=== PATIENT | female | born 1980 ===

== ENCOUNTER 2020-09-16 15:10 | Outpatient (REF) | payer OTHER, SELFPAY ==
--- NOTE | 2020-09-16 | MM_ITS ---
EXAMINATION: MM SCREENING DIGITAL BREAST TOMOSYNTHESIS, BILATERAL CLINICAL INFORMATION: Screening. Asymptomatic. The lifetime risk of breast cancer based on the Tyrer-Cuzick Model is 19.0%. COMPARISON: Mammography: February 22, 2019 and studies dating back to November 25, 2015 TECHNIQUE: Digital breast tomosynthesis is performed in both the craniocaudal and mediolateral oblique views along with computer-aided detection (CAD). Synthesized 2D images are generated from the tomosynthesis. Bilateral exaggerated craniocaudal views performed. FINDINGS: The breasts are extremely dense, which lowers the sensitivity of mammography (ACR BI-RADS breast composition Category d). There are no significant masses, abnormal calcifications, or other abnormalities. A stable cyst is seen within the superior aspect of the left breast. MM/MM tomosynthesis screening BI IMPRESSION: There are no significant changes from prior study. ASSESSMENT: BI-RADS 2: Benign RECOMMENDATION: Routine annual mammography screening. This patient's information was entered into a reminder system with a target due date for their next mammogram.
== END 2020-09-16 15:11 | disposition home or self-care (01) ==
LOC: HO.MAMMO 15:10
PROVIDERS: PCP Pediatrics; Visit Provider Pediatrics
DX: Z12.31 Encounter for screening mammogram for malignant neoplasm of breast (principal)
CPT/HCPCS: 77063; 77067

== ENCOUNTER 2021-11-09 15:27 | Outpatient (REF) | payer OTHER, SELFPAY ==
--- NOTE | ~2021-11-09 | US_ITS ---
EXAMINATION: US PELVIS CLINICAL INFORMATION: Excessive and frequent menstruation. COMPARISON: Pelvic ultrasound 01/10/2018 TECHNIQUE: Ultrasound of the pelvis is performed using both transabdominal and transvaginal transducers along with Doppler. Transvaginal imaging is performed due to inadequate visualization transabdominally. FINDINGS: Uterus: The uterus is anteverted and measures 10.9 x 4.9 x 6.8 cm. A single small right-sided fibroid is noted measuring 7 x 7 x 9 mm, not noted previously. Again noted is a arcuate versus septate configuration. The double wall endometrial thickness is 1.0 mm. Small amount of fluid is present in the endometrial cavity. The uterus is smooth in contour and has heterogeneous myometrial echogenicity. Adnexa: Both ovaries are visualized. There is normal color flow to the adnexa. There is no ovarian torsion. There is no pelvic ascites or fluid collection. Right ovary measures 3.9 x 2.4 x 2.1 cm for a volume of 10.1 mL and appears normal. Left ovary measures 3.3 x 2.9 x 3.8 cm for a volume of 18.8 mL and contains a dominant follicle measuring 2.1 x 1.7 x 2.3 cm. US/US pelvic and transvaginal IMPRESSION: 1. Small 9 mm uterine fibroid. 2. Small amount of fluid seen in the endometrial cavity consistent with excessive bleeding. 3. Functional left ovarian cyst needs no further follow-up.
== END 2021-11-09 15:28 | disposition home or self-care (01) ==
LOC: HO.HMGCX 15:27
PROVIDERS: PCP Pediatrics; Visit Provider Advanced Practice Midwife
DX: N92.1 Excessive and frequent menstruation with irregular cycle (principal)
CPT/HCPCS: 76830; 76856

== ENCOUNTER 2021-11-12 12:33 | Outpatient (REF) | payer OTHER, SELFPAY ==
--- NOTE | ~2021-11-12 | MM_ITS ---
EXAMINATION: MM DIAGNOSTIC DIGITAL BREAST TOMOSYNTHESIS, BILATERAL US DIAGNOSTIC ULTRASOUND BREAST, LEFT CLINICAL INFORMATION: Due for yearly. 5 month history pain upper outer left breast with some itching. No palpable mass. No discharge. The lifetime risk of breast cancer based on the Tyrer-Cuzick Model is 16%. COMPARISON: Mammography: 10/13/2020, 02/22/2019, 12/15/2016; targeted left breast ultrasound 02/28/2019 TECHNIQUE: Digital breast tomosynthesis is performed in both the craniocaudal and mediolateral oblique views along with computer-aided detection (CAD). Synthesized 2D images are generated from the tomosynthesis. Additional left MLO view is provided. Ultrasound left breast is targeted to the 1:00 through 5:00 position in area of symptoms) in addition, imaging is targeted to the upper inner quadrant, prior area of cystic change. FINDINGS: The breasts are extremely dense, which lowers the sensitivity of mammography (ACR BI-RADS breast composition Category d). Parenchymal pattern is similar to prior exams. There is no interval mass or architectural abnormality or developing density. No abnormal calcifications. There is a circumscribed nodule posterior medial left breast corresponding to a cyst on ultrasound. The axilla and skin contours are unremarkable. There is no skin thickening or coarsening of the Yuniel's ligaments. Ultrasound demonstrates no solid mass or architectural abnormality. There is no focal duct ectasia or skin thickening or edema tracking in soft tissue planes. Again, a cyst is present posterior 10:00 position measuring 1.5 x 1.1 x 0.8 cm. Prior measurements are 1.0 x 0.7 cm. There is also an incidental cyst outer left breast 3:00 position 5 cm from nipple measuring 1.0 x 0.5 cm. Results are discussed with the patient at time of visit. MM/MM tomosynthesis diagnostic BI IMPRESSION: 1. No mammographic evidence of malignancy or inflammatory changes. 2. Incidental cyst posterior medial breast 1.5 cm and outer left breast 1.0 cm. ASSESSMENT: BI-RADS 2: Benign RECOMMENDATION: 1. Patient's left breast pain and itching should be managed based on the clinical impression. 2. Otherwise, routine annual screening mammography. This patient's information was entered into a reminder system with a target due date for their next mammogram.
== END 2021-11-12 12:34 | disposition home or self-care (01) ==
LOC: HO.MAMMO 12:33
PROVIDERS: Visit Provider Advanced Practice Midwife
DX: N64.4 Mastodynia (principal); N60.01 Solitary cyst of right breast; N60.02 Solitary cyst of left breast
CPT/HCPCS: 76642; 77062; 77066

== ENCOUNTER 2022-01-29 13:38 | Outpatient (REF) | payer OTHER, SELFPAY ==
[2022-01-30 14:20] LABS: BV Int Neg Control Negative (Negative); BV Int Pos Control Positive (Positive)
== END 2022-01-29 13:39 | disposition home or self-care (01) ==
LOC: HO.LAB 13:38
PROVIDERS: PCP Pediatrics; Visit Provider Advanced Practice Midwife
DX: N93.9 Abnormal uterine and vaginal bleeding, unspecified (principal)
CPT/HCPCS: 87480; 87510; 87660; 99202

== ENCOUNTER 2022-02-05 13:40 | Outpatient (REF) | payer OTHER, SELFPAY | END 2022-02-05 13:41 | disposition home or self-care (01) | LOC: HO.LAB 13:40 | PROVIDERS: PCP Pediatrics; Visit Provider Advanced Practice Midwife | DX: N93.9 Abnormal uterine and vaginal bleeding, unspecified (principal); N64.4 Mastodynia | CPT/HCPCS: 58100; 81025; 88305 ==

== ENCOUNTER → 2022-02-18 15:54 | Outpatient (BNVA) | payer OTHER, SELFPAY | PROVIDERS: Visit Provider Advanced Practice Midwife | DX: Z71.2 Person consulting for explanation of examination or test findings (principal) | CPT/HCPCS: Q3014 ==

== ENCOUNTER 2022-05-28 12:09 | Outpatient (REF) | payer OTHER, SELFPAY ==
--- NOTE | ~2022-05-28 | XR_ITS ---
EXAMINATION: XR FOREARM, LEFT CLINICAL INFORMATION: Left forearm pain. COMPARISON: None. TECHNIQUE: AP and lateral views of the left forearm were obtained. FINDINGS: There is no evidence of acute fracture or dislocation of the left forearm. No elbow effusion is identified. There appears to be some soft tissue prominence about the proximal 3rd of the dorsal aspect of the ulna. XR/XR forearm LT 2V IMPRESSION: No significant bony abnormality of the left forearm.
== END 2022-05-28 12:10 | disposition home or self-care (01) ==
LOC: HO.XRAY 12:09
PROVIDERS: Absent Provider Pediatrics; PCP Pediatrics; Visit Provider Emergency Medicine
DX: M79.632 Pain in left forearm (principal)
CPT/HCPCS: 73090

== ENCOUNTER 2022-06-01 14:30 | Outpatient (REF) | payer OTHER, SELFPAY ==
--- NOTE | ~2022-06-01 | US_ITS ---
EXAMINATION: US VENOUS WITH DOPPLER UPPER EXTREMITY, LEFT CLINICAL INFORMATION: Forearm pain COMPARISON: None TECHNIQUE: Ultrasound of the upper extremity is performed using compression sonography and color and pulse Doppler flow with assessment of augmentation of flow. There is also imaging and Doppler assessment of the jugular and subclavian veins. Spectral analysis with color-flow imaging is performed. FINDINGS: Respiratory variation, normal compression, and augmented flow are noted throughout the upper extremity including the axillary, brachial, cubital, and radial and ulnar veins. There is normal flow in the internal jugular and subclavian veins. There is no visible deep or superficial thrombophlebitis. No ultrasound abnormality was identified in the region of patient's pain in the lateral upper forearm. US/US venous duplex UE LT IMPRESSION: No acute DVT demonstrated in the left upper extremity
== END 2022-06-01 14:31 | disposition home or self-care (01) ==
LOC: HO.US 14:30
PROVIDERS: Visit Provider Emergency Medicine
DX: M79.632 Pain in left forearm (principal)
CPT/HCPCS: 93971

== ENCOUNTER 2022-12-17 15:36 | Outpatient (REF) | payer OTHER, SELFPAY ==
--- NOTE | ~2022-12-17 | MM_ITS ---
EXAMINATION: MM SCREENING DIGITAL BREAST TOMOSYNTHESIS, BILATERAL CLINICAL INFORMATION: Screening. Asymptomatic. The lifetime risk of breast cancer based on the Tyrer-Cuzick Model is 9.0%. COMPARISON: Mammography: November 12, 2021 and studies dating back to November 25, 2015 TECHNIQUE: Digital breast tomosynthesis is performed in both the craniocaudal and mediolateral oblique views along with computer-aided detection (CAD). Synthesized 2D images are generated from the tomosynthesis. FINDINGS: The breasts are extremely dense, which lowers the sensitivity of mammography (ACR BI-RADS breast composition Category d). There are no new significant masses, abnormal calcifications, or other abnormalities. Dense nodular breast parenchyma with known cysts again seen. MM/MM tomosynthesis screening BI IMPRESSION: No significant changes from prior exam. ASSESSMENT: BI-RADS 2: Benign RECOMMENDATION: Routine annual mammography screening. This patient's information was entered into a reminder system with a target due date for their next mammogram.
== END 2022-12-17 15:37 | disposition home or self-care (01) ==
LOC: HO.MAMMO 15:36
PROVIDERS: PCP Pediatrics; Visit Provider Pediatrics
DX: Z12.31 Encounter for screening mammogram for malignant neoplasm of breast (principal)
CPT/HCPCS: 77063; 77067

== ENCOUNTER 2023-04-04 09:48 | Outpatient (REF) | payer OTHER, SELFPAY ==
[2023-04-05 08:56] LABS: BV Int Neg Control Negative (Negative); BV Int Pos Control Positive (Positive)
== END 2023-04-04 09:49 | disposition home or self-care (01) ==
LOC: HO.LAB 09:48
PROVIDERS: PCP Pediatrics; Visit Provider Advanced Practice Midwife
DX: Z01.419 Encounter for gynecological examination (general) (routine) without abnormal findings (principal); N89.8 Other specified noninflammatory disorders of vagina; B00.9 Herpesviral infection, unspecified; D25.9 Leiomyoma of uterus, unspecified
CPT/HCPCS: 87480; 87510; 87660

== ENCOUNTER 2023-04-22 12:54 | Outpatient (REF) | payer OTHER, SELFPAY ==
--- NOTE | ~2023-04-22 | US_ITS ---
EXAMINATION: US PELVIS CLINICAL INFORMATION: Leiomyoma of uterus. COMPARISON: 11/09/2021 TECHNIQUE: Ultrasound of the pelvis is performed using both transabdominal and transvaginal transducers along with Doppler. Transvaginal imaging is performed due to inadequate visualization transabdominally. FINDINGS: UTERUS: The uterus is anteverted and measures 11.0 x 4.9 x 7.0 cm. The double wall endometrial thickness is 13 mm. The uterus is smooth in contour and has normal myometrial echogenicity. The uterus appears arcuate in configuration. A single right-sided uterine fibroid is present, minimally larger than previously seen at 1.1 x 0.9 x 0.9 cm (previously 0.7 x 0.7 x 0.9 cm). Nabothian cyst is present in the cervix. ADNEXA: Both ovaries are visualized. There is normal color flow to the adnexa. There is no ovarian torsion. There is no pelvic ascites or fluid collection. Right ovary measures 5.6 x 4.3 x 4.1 cm for a volume of 51 mL which includes a complex hemorrhagic 3.9 x 4.0 x 3.7 cm cyst. Left ovary measures 4.1 x 2.3 x 3.2 cm for a volume of 15.5 mL and appears normal. US/US pelvic and transvaginal IMPRESSION: 1. Small uterine fibroid, minimally larger than previously seen. 2. Arcuate configuration of the uterus. 3. Hemorrhagic 4 cm right ovarian cyst. Consider followup in 3 months' time to assess for resolution.
== END 2023-04-22 12:55 | disposition home or self-care (01) ==
LOC: HO.HMGCX 12:54
PROVIDERS: PCP Pediatrics; Visit Provider Advanced Practice Midwife
DX: D25.9 Leiomyoma of uterus, unspecified (principal)
CPT/HCPCS: 76830; 76856

== ENCOUNTER → 2023-05-11 15:13 | Outpatient (BNVA) | payer OTHER, SELFPAY | PROVIDERS: PCP Pediatrics; Visit Provider Advanced Practice Midwife | DX: Z71.2 Person consulting for explanation of examination or test findings (principal); D25.9 Leiomyoma of uterus, unspecified; N83.201 Unspecified ovarian cyst, right side | CPT/HCPCS: 99212 ==

== ENCOUNTER 2023-06-06 15:19 | Outpatient (REF) | payer OTHER, SELFPAY ==
--- NOTE | ~2023-06-06 | US_ITS ---
EXAMINATION: US PELVIS COMPLETE CLINICAL INFORMATION: Right ovarian cyst. COMPARISON: Pelvic ultrasound 04/22/2023 TECHNIQUE: Transabdominal and transvaginal imaging was performed. FINDINGS: The uterus is of anteverted in position and of arcuate morphology measuring 10.2 x 4.7 x 7.3 cm. A regular homogeneous endometrium is identified measuring 1.1 cm. Nabothian cysts in the cervix. Small volume of fluid in the endocervical canal canal. A 0.9 cm intramural myoma in the anterior body of the uterus previously 1.1 cm. Both ovaries are of normal appearance of bilateral physiologic follicles are present, normal finding. No follow-up imaging recommended.. The right measures 4.2 x 3.0 x 2.2 cm for a volume of 14.7 mL. The left measures 3.6 x 2.9 x 4.0 cm for a volume of 22.1 mL. Interval resolution of the previously seen hemorrhagic right ovarian cyst. There is no pelvic free fluid. US/US pelvic and transvaginal IMPRESSION: 1. Interval resolution of the previously seen hemorrhagic right ovarian cyst. 2. Small volume of fluid in the endocervical canal. Acute morphology of the uterus. 3. A 0.9 cm intramural myoma in the anterior body of the uterus.
== END 2023-06-06 15:20 | disposition home or self-care (01) ==
LOC: HO.HMGCX 15:19
PROVIDERS: PCP Pediatrics; Visit Provider Advanced Practice Midwife
DX: N83.201 Unspecified ovarian cyst, right side (principal)
CPT/HCPCS: 76830; 76856

== ENCOUNTER → 2023-06-23 15:08 | Outpatient (BNVA) | payer OTHER, SELFPAY | PROVIDERS: PCP Pediatrics; Visit Provider Advanced Practice Midwife | DX: N83.201 Unspecified ovarian cyst, right side (principal); D25.1 Intramural leiomyoma of uterus | CPT/HCPCS: 99212 ==

== ENCOUNTER 2023-08-31 09:47 | Outpatient (AMB) | payer OTHER, SELFPAY ==
[2023-08-31 09:55] VITALS: BP 104/70; BMI 25.3
--- NOTE | 2023-08-31 09:55 | A.OFFVIS_ITS ---
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 Prior history of left breast cysts. Denies any injuries to breast, surgery, or nipple discharge. Also reports at visit frequent urination and slight lower right pelvic pain, pain with intimacy. Denies changes in bowel movements. [facility] Medical History (Updated 08/31/23 @ 10:31 by Conchita Petit) Cyst of left breast Breast pain Frequency of urination Pelvic pain Hemorrhagic cyst of right ovary HSV-2 (herpes simplex virus 2) infection Benign breast cyst in female Surgical History H/O ovarian cystectomy Hx of tubal ligation Family History Maternal Aunt History of breast cancer Paternal Aunt History of breast cancer Social History Alcohol intake: never Patient Tobacco Use Status: Never used Tobacco Sexual orientation: Straight/Heterosexual Gender identity: Female Female Reproductive History Menstrual Age of Menarche: 9 Date of last menstrual period: 08/19/23 control method: permanent sterilization Total pregnancies: 2 Full term: 2 Number of Living Children: 2 Date of last pap smear: 11/29/18 (negative) History of abnormal pap smear: Yes (2009 2008 ASCUS) Date of Mammogram: 12/17/22 Physical Exam Vital Signs: Last Vital Signs BP 104/70 08/31/23 09:55 BMI result Body Mass Index 25.3 Const General: cooperative, healthy appearing, no acute distress, well developed and alert Chest Other: pain on left breast between 1:00 and 5:00 tender with exam and venegas. Chest palpation & inspection: normal inspection of the chest Breast/axilla inspection: normal inspection of the breasts (no puckering, dimpling, peau de orange, retraction, discharge, masses) Breast/axilla palpation: normal palpation of the breasts General: Yes bladder normal to inspection External Female Exam: normal external appearance and normal appearance of the urethra Speculum Exam - Vagina: normal appearance of the vagina, normal palpation and normal vaginal discharge Speculum Exam - Cervix: normal appearance of the cervix and normal palpation Bimanual exam- vagina & uterus: normal palpation and normal palpation Bimanual Exam- Adnexa, other: normal adnexae and no masses Results AMB Urinalysis, Automated UA Leukoctes 0 Chiqui/uL Last Edit by CHOCO Fernandez on 08/31/23 11:59 UA Nitrite Negative Last Edit by Shubham Lai Ciarra on 08/31/23 11:59 UA Urobilinogen 0 mg/dL Last Edit by Shubham Lai Ciarra on 08/31/23 11:59 UA Protein 0 mg/dL Last Edit by Shubham Lai Ciarra on 08/31/23 11:59 UA pH 6 Last Edit by Shubham Lai [facility] on 08/31/23 11:59 UA Blood 3 Alcides/uL Last Edit by Shubham Lai Ciarra on 08/31/23 11:59 UA Specific [place] 1.015 Last Edit by Shubham Lai [facility] on 08/31/23 11: 59 UA Ketone Negative Last Edit by Shubham Lai Ciar[facility] on 08/31/23 11:59 UA Bilirubin 0 mg/dL Last Edit by Shubham Lai [facility] on 08/31/23 11:59 UA Glucose 0 mg/dL Last Edit by Shubham Lai Ciar[facility] on 08/31/23 11:59 AMB Test Urine AMB Test Urine Negative Last Edit by Shubham Lai Ciarra on 08/31/23 12:20 Results Reviewed Results Reviewed: Laboratory Last Values Urine pH (Auto) 6 08/31/23 11:58 Specific [place] (Auto) 1.015 08/31/23 11:58 Urine Protein (Auto) 0 mg/dL 08/31/23 11:58 Glucose (UA)(Auto) 0 mg/dL 08/31/23 11:58 Urine Ketones (Auto) Negative 08/31/23 11:58 Urine Blood (Auto) 3 Alcides/uL 08/31/23 11:58 Urine Nitrite (Auto) Negative 08/31/23 11:58 Urine Bilirubin (Auto) 0 mg/dL 08/31/23 11:58 Urine Urobilinogen (Auto) 0 mg/dL 08/31/23 11:58 Leukocyte Esterase (Auto) 0 Chiqui/uL 08/31/23 11:58 Tst Clinic Negative 08/31/23 12:20 EXAMINATION: US PELVIS COMPLETE CLINICAL INFORMATION: Right ovarian cyst. COMPARISON: Pelvic ultrasound 04/22/2023 TECHNIQUE: Transabdominal and transvaginal imaging was performed. FINDINGS: The uterus is of anteverted in position and of arcuate morphology measuring 10.2 x 4.7 x 7.3 cm. A regular homogeneous endometrium is identified measuring 1.1 cm. Nabothian cysts in the cervix. Small volume of fluid in the endocervical canal canal. A 0.9 cm intramural myoma in the anterior body of the uterus previously 1.1 cm. Both ovaries are of normal appearance of bilateral physiologic follicles are present, normal finding. No follow-up imaging recommended.. The right measures 4.2 x 3.0 x 2.2 cm for a volume of 14.7 mL. The left measures 3.6 x 2.9 x 4.0 cm for a volume of 22.1 mL. Interval resolution of the previously seen hemorrhagic right ovarian cyst. There is no pelvic free fluid. US/US pelvic and transvaginal IMPRESSION: 1. Interval resolution of the previously seen hemorrhagic right ovarian cyst. 2. Small volume of fluid in the endocervical canal. Acute morphology of the uterus. 3. A 0.9 cm intramural myoma in the anterior body of the uterus. EXAMINATION: MM SCREENING DIGITAL BREAST TOMOSYNTHESIS, BILATERAL CLINICAL INFORMATION: Screening. Asymptomatic. The lifetime risk of breast cancer based on the Tyrer-Cuzick Model is 9.0%. COMPARISON: Mammography: November 12, 2021 and studies dating back to November 25, 2015 TECHNIQUE: Digital breast tomosynthesis is performed in both the craniocaudal and mediolateral oblique views along with computer-aided detection (CAD). Synthesized 2D images are generated from the tomosynthesis. FINDINGS: The breasts are extremely dense, which lowers the sensitivity of mammography (ACR BI-RADS breast composition Category d). There are no new significant masses, abnormal calcifications, or other abnormalities. Dense nodular breast parenchyma with known cysts again seen. MM/MM tomosynthesis screening BI IMPRESSION: No significant changes from prior exam. ASSESSMENT: BI-RADS 2: Benign RECOMMENDATION: Routine annual mammography screening. This patient's information was entered into a reminder system with a target due date for their next mammogram. Assessment & Plan Assessment & Plan (1) Breast pain: Comment: left breast Code(s): N64.4 - Mastodynia Plan: Discussed: Breast US/bilateral Dx. mammogram ordered. All of her questions and concerns were addressed to the best of my ability and shared decision making. She is agreeable to plan of care. RTO for follow up. (2) Pelvic pain: Code(s): R10.2 - Pelvic and perineal pain Plan: Pelvic US ordered. Advised may use: Tylenol or ibuprofen 200 mg (600 milligrams) with food for pain management, and/or heating pad. If experience severe pain report to ED. RTO for follow up pending results. (3) Frequency of urination: Code(s): R35.0 - Frequency of micturition Plan: see orders. (4) Cyst of left breast: Code(s): N60.02 - Solitary cyst of left breast Orders: Orders US breast LT complete Today N64.4 - Mastodynia Urine Culture Today R10.2 - Pelvic and perineal pain, R35.0 - Frequency of micturition CT NG by PCR Today R10.2 - Pelvic and perineal pain Bacterial Vaginosis Panel Today R10.2 - Pelvic and perineal pain AMB Urinalysis Automated Today R10.2 - Pelvic and perineal pain AMB HCG Urine Test Today R35.0 - Frequency of micturition US pelvic and transvaginal Today R10.2 - Pelvic and perineal pain MM tomosynthesis diagnostic BI Today N60.02 - Solitary cyst of left breast, N64.4 - Mastodynia Coding Level of Care Code Est Pt Level 4 (84647) Diagnoses Breast pain N64.4 Pelvic pain R10.2 Frequency of urination R35.0 Cyst of left breast N60.02
== END 2023-08-31 10:54 | disposition home or self-care (01) ==
PROVIDERS: PCP Pediatrics; Visit Provider Advanced Practice Midwife
DX: N64.4 Mastodynia (principal); R10.2 Pelvic and perineal pain; R35.0 Frequency of micturition; N60.02 Solitary cyst of left breast
CPT/HCPCS: 99214

== ENCOUNTER 2023-08-31 09:47 | Outpatient (REF) | payer OTHER, SELFPAY ==
[2023-08-31 14:39] LABS: CT PCR NOT DETECTED (Not Detect.); NG PCR NOT DETECTED (Not Detect.)
[2023-09-01 13:48] LABS: BV Int Neg Control Negative (Negative); BV Int Pos Control Positive (Positive)
== END 2023-08-31 09:48 | disposition home or self-care (01) ==
LOC: HO.LNP 09:47
PROVIDERS: PCP Pediatrics; Visit Provider Advanced Practice Midwife
DX: N64.4 Mastodynia (principal); R10.2 Pelvic and perineal pain; R35.0 Frequency of micturition; N60.02 Solitary cyst of left breast
CPT/HCPCS: 0353U; 81003; 81025; 87086; 87480; 87510; 87660; 99212

== ENCOUNTER 2023-09-20 15:21 | Outpatient (REF) | payer OTHER, SELFPAY ==
--- NOTE | ~2023-09-20 | US_ITS ---
EXAMINATION: US PELVIS CLINICAL INFORMATION: Pelvic and perineal pain. LMP 09/16/2023. COMPARISON: 06/06/2023 TECHNIQUE: Ultrasound of the pelvis is performed using both transabdominal and transvaginal transducers along with Doppler. Transvaginal imaging is performed due to inadequate visualization transabdominally. FINDINGS: Uterus: The uterus is anteverted. The uterus measures 10.8 x 4.6 x 6.6 cm. The endometrial stripe measures 1.2 cm in thickness. Trace fluid in the cervical canal. Adnexa: The right ovary measures 4.2 x 1.7 x 3.0 cm for a volume of 11.2 mL. The left ovary is not well visualized. Thick-walled tubular structure in the left adnexa measuring up to 1.2 cm. No free fluid in pelvis. US/US pelvic and transvaginal IMPRESSION: Thick-walled tubular structure in the left adnexa measuring up to 1.2 cm. This may represent hydrosalpinx.
== END 2023-09-20 15:22 | disposition home or self-care (01) ==
LOC: HO.HMGCX 15:21
PROVIDERS: PCP Pediatrics; Visit Provider Advanced Practice Midwife
DX: R10.2 Pelvic and perineal pain (principal)
CPT/HCPCS: 76830; 76856

== ENCOUNTER 2023-09-29 14:20 | Outpatient (REF) | payer OTHER, SELFPAY ==
--- NOTE | ~2023-09-29 | US_ITS ---
EXAMINATION: MM DIAGNOSTIC DIGITAL BREAST TOMOSYNTHESIS, BILATERAL US BREAST LIMITED, LEFT MAMMOGRAPHY: CLINICAL INFORMATION: Left breast pain 1:00 to 5:00. 42-year-old female. COMPARISON: Mammography: 12/17/2022, 11/12/2021, 09/16/2020. TECHNIQUE: Digital breast tomosynthesis is performed in both the craniocaudal and mediolateral oblique views along with computer-aided detection (CAD). Synthesized 2D images are generated from the tomosynthesis. In addition a 3-D full-field left mediolateral view was obtained. The area of pain was marked by the technologist with triangle markers. FINDINGS: The breasts are extremely dense, which lowers the sensitivity of mammography (ACR BI-RADS breast composition Category d). There is a stable posterior mass in the left breast posterior one third along the nipple line. This corresponds to a cyst previously seen on ultrasound. Otherwise, There are no suspicious masses, suspicious grouped calcifications, or areas of architectural distortion in either breast. The parenchymal pattern is stable from prior exams. No mammographic abnormalities are identified in the 1:00 to 5:00 axis of the left breast in the region of breast pain. ULTRASOUND: CLINICAL INFORMATION: Left breast pain 1:00 to 5:00. COMPARISON: None TECHNIQUE: Targeted sonographic evaluation was performed using a high frequency linear transducer. Attention left breast 1:00 to 5:00 was performed. Selected archived documentation. FINDINGS: LEFT BREAST: A small oval circumscribed hypoechoic mass measuring 1.0 x 0.5 x 0.6 cm is present in the left breast at the 3:00 axis, 2 cm from the nipple, without internal blood flow, and with good through transmission. This is most likely an incidental fibroadenoma, and 6 month interval follow-up recommended. In the region of breast pain 1:00 to 5:00 axis, no masses or other abnormalities are identified. No abnormal shadowing or cystic abnormalities. No ultrasonographic correlate to the region of breast pain. US/US breast LT limited mamm only IMPRESSION: No findings suspicious for malignancy in either breast. Benign findings including a probable fibroadenoma in the left breast at the 2:00 axis. Six-month interval follow-up ultrasound recommended to ensure stability. No sonographic or mammographic correlate to the focus of breast pain in the 1:00 to 5:00 axis left breast. Recommend clinical management. OVERALL ASSESSMENT: Mammography: BI-RADS 2 - Benign Findings Ultrasound: BI-RADS 2 - Benign Findings RECOMMENDATION: 1. Patient should be managed based on the clinical impression. 2. Otherwise, routine annual screening mammography. Results were provided to the patient at time of visit by the technologist. This patient's information was entered into a reminder system with a target due date for their next mammogram.
== END 2023-09-29 14:21 | disposition home or self-care (01) ==
LOC: HO.MAMMO 14:20
PROVIDERS: PCP Pediatrics; Visit Provider Advanced Practice Midwife
DX: N64.4 Mastodynia (principal); N60.02 Solitary cyst of left breast
CPT/HCPCS: 76642; 77062; 77066

== ENCOUNTER → 2023-09-29 14:30 | Outpatient (BNV) | payer OTHER, SELFPAY | PROVIDERS: PCP Pediatrics; Visit Provider Radiology Diagnostic Radiology | DX: D24.2 Benign neoplasm of left breast (principal); R92.313 Mammographic fatty tissue density, bilateral breasts | CPT/HCPCS: 76642; 77062; 77066 ==

== ENCOUNTER 2023-10-04 14:41 | Outpatient (AMB) | payer OTHER, SELFPAY ==
[2023-10-04 14:42] VITALS: BP 110/64; BMI 25.3
--- NOTE | 2023-10-04 14:42 | A.OFFVIS_ITS ---
Intake Vital Signs 10/04/23 14:42 Height 5 ft 3 in Weight 143 lb BMI 25.3 BP 110/64 Intake Visit Reasons: US follow up Gunner Mate: Gunner Mate Present (Maria E) Allergies No Known Allergies Allergy (Verified 10/04/23 14:42) Is last menstrual period known: Yes Last menstrual period: 10/04/23 HPI HPI Comments History of Present Illness Details Patient is here for follow-up ultrasound of the pelvis and breast ultrasound and breast diagnostic mammogram. Has a history of pelvic pain midline to the right side slightly. Breast pain left breast. Imaging on the breast is still pending read. She reports her menses are every 25-6 days not heavy or prolonged. [facility] Medical History Cyst of left breast Breast pain Frequency of urination Pelvic pain Hemorrhagic cyst of right ovary HSV-2 (herpes simplex virus 2) infection Benign breast cyst in female Surgical History H/O ovarian cystectomy Hx of tubal ligation Family History Maternal Aunt History of breast cancer Paternal Aunt History of breast cancer Alcohol intake: never Patient Tobacco Use Status: Never used Tobacco Sexual orientation: Straight/Heterosexual Gender identity: Female Female Reproductive History Menstrual Age of Menarche: 9 Date of last menstrual period: 10/04/23 Review of Systems Const All systems reviewed & are unremarkable except as noted in HPI and below Physical Exam Vital Signs: Last Vital Signs BP 110/64 10/04/23 14:42 BMI result Body Mass Index 25.3 Const General: cooperative, healthy appearing and no acute distress Orientation/consciousness: patient oriented x3 GI Inspection: Yes normal to inspection Palpation (GI): Soft to palpation and Other GI palpation findings present (Nontender) Rectal Exam - Female: visual inspection normal General: Yes bladder normal to palpation External Female Exam: normal appearance of the urethra Speculum Exam - Vagina: normal appearance of the vagina, normal palpation and normal vaginal discharge Speculum Exam - Cervix: normal appearance of the cervix and normal palpation Bimanual exam- vagina & uterus: normal bimanual exam, normal palpation, uterine size normal, bladder normal to palpation, normal palpation, uterine shape normal and non-tender Bimanual Exam- Adnexa, other: normal adnexae Neuro General: patient oriented x3 Assessment & Plan Assessment & Plan (1) Hydrosalpinx: Code(s): N70.11 - Chronic salpingitis (2) Breast pain: Comment: left breast Code(s): N64.4 - Mastodynia (3) Encounter to discuss test results: Code(s): Z71.2 - Person consulting for explanation of examination or test findings Plan Discussed: Hydrosalpinx, demonstrated on the web pictures. Advised to call if there is any pelvic pain for further treatment and plan care. Patient has a normal exam today. Plan repeat imaging in 3 months or sooner if any problems arise Breast imaging is still pending patient reports random left-sided breast pain. Advised comfortable sports bra. OTC self-medication for discomfort. Arnica gel as needed p.r.n. follow up with any change in breast lumps worsening pain. Orders: Orders US pelvic and transvaginal 3 Months N70.11 - Chronic salpingitis Coding Level of Care Code Est Pt Level 3 (95827) Diagnoses Hydrosalpinx N70.11 Breast pain N64.4 Encounter to discuss test results Z71.2
== END 2023-10-04 15:14 | disposition home or self-care (01) ==
LOC: HO.HWS 14:41
PROVIDERS: PCP Pediatrics; Visit Provider Advanced Practice Midwife
DX: N70.11 Chronic salpingitis (principal); N64.4 Mastodynia; Z71.2 Person consulting for explanation of examination or test findings
CPT/HCPCS: 99213

== ENCOUNTER → 2023-10-04 14:41 | Outpatient (BNVA) | payer OTHER, SELFPAY | PROVIDERS: PCP Pediatrics; Visit Provider Advanced Practice Midwife | DX: Z71.2 Person consulting for explanation of examination or test findings (principal); N70.11 Chronic salpingitis; N64.4 Mastodynia | CPT/HCPCS: 99212 ==

== ENCOUNTER 2023-10-19 13:17 | Outpatient (AMB) | payer OTHER, SELFPAY ==
--- NOTE | 2023-10-19 13:33 | MHC.OFFVIS ---
Intake Vital Signs 10/19/23 13:34 Height 5 ft 3 in Weight 143 lb BMI 25.3 BP 90/62 Intake Visit Reasons: pelvic pain Intake Note: pt c/o pain and discharge Pad Extractor Tender: Pad Extractor Tender Present (Maria E) Allergies No Known Allergies Allergy (Verified 10/19/23 13:34) HPI HPI Comments History of Present Illness Details Patient is here today with increased pelvic discomfort, history of hydrosalpinx. She reports cramping and increased mucousy discharge. No specific pain on her left or right adnexa most discomfort midline. PFSH Medical History Cyst of left breast Breast pain Frequency of urination Pelvic pain Hemorrhagic cyst of right ovary HSV-2 (herpes simplex virus 2) infection Benign breast cyst in female Surgical History H/O ovarian cystectomy Hx of tubal ligation Family History Maternal Aunt History of breast cancer Paternal Aunt History of breast cancer Social History Alcohol intake: never Patient Tobacco Use Status: Never used Tobacco Sexual orientation: Straight/Heterosexual Gender identity: Female Female Reproductive History Menstrual Age of Menarche: 9 Review of Systems Const All systems reviewed & are unremarkable except as noted in HPI and below Physical Exam Vital Signs: Last Vital Signs BP 90/62 10/19/23 13:34 BMI result Body Mass Index 25.3 Const General: cooperative, healthy appearing and no acute distress Orientation/consciousness: patient oriented x3 GI Inspection: Yes normal to inspection Palpation (GI): Soft to palpation and Other GI palpation findings present (Nontender) Rectal Exam - Female: visual inspection normal General: Yes bladder normal to palpation External Female Exam: normal appearance of the urethra Speculum Exam - Vagina: normal appearance of the vagina, normal palpation and normal vaginal discharge Speculum Exam - Cervix: normal appearance of the cervix and normal palpation Bimanual exam- vagina & uterus: normal bimanual exam, normal palpation, uterine size normal, bladder normal to palpation, normal palpation and uterine shape normal (Slightly tender) Bimanual Exam- Adnexa, other: normal adnexae Neuro General: patient oriented x3 Office Meds ceftriaxone 500 mg solution for injection Performing Provider: Erin Martinez CNM [place] [facility] [place] [facility] Administered by: Shahnaz Sher LPN on 10/19/23 14:13 Dose Route Admin Location Dispensed Lot Number Expiration Date NDC Angle Shear Operator 500 mg IM rt. gluteus 500 mg [id number] 03/13/25 0806-8511-66 [facility]OS[employer] Results AMB Urinalysis, Automated UA Leukoctes 0 Chiqui/uL Last Edit by CHOCO Ng on 10/19/23 13:52 UA Nitrite Negative Last Edit by CHOCO Ng on 10/19/23 13:52 UA Urobilinogen 0 mg/dL Last Edit by CHOCO Ng on 10/19/23 13:52 UA Protein 0 mg/dL Last Edit by CHOCO Ng on 10/19/23 13:52 UA pH 6.5 Last Edit by CHOCO Ng on 10/19/23 13:52 UA Blood 3 Alcides/uL Last Edit by CHOCO Ng on 10/19/23 13:52 UA Specific [place] 1.015 Last Edit by CHOCO Ng on 10/19/23 13:52 UA Ketone Negative Last Edit by CHOCO Ng on 10/19/23 13:52 UA Bilirubin 0 mg/dL Last Edit by CHOCO Ng on 10/19/23 13:52 UA Glucose 0 mg/dL Last Edit by CHOCO Ng on 10/19/23 13:52 AMB Test Urine AMB Test Urine Negative Last Edit by CHOCO Ng on 10/19/23 13:52 Results Reviewed Results Reviewed: Laboratory Last Values Urine pH (Auto) 6.5 10/19/23 13:51 Specific [place] (Auto) 1.015 10/19/23 13:51 Urine Protein (Auto) 0 mg/dL 10/19/23 13:51 Glucose (UA)(Auto) 0 mg/dL 10/19/23 13:51 Urine Ketones (Auto) Negative 10/19/23 13:51 Urine Blood (Auto) 3 Alcides/uL 10/19/23 13:51 Urine Nitrite (Auto) Negative 10/19/23 13:51 Urine Bilirubin (Auto) 0 mg/dL 10/19/23 13:51 Urine Urobilinogen (Auto) 0 mg/dL 10/19/23 13:51 Leukocyte Esterase (Auto) 0 Chiqui/uL 10/19/23 13:51 Tst Clinic Negative 10/19/23 13:51 Assessment & Plan Assessment & Plan (1) Hydrosalpinx: Code(s): N70.11 - Chronic salpingitis Plan Discussed the treatment plan for hydrosalpinx. To include ceftriaxone in office. An outpatient use of doxycycline and Flagyl p.o. for 2 weeks. Fkob-dat-kdezlfa comfort measures medication, heating pad. Advised to call if there is any increased pain in report to the ED if there is any. Return to the office in 2 days for pelvic recheck. Counseled: Advised to complete all medication. Possible GI upset-take medication with food. Avoid vinegar products-salad dressing, and pickles. Side effects: metallic taste-temporary, will resolve after treatment, may try a mint, lemon drops or gum. NO ALCOHOL use during treatment and including up to 48 hours after medication is completed. All of her questions and concerns were addressed to the best of my ability and shared decision making. She is agreeable to the plan of care. Orders: Orders AMB Urinalysis Automated Today R10.2 - Pelvic and perineal pain AMB Ceftriaxone Injection Today N70.11 - Chronic salpingitis AMB HCG Urine Test Today R10.2 - Pelvic and perineal pain Medications: New metronidazole 500 mg PO BID 28 tabs 0RF 14 days doxycycline hyclate 100 mg PO BID 28 caps 0RF 14 days Coding Level of Care Code Est Pt Level 4 (75591) Diagnoses Hydrosalpinx N70.11
[2023-10-19 13:34] VITALS: BP 90/62; BMI 25.3
== END 2023-10-19 14:17 | disposition home or self-care (01) ==
PROVIDERS: PCP Pediatrics; Visit Provider Advanced Practice Midwife
DX: N70.11 Chronic salpingitis (principal); R10.2 Pelvic and perineal pain
CPT/HCPCS: 99214

== ENCOUNTER → 2023-10-19 13:17 | Outpatient (BNVA) | payer OTHER, SELFPAY | PROVIDERS: PCP Pediatrics; Visit Provider Advanced Practice Midwife | DX: N70.11 Chronic salpingitis (principal) | CPT/HCPCS: 81003; 81025; 96372; 99212; J0696 ==

== ENCOUNTER 2023-10-21 14:28 | Outpatient (AMB) | payer OTHER, SELFPAY ==
--- NOTE | 2023-10-21 14:30 | MHC.OFFVIS ---
Intake Vital Signs 10/21/23 14:35 Height 5 ft 3 in Weight 141 lb 1.533 oz BMI 25.0 BP 98/60 Intake Visit Reasons: 2 day follow up/ok per Maria E Automotive Engineering Teacher Required: No Information Interpreted: non-clinical & clinical Cable Coverer: Cable Coverer Present (Alma Joseph CHOCO) Accompanied by: Self / Same As Patient Allergies No Known Allergies Allergy (Verified 10/21/23 14:43) HPI HPI Comments History of Present Illness Details Patient is here for short interval follow-up due to recent treatment for hydrosalpinx with ceftriaxone. She is currently taking her doxycycline and Flagyl b.i.d. tolerating it well. She reports feeling better. [facility] Medical History Cyst of left breast Breast pain Frequency of urination Pelvic pain Hemorrhagic cyst of right ovary HSV-2 (herpes simplex virus 2) infection Benign breast cyst in female Surgical History H/O ovarian cystectomy Hx of tubal ligation Family History Maternal Aunt History of breast cancer Paternal Aunt History of breast cancer Social History Alcohol intake: never Patient Tobacco Use Status: Never used Tobacco Sexual orientation: Straight/Heterosexual Gender identity: Female Female Reproductive History Menstrual Age of Menarche: 9 Review of Systems Const All systems reviewed & are unremarkable except as noted in HPI and below Physical Exam Vital Signs: Last Vital Signs BP 98/60 10/21/23 14:35 BMI result Body Mass Index 25.0 Const General: cooperative, healthy appearing and no acute distress Orientation/consciousness: patient oriented x3 GI Inspection: Yes normal to inspection Palpation (GI): Soft to palpation and Other GI palpation findings present (Nontender) Rectal Exam - Female: visual inspection normal General: Yes bladder normal to palpation External Female Exam: normal appearance of the urethra Speculum Exam - Vagina: normal appearance of the vagina, normal palpation and normal vaginal discharge Speculum Exam - Cervix: normal appearance of the cervix and normal palpation Bimanual exam- vagina & uterus: normal bimanual exam, normal palpation, uterine size normal, bladder normal to palpation, normal palpation, uterine shape normal and non-tender Bimanual Exam- Adnexa, other: normal adnexae Neuro General: patient oriented x3 Assessment & Plan Assessment & Plan (1) Hydrosalpinx: Code(s): N70.11 - Chronic salpingitis Plan Patient has a follow-up in 2 weeks already scheduled advised to finish taking her antibiotics completely. Hydrate well. Report any changes or concerns. Coding Level of Care Code Est Pt Level 3 (93683) Diagnoses Hydrosalpinx N70.11
[2023-10-21 14:35] VITALS: BP 98/60; BMI 25.0
== END 2023-10-21 15:24 | disposition home or self-care (01) ==
PROVIDERS: PCP Pediatrics; Visit Provider Advanced Practice Midwife
DX: N70.11 Chronic salpingitis (principal)
CPT/HCPCS: 99213

== ENCOUNTER → 2023-10-21 14:28 | Outpatient (BNVA) | payer OTHER, SELFPAY | PROVIDERS: PCP Pediatrics; Visit Provider Advanced Practice Midwife | DX: N70.11 Chronic salpingitis (principal) | CPT/HCPCS: 99212 ==

== ENCOUNTER 2023-10-31 14:59 | Outpatient (AMB) | payer OTHER, SELFPAY ==
--- NOTE | 2023-10-31 15:02 | A.OFFVIS_ITS ---
Intake Vital Signs 10/31/23 15:03 Height 5 ft 3 in Weight 141 lb BMI 25.0 BP 100/64 Intake Visit Reasons: pelvic recheck Customer Energy Specialist: Customer Energy Specialist Present (Maria E) Allergies No Known Allergies Allergy (Verified 10/31/23 15:03) Is last menstrual period known: Yes Last menstrual period: 10/31/23 HPI HPI Comments History of Present Illness Details Patient is here for follow-up on her treatment for salpingitis she is a couple of days out before finishing her antibiotics. She reports feeling well her discharge has improved no other concerns. She currently has her menses today. Mild cramping with her cycle today. [facility] Medical History Cyst of left breast Breast pain Frequency of urination Pelvic pain Hemorrhagic cyst of right ovary HSV-2 (herpes simplex virus 2) infection Benign breast cyst in female Surgical History H/O ovarian cystectomy Hx of tubal ligation Family History Maternal Aunt History of breast cancer Paternal Aunt History of breast cancer Social History Alcohol intake: never Patient Tobacco Use Status: Never used Tobacco Sexual orientation: Straight/Heterosexual Gender identity: Female Female Reproductive History Menstrual Age of Menarche: 9 Date of last menstrual period: 10/31/23 Review of Systems Const All systems reviewed & are unremarkable except as noted in HPI and below Physical Exam Vital Signs: Last Vital Signs BP 100/64 10/31/23 15:03 BMI result Body Mass Index 25.0 Const General: cooperative, healthy appearing and no acute distress Orientation/consciousness: patient oriented x3 GI Inspection: Yes normal to inspection Palpation (GI): Soft to palpation and Other GI palpation findings present (Nontender) Rectal Exam - Female: visual inspection normal General: Yes bladder normal to palpation External Female Exam: normal appearance of the urethra Speculum Exam - Vagina: normal appearance of the vagina, normal palpation and vaginal bleeding Speculum Exam - Cervix: normal appearance of the cervix and normal palpation Bimanual exam- vagina & uterus: normal bimanual exam, normal palpation, uterine size normal, bladder normal to palpation, normal palpation, uterine shape normal and non-tender Bimanual Exam- Adnexa, other: normal adnexae OB/external & speculum: vaginal bleeding Neuro General: patient oriented x3 Assessment & Plan Assessment & Plan (1) Salpingitis: Code(s): N70.91 - Salpingitis, unspecified Plan Normal examination in follow-up for her salpingitis. She was encouraged to finish all her antibiotics and report any concerns. Her next appointment is March 2024 for her annual exam. OTC medication use, Ibuprofen 600 mg (3-200mg tablets), with food every 6 hours for the first 1-3days of menses only p.r.n. Coding Level of Care Code Est Pt Level 3 (67451) Diagnoses Salpingitis N70.91
[2023-10-31 15:03] VITALS: BP 100/64; BMI 25.0
== END 2023-10-31 16:05 | disposition home or self-care (01) ==
PROVIDERS: PCP Pediatrics; Visit Provider Advanced Practice Midwife
DX: N70.91 Salpingitis, unspecified (principal)
CPT/HCPCS: 99213

== ENCOUNTER → 2023-10-31 14:59 | Outpatient (BNVA) | payer OTHER, SELFPAY | PROVIDERS: PCP Pediatrics; Visit Provider Advanced Practice Midwife | DX: N70.91 Salpingitis, unspecified (principal) | CPT/HCPCS: 99212 ==

== ENCOUNTER 2023-12-30 15:23 | Outpatient (REF) | payer OTHER, SELFPAY ==
--- NOTE | ~2023-12-30 | US_ITS ---
EXAMINATION: US PELVIS WITH TRANSVAGINAL CLINICAL INFORMATION: Chronic salpingitis, last menstrual period 12/24/2023. The patient denies pain. COMPARISON: Pelvic ultrasound 09/22/2023 TECHNIQUE: Ultrasound of the pelvis is performed using both transabdominal and transvaginal transducers along with Doppler. Transvaginal imaging is performed due to inadequate visualization transabdominally. FINDINGS: The uterus measures 8.3 x 4.2 x 6.0 cm. No discrete fibroids are appreciated. Endometrial thickness is 8 mm. Endometrium appears heterogeneous. Limited visualization due to bowel gas and body habitus. No significant free fluid. Uterine configuration raises the possibility of a congenital anomaly such as an arcuate uterus. Left ovary measures 5.2 x 3.4 x 3.8 cm, volume 35.7 mL. Complex left ovarian cyst measures 2.2 x 1.9 x 1.8 cm and is thick walled, possibly a corpus luteum. Right ovary measures 4.5 x 2.6 x 2.7 cm, volume 15.9 mL. Multiple small cysts characteristic of follicles measuring up to 1.0 cm. There is no indication for follow-up imaging. Redemonstration of tubular thick-walled structure in the left adnexa measuring up to 1.3 cm, again concerning for hydrosalpinx. US/US pelvic and transvaginal IMPRESSION: Redemonstration of tubular thick-walled structure in the left adnexa measuring up to 1.3 cm, again concerning for hydrosalpinx.
== END 2023-12-30 15:24 | disposition home or self-care (01) ==
LOC: HO.HMGCX 15:23
PROVIDERS: PCP Pediatrics; Visit Provider Advanced Practice Midwife
DX: N70.11 Chronic salpingitis (principal)
CPT/HCPCS: 76830; 76856

== ENCOUNTER 2024-01-12 08:20 | Outpatient (REF) | payer OTHER, SELFPAY ==
[2024-01-13 16:12] LABS: BV Int Neg Control Negative (Negative); BV Int Pos Control Positive (Positive)
== END 2024-01-12 08:21 | disposition home or self-care (01) ==
LOC: HO.LAB 08:20
PROVIDERS: PCP Pediatrics; Visit Provider Advanced Practice Midwife
DX: N89.8 Other specified noninflammatory disorders of vagina (principal); N83.299 Other ovarian cyst, unspecified side
CPT/HCPCS: 87480; 87510; 87660; 99212

== ENCOUNTER 2024-01-12 08:20 | Outpatient (AMB) | payer OTHER, SELFPAY ==
--- NOTE | 2024-01-12 08:53 | MHC.OFFVIS ---
Intake Vital Signs 01/12/24 08:55 Height 5 ft 3 in Weight 140 lb BMI 24.8 BP 92/62 Intake Visit Reasons: Ultra sound follow up Intake Note: pt c/o vag itching Broadcast Journalist: Broadcast Journalist Present (Maria E) Allergies No Known Allergies Allergy (Verified 01/12/24 08:54) Is last menstrual period known: Yes Last menstrual period: 12/20/23 HPI HPI Comments History of Present Illness Details Patient is here today for a follow up ultrasound. She has a history of hydrosalpinx treated. Today she reports vaginal irritation a month ago following her cycle, and then one other separate occasion where she was irritated with some redness. She denies any pelvic pain. [facility] Medical History Cyst of left breast Breast pain Frequency of urination Pelvic pain Hemorrhagic cyst of right ovary HSV-2 (herpes simplex virus 2) infection Benign breast cyst in female Surgical History H/O ovarian cystectomy Hx of tubal ligation Family History Maternal Aunt History of breast cancer Paternal Aunt History of breast cancer Social History Alcohol intake: never Patient Tobacco Use Status: Never used Tobacco Sexual orientation: Straight/Heterosexual Gender identity: Female Female Reproductive History Menstrual Age of Menarche: 9 Date of last menstrual period: 12/20/23 Review of Systems Const All systems reviewed & are unremarkable except as noted in HPI and below Physical Exam Vital Signs: Last Vital Signs BP 92/62 01/12/24 08:55 BMI result Body Mass Index 24.8 Const General: cooperative, healthy appearing and no acute distress Orientation/consciousness: patient oriented x3 GI Inspection: Yes normal to inspection Palpation (GI): Soft to palpation and Other GI palpation findings present (Nontender) Rectal Exam - Female: visual inspection normal General: Yes bladder normal to palpation External Female Exam: normal appearance of the urethra Speculum Exam - Vagina: normal appearance of the vagina, normal palpation and vaginal bleeding Speculum Exam - Cervix: normal appearance of the cervix and normal palpation Bimanual exam- vagina & uterus: normal bimanual exam, normal palpation, uterine size normal, bladder normal to palpation, normal palpation, uterine shape normal and non-tender Bimanual Exam- Adnexa, other: normal adnexae OB/external & speculum: vaginal bleeding Neuro General: patient oriented x3 Results Reviewed Results Reviewed: [facility] [address] [place] [place] [place] [address] Ultrasound Report Signed Patient: Brittani Lin MR#: [id number] : 1980 Acct:[id number] Age/Sex: 43 / F ADM Date: 12/30/23 Loc: HO.HMGCX Attending Dr: Erin Martinez CNM Ordering Physician: Erin Martinez CNM Date of Service: 12/30/23 Procedure(s): US pelvic and transvaginal Accession Number(s): [id number] cc: Laure Salvador MD; Erin Martinez CNM~ EXAMINATION: US PELVIS WITH TRANSVAGINAL CLINICAL INFORMATION: Chronic salpingitis, last menstrual period 12/24/2023. The patient denies pain. COMPARISON: Pelvic ultrasound 09/22/2023 TECHNIQUE: Ultrasound of the pelvis is performed using both transabdominal and transvaginal transducers along with Doppler. Transvaginal imaging is performed due to inadequate visualization transabdominally. FINDINGS: The uterus measures 8.3 x 4.2 x 6.0 cm. No discrete fibroids are appreciated. Endometrial thickness is 8 mm. Endometrium appears heterogeneous. Limited visualization due to bowel gas and body habitus. No significant free fluid. Uterine configuration raises the possibility of a congenital anomaly such as an arcuate uterus. Left ovary measures 5.2 x 3.4 x 3.8 cm, volume 35.7 mL. Complex left ovarian cyst measures 2.2 x 1.9 x 1.8 cm and is thick walled, possibly a corpus luteum. Right ovary measures 4.5 x 2.6 x 2.7 cm, volume 15.9 mL. Multiple small cysts characteristic of follicles measuring up to 1.0 cm. There is no indication for follow-up imaging. Redemonstration of tubular thick-walled structure in the left adnexa measuring up to 1.3 cm, again concerning for hydrosalpinx. US/US pelvic and transvaginal IMPRESSION: Redemonstration of tubular thick-walled structure in the left adnexa measuring up to 1.3 cm, again concerning for hydrosalpinx. Dictated By: Karissa Jenkins MD Signed By: <Electronically signed by Karissa Jenkins MD in OV> 01/03/24 1323 DD/ 1555 TD/TT: Labor Trainer: Assessment & Plan Assessment & Plan (1) Complex ovarian cyst: Code(s): N83.299 - Other ovarian cyst, unspecified side Plan Discussed: Ultrasound findings with new small complex ovarian cyst most likely consistent per radiology impression as a corpus luteum cyst. Advised most cyst will resolve on their own plan an 8 week follow-up to check on the status. Advised to call if there is any pelvic pain. Ultrasound ordered in advised to follow up for test results in person. All of her questions and concerns were addressed to the best of my ability and shared decision making. She is agreeable to the plan of care. This note is constructed using voice recognition software. While every effort has been made to ensure accuracy, schedule manager errors may have been included. Orders: Orders Bacterial Vaginosis Panel Today N89.8 - Other specified noninflammatory disorders of vagina US pelvic and transvaginal Today N83.299 - Other ovarian cyst, unspecified side Coding Level of Care Code Est Pt Level 3 (57567) Diagnoses Complex ovarian cyst N83.299
[2024-01-12 08:55] VITALS: BP 92/62; BMI 24.8
== END 2024-01-12 09:12 | disposition home or self-care (01) ==
PROVIDERS: PCP Pediatrics; Visit Provider Advanced Practice Midwife
DX: N83.299 Other ovarian cyst, unspecified side (principal)
CPT/HCPCS: 99213

== ENCOUNTER 2024-01-23 10:39 | Outpatient (REF) | payer OTHER, SELFPAY ==
[2024-01-23 14:11] LABS: MANUAL DIFF FLAG NO
[2024-01-23 14:29] LABS: Appearance Urine Clear; Color Urine Yellow; Glucose Urine UA Negative (Negative); Leukocyte Esterase Urine Negative (Negative); Nitrite Urine Negative (Negative); Specific Gravity - Urine 1.025 (1.005-1.025); UMIC TRIGGER UACC YES; Urine Blood Moderate (2+) (Negative); Urine Ketones Negative (Negative); Urine Protein Negative (Neg-Trace)
[2024-01-23 14:30] LABS: Basophils Percent Auto 0.6 % (0-2); Eosinophils Absolute Auto 0.1 X10*3/uL (0.0-0.4); Eosinophils Percent Auto 2.3 % (0-4); Hematocrit 39.8 % (37.0-47.0); Hemoglobin 12.8 g/dl (12.0-16.0); Imm Gran Abs Auto 0.01 X10*3/uL (0.00-0.03); Imm Gran Pct Auto 0.2 % (0.0-0.4); Lymphocytes Absolute Auto 2.1 X10*3/uL (1.2-4.9); Mean Corpuscular HGB Conc 32.2 g/dl (31.0-35.0); Mean Corpuscular Hemoglobin 28.3 pg (27.0-33.0); Mean Corpuscular Volume 87.9 fL (80.0-98.0); Mean Platelet Volume 10.5 fL (9.4-12.3); Monocytes Absolute Auto 0.4 X10*3/uL (0.1-1.2); Monocytes Percent Auto 8.2 % (2-11); Neutrophils Absolute Auto 2.2 x10*3/uL (2.0-8.3); Neutrophils Percent Auto 45.7 % (45-73); Platelet Count 351 X10*3/uL (160-400); Red Blood Count 4.53 X10*6/uL (4.20-5.50); Red Cell Distribution Width 13.7 % (11.0-16.0); White Blood Count 4.8 X10*3/uL (4.8-10.8)
[2024-01-23 14:40] LABS: Bacteria Urine None Seen (None Seen); Hyaline Casts Urine 0-2 /LPF (0-2); WBC Urine 0-5 /HPF (0-5)
[2024-01-23 15:02] LABS: Alanine Aminotransferase 10 U/L (0-31); Albumin Level 4.3 g/dL (3.5-5.0); Alkaline Phosphatase 48 U/L (39-117); Anion Gap 10 (12-20); Aspartate Amino Transferase 13 U/L (5-31); Bilirubin Total 0.7 mg/dL (0.0-1.0); Blood Urea Nitrogen 20 mg/dL (9-16); Calcium 9.3 mg/dL (8.4-10.2); Carbon Dioxide 26 mmol/L (22-29); Chloride 107 mmol/L (96-108); Cholesterol 247 mg/dL (<200); Estimated Glomerular Filt Rate > 60; Glucose Random 71 mg/dL (60-115); HDL Cholesterol 100 mg/dL (>40); LDL Cholesterol Calculated 137 mg/dL (<100); Potassium 4.1 mmol/L (3.3-5.1); Sodium 139 mmol/L (135-145); Total Protein 7.7 g/dL (6.5-8.0); Triglycerides 52 mg/dL (<150)
[2024-01-23 15:20] LABS: TSH reflex Free T4 2.15 uIU/mL (0.32-4.0); Vitamin D 25-OH Total 19.4 ng/mL (>30)
[2024-01-23 15:30] LABS: Folate 13.3 ng/mL (> or = 4.0); Vitamin B12 753 pg/mL (200-900)
== END 2024-01-23 10:40 | disposition home or self-care (01) ==
LOC: HO.CHCLDS 10:39
PROVIDERS: Visit Provider Pediatrics
DX: D64.9 Anemia, unspecified (principal)
CPT/HCPCS: 36415; 80053; 80061; 81001; 82306; 82607; 82746; 84443; 85025

== ENCOUNTER → 2024-03-08 13:55 | Outpatient (BNVA) | payer OTHER, SELFPAY | PROVIDERS: PCP Pediatrics; Visit Provider Physician Assistant | DX: Z01.818 Encounter for other preprocedural examination (principal); R00.1 Bradycardia, unspecified | CPT/HCPCS: 99202 ==

== ENCOUNTER 2024-03-08 13:56 | Outpatient (AMB) | payer OTHER, SELFPAY ==
--- NOTE | 2024-03-08 14:14 | A.OFFVIS_ITS ---
Vital Signs 03/08/24 14:15 Height 5 ft 3 in Weight 138 lb 14.259 oz BMI 24.6 BP 106/51 L Blood Pressure Location Lt brachial Position Sitting Pulse 36 L Intake Visit Reasons: colonoscopy Screening Intake Note: Brittani presents in the office as a new patient for a colonoscopy screening. CC: No concerns today. 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 She has no respiratory or cardiac issues No nausea, vomiting, hematemesis, hematochezia fever or chills PFSH Medical History (Updated 03/08/24 @ 15:22 by Farzana Ramirez PA-C) Cyst of left breast Breast pain Frequency of urination Pelvic pain Hemorrhagic cyst of right ovary HSV-2 (herpes simplex virus 2) infection Benign breast cyst in female Surgical History H/O ovarian cystectomy Hx of tubal ligation Family History Maternal Aunt History of breast cancer Paternal Aunt History of breast cancer Social History Alcohol intake: never Patient Tobacco Use Status: Never used Tobacco Sexual orientation: Straight/Heterosexual Gender identity: Female Female Reproductive History Menstrual Age of Menarche: 9 Review of Systems Const All systems reviewed & are unremarkable except as noted in HPI and below Denies chills, Reports fatigue and Denies fever(s) Card Denies chest pain and Denies dyspnea Resp Denies dyspnea GI Denies abdominal pain, Denies change in bowel habits, Denies nausea and Denies vomiting Psych Denies anxiety Endo Reports fatigue Physical Exam Vital Signs: Last Vital Signs Pulse 36 L 03/08/24 14:15 BP 106/51 L 03/08/24 14:15 BMI result Body Mass Index 24.6 Const General: cooperative, healthy appearing, comfortable and no acute distress Orientation/consciousness: patient oriented x3 Limitations: no limitations Eyes Sclerae: sclerae normal Cardio Rate: bradycardic () Rhythm: abnormal rhythm (?pvc) GI Palpation (GI): Soft to palpation and nontender Auscultation: normal bowel sounds Skin General skin exam: no rashes or lesions noted Neuro General: patient oriented x3 Extrem General: Yes full ROM Psych Appearance: grossly normal and well kempt Mental Status: mental status grossly normal Speech and movement: Normal speech and movement present and Clear speech present Affect: normal affect Attitude: cooperative Thought process: Normal thought process present Thought content: Normal thought content present Insight: Good insight present (Psych) Judgement: Good judgement present (Psych) Assessment & Plan Assessment & Plan (1) Bradycardia: Comment: EKG- Vent 62, sinus arrhythmia Code(s): R00.1 - Bradycardia, unspecified Category: Medical Plan: EKG-Reviewed by cardiology- (2) Encounter for screening colonoscopy: Comment: No GI complaints-however got EKG for bradycardia-she did became somewhat nervous certainly understand-complaints of fatigue Code(s): Z12.11 - Encounter for screening for malignant neoplasm of colon Category: Medical Plan: Hold off on [id number] PCP certainly for reassurance Plan Follow-up PCP fatigue, Will see her back to discuss screening colonoscopy Orders: Orders Colonoscopy - GI Use Only Today Z12.11 - Encounter for screening for malignant neoplasm of colon AMB EKG-In Office Today R00.1 - Bradycardia, unspecified Patient Instructions: Very pleasant 43-year-old female referred for index screening colonoscopy Will hold off on scheduling procedure she has no GI complaints at this time F/U Horacio Jeong- for reassurance and she may send her back-patient receptive, agreeable Call with any questions or concerns Coding Level of Care Code New Pt Level 4 (82710) Diagnoses Bradycardia R00.1 Encounter for screening colonoscopy Z12.11 Time Spent (min) 40
[2024-03-08 14:15] VITALS: BP 106/51; PULSE 36; BMI 24.6
== END 2024-03-08 16:54 | disposition home or self-care (01) ==
PROVIDERS: PCP Pediatrics; Referring Provider Pediatrics; Visit Provider Physician Assistant
DX: R00.1 Bradycardia, unspecified (principal); Z12.11 Encounter for screening for malignant neoplasm of colon
CPT/HCPCS: 99204

== ENCOUNTER 2024-03-14 15:49 | Outpatient (REF) | payer OTHER, SELFPAY ==
--- NOTE | ~2024-03-14 | US_ITS ---
EXAMINATION: US PELVIS CLINICAL INFORMATION: Ovarian cyst follow-up. COMPARISON: Pelvic ultrasound 12/30/2023. TECHNIQUE: Ultrasound of the pelvis is performed using both transabdominal and transvaginal transducers along with Doppler. Transvaginal imaging is performed due to inadequate visualization transabdominally. FINDINGS: Uterus: The uterus is anteverted and measures 0.4 x 4.2 x 6.5 cm. The uterus appears normal. The double wall endometrial thickness is 11 mm. Adnexa: The right ovary measures 3.5 x 2.3 x 3.1 cm, volume 13.1 mL. A new 2.3 cm corpus luteal cyst is seen. No follow-up imaging is recommended. The left ovary measures 3.1 x 2.3 x 1.8 cm, volume 6.7 mL. The left ovary appears normal. Previously seen corpus luteal cyst has resolved. Left hydrosalpinx measuring 9 mm in diameter. No free fluid. US/US pelvic and transvaginal IMPRESSION: Left hydrosalpinx measuring 9 mm in diameter.
== END 2024-03-14 15:50 | disposition home or self-care (01) ==
LOC: HO.US 15:49
PROVIDERS: PCP Pediatrics; Visit Provider Advanced Practice Midwife
DX: N83.299 Other ovarian cyst, unspecified side (principal)
CPT/HCPCS: 76830; 76856

== ENCOUNTER 2024-03-15 15:50 | Outpatient (REF) | payer OTHER, SELFPAY ==
[2024-03-15 18:28] LABS: Erythrocyte Sedimentation Rate 8 MM/HR (0-20)
[2024-03-16 18:29] LABS: Lyme Abs Screen <0.90 index
[2024-03-18 07:43] LABS: Anti Nuclear Antibody Screen NEGATIVE (NEGATIVE)
== END 2024-03-15 15:51 | disposition home or self-care (01) ==
LOC: HO.CHCLDS 15:50
PROVIDERS: Visit Provider Pediatrics
DX: R00.1 Bradycardia, unspecified (principal)
CPT/HCPCS: 36415; 85652; 86038; 86617; 86618

== ENCOUNTER 2024-03-27 14:04 | Outpatient (AMB) | payer OTHER, SELFPAY ==
[2024-03-27 14:06] VITALS: BP 98/52; PULSE 73; O2SAT 99; BMI 25.9
--- NOTE | 2024-03-27 14:06 | MHC.OFFVIS ---
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 She was apparently at another office where the heart rate has been recorded 37/Min. Patient herself does not have any known cardiac issues. No history of any coronary artery disease or myocardial infarction or arrhythmias or in fact anything of cardiac nature. She is fairly healthy with no limitations. No cardiac symptoms. [facility] Medical History Cyst of left breast Breast pain Frequency of urination Pelvic pain Hemorrhagic cyst of right ovary HSV-2 (herpes simplex virus 2) infection Benign breast cyst in female Surgical History H/O ovarian cystectomy Hx of tubal ligation Family History Maternal Aunt History of breast cancer Paternal Aunt History of breast cancer Social History Alcohol intake: never Patient Tobacco Use Status: Never used Tobacco Sexual orientation: Straight/Heterosexual Gender identity: Female Female Reproductive History Menstrual Age of Menarche: 9 Review of Systems Const Denies chills, Denies fatigue, Denies fever(s), Denies frequent falls, Denies weakness, Denies weight gain and Denies weight loss ENT Denies dizziness Card Denies chest pain, Denies leg edema, Denies lightheadedness, Denies palpitations, Denies dyspnea, Denies dyspnea on exertion and Denies orthopnea Resp Denies cough, Denies dyspnea and Denies dyspnea on exertion GI Denies bloating and Denies change in bowel habits Musc Denies muscle weakness, Denies numbness and Denies tingling Neuro Denies dizziness, Denies frequent falls, Denies numbness, Denies tingling and Denies weakness Endo Denies fatigue and Denies palpitations Physical Exam Vital Signs: Last Vital Signs Pulse 73 03/27/24 14:06 BP 98/52 L 03/27/24 14:06 Pulse Ox 99 03/27/24 14:06 BMI result Body Mass Index 25.9 Const General: comfortable and no acute distress Orientation/consciousness: patient oriented x3 HEENT Other: Unremarkable Head: Yes normal to inspection Neck Neck: Yes normal visual inspection Chest Chest palpation & inspection: normal inspection of the chest Resp Auscultation: clear to auscultation bilaterally Cardio Palpation: normal PMI Heart sounds: S1 normal heart sound present, S2 normal heart sound present, no gallops, no murmurs and no rubs GI Palpation (GI): Soft to palpation Back/Spine/Pelvis Other: unremarkable Skin General skin exam: no rashes or lesions noted Neuro General: patient oriented x3 Extrem General: Yes normal to inspection Psych Mental Status: mental status grossly normal Assessment & Plan Assessment & Plan (1) Bradycardia: Code(s): R00.1 - Bradycardia, unspecified Category: Medical Plan In the recent EKG, underlying rhythm is sinus at 62/Min with sinus arrhythmia and otherwise unremarkable. On auscultation, possibly some intermittent PVCs or PACs, but otherwise unremarkable. Regarding question of bradycardia, we can obtain a Holter monitor for further evaluation. Echocardiogram for cardiac function. Further plan based on the above. Orders: Orders CA echo transthoracic complete Today R00.1 - Bradycardia, unspecified ECG 3 day holter monitor Today R00.1 - Bradycardia, unspecified Coding Level of Care Code New Pt Level 3 (11775) Diagnoses Bradycardia R00.1
== END 2024-03-27 14:27 | disposition home or self-care (01) ==
PROVIDERS: PCP Pediatrics; Referring Provider Pediatrics; Visit Provider Internal Medicine
DX: R00.1 Bradycardia, unspecified (principal)
CPT/HCPCS: 99203

== ENCOUNTER → 2024-03-27 14:04 | Outpatient (BNVA) | payer OTHER, SELFPAY | PROVIDERS: PCP Pediatrics; Visit Provider Internal Medicine | DX: R00.1 Bradycardia, unspecified (principal) | CPT/HCPCS: 99202 ==

== ENCOUNTER 2024-04-13 07:47 | Outpatient (REF) | payer OTHER, SELFPAY ==
[2024-04-19 01:39] LABS: HPV mRNA E6/E7 rflx Not Detected (Not Detected)
== END 2024-04-13 07:48 | disposition home or self-care (01) ==
LOC: HO.LNP 07:47
PROVIDERS: Visit Provider Advanced Practice Midwife
DX: Z01.419 Encounter for gynecological examination (general) (routine) without abnormal findings (principal); N70.11 Chronic salpingitis; R68.82 Decreased libido; Z71.2 Person consulting for explanation of examination or test findings
CPT/HCPCS: 87624; 88142; 99396

== ENCOUNTER 2024-04-13 07:47 | Outpatient (AMB) | payer OTHER, SELFPAY ==
[2024-04-13 07:46] VITALS: BP 108/60; BMI 25.8
--- NOTE | 2024-04-13 07:46 | MHC.OFFVIS ---
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 Doing well with concerns: Decreased libido for the last 2 months, and feels exhausted. History of vitamin-D deficiency, taking supplementation. History of left hydrosalpinx, currently not having any discomfort. 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 Regular monthly menses. Currently is sexually active. She denies vaginal itching and irritation. STI screening offered; she declined. Denies family history of ovarian or colon cancer. Family history of breast cancer. Last pap smear 2018, negative. Mammogram: Up-to-date. [facility] Medical History Cyst of left breast Breast pain Frequency of urination Pelvic pain Hemorrhagic cyst of right ovary HSV-2 (herpes simplex virus 2) infection Benign breast cyst in female Surgical History H/O ovarian cystectomy Hx of tubal ligation Family History (Updated 04/13/24 @ 07:52 by Alma Joseph CMA) Maternal Aunt History of breast cancer Paternal Aunt History of breast cancer Mother HTN (hypertension) Social History (Updated 04/13/24 @ 07:52 by Alma Joseph CMA) Household Members: Spouse and Children Housing: House Alcohol intake: never Patient Tobacco Use Status: Never used Tobacco Current occupational status: employed 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 Sexual orientation: Straight/Heterosexual Gender identity: Female Female Reproductive History Menstrual Age of Menarche: 9 Date of last menstrual period: 03/31/24 control method: permanent sterilization Total pregnancies: 2 Full term: 2 Number of Living Children: 2 Date of last pap smear: 09/29/23 Review of Systems Const All systems reviewed & are unremarkable except as noted in HPI and below Reports as per HPI Eyes Reports no additional complaints ENT Reports no additional complaints Card Reports no additional complaints Resp Reports no additional complaints GI Reports as per HPI and Reports no additional complaints Reports as per HPI Musc Reports no additional complaints Skin/Breast Reports as per HPI Neuro Reports no additional complaints Psych Reports no additional complaints Endo Reports no additional complaints Terrance/Lymph Reports no additional complaints Aller/Immun Reports no additional complaints Physical Exam Vital Signs: BMI result Body Mass Index 25.8 Const General: cooperative, healthy appearing, no acute distress, well developed and alert Orientation/consciousness: patient oriented x3 HEENT Head: Yes normal to inspection Eyes General: appearance normal, both eyes and all related structures Neck Neck: Yes normal visual inspection Thyroid: Thyroid normal Chest Chest palpation & inspection: normal inspection of the chest and other (no puckering, dimpling, peau de orange, retraction, discharge, masses) Breast/axilla inspection: normal inspection of the breasts Breast/axilla palpation: normal palpation of the breasts Resp Effort & Inspection: normal respiratory effort GI Inspection: Yes normal to inspection Palpation (GI): Soft to palpation Rectal Exam - Female: deferred General: Yes bladder normal to palpation External Female Exam: normal external appearance and normal appearance of the urethra Speculum Exam - Vagina: normal appearance of the vagina, normal palpation and normal vaginal discharge Speculum Exam - Cervix: normal appearance of the cervix, normal palpation and Other cervical findings present (Bled slightly with Pap) Bimanual exam- vagina & uterus: normal bimanual exam, normal palpation, uterine size normal, bladder normal to palpation, normal palpation and non-tender Bimanual Exam- Adnexa, other: no masses Skin General skin exam: no rashes or lesions noted Rashes: no rashes Neuro General: patient oriented x3 Cognition (Neuro): normal cognition Extrem General: Yes normal to inspection Psych Attitude: cooperative Thought process: Normal thought process present Results Reviewed Results Reviewed: [address] [address] Ultrasound Report Signed Patient: Brittani Lin MR#: [id number] : 1980 Acct:[id number] Age/Sex: 43 / F ADM Date: 03/14/24 Loc: . Attending Dr: Erin Martinez [facility] Ordering Physician: Erin Martinez CNM Date of Service: 03/14/24 Procedure(s): US pelvic and transvaginal Accession Number(s): [id number] cc: Laure Salvador MD; Erin Martinez CNM~ EXAMINATION: US PELVIS CLINICAL INFORMATION: Ovarian cyst follow-up. COMPARISON: Pelvic ultrasound 12/30/2023. TECHNIQUE: Ultrasound of the pelvis is performed using both transabdominal and transvaginal transducers along with Doppler. Transvaginal imaging is performed due to inadequate visualization transabdominally. FINDINGS: Uterus: The uterus is anteverted and measures 0.4 x 4.2 x 6.5 cm. The uterus appears normal. The double wall endometrial thickness is 11 mm. Adnexa: The right ovary measures 3.5 x 2.3 x 3.1 cm, volume 13.1 mL. A new 2.3 cm corpus luteal cyst is seen. No follow-up imaging is recommended. The left ovary measures 3.1 x 2.3 x 1.8 cm, volume 6.7 mL. The left ovary appears normal. Previously seen corpus luteal cyst has resolved. Left hydrosalpinx measuring 9 mm in diameter. No free fluid. US/US pelvic and transvaginal IMPRESSION: Left hydrosalpinx measuring 9 mm in diameter. 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 Pap smear obtained today. Breast awareness and periodic breast exams. Maintain a healthy lifestyle including a well balanced diet and routine exercise. Importance of continued vitamin-D therapy. Mammogram yearly. Libido concerns, which appear to be mostly related to exhaustion and time constraints, self-help measures and self-care. Communicating her concerns with her partner and family members to help support her. Follow up p.r.n. to discuss at future visit if needed. Monitor menstrual cycle and report any abnormal changes. Ultrasound findings: Left hydrosalpinx, currently not uncomfortable, instructed if experiencing pain to report to the office for further evaluation and treatment, and long-term planning. Patient verbalizes understanding and agrees to the plan of care. She was given opportunity to ask questions and all questions were answered to the best of my ability. RTO in one year for annual engineering model maker examination. This note is constructed using voice recognition software. While every effort has been made to ensure accuracy, blow torch operator errors may have been included. Orders: Orders MM tomosynthesis screening BI Today Z12.31 - Encounter for screening mammogram for malignant neoplasm of breast Pap Smear Today Z01.419 - Encounter for gynecological examination (general) (routine) without abnormal findings Coding Level of Care Code Est Pt Prev Care 40-64y(99046) Diagnoses Encounter for well woman exam with routine gynecological exam Z01.419 Encounter to discuss test results Z71.2 Hydrosalpinx N70.11 Decreased libido R68.82
== END 2024-04-13 08:26 | disposition home or self-care (01) ==
PROVIDERS: PCP Pediatrics; Visit Provider Advanced Practice Midwife
DX: Z01.419 Encounter for gynecological examination (general) (routine) without abnormal findings (principal); Z71.2 Person consulting for explanation of examination or test findings; N70.11 Chronic salpingitis; R68.82 Decreased libido
CPT/HCPCS: 99396

== ENCOUNTER → 2024-04-23 13:39 | Outpatient (REF) | payer OTHER, SELFPAY ==
--- NOTE | 2024-04-23 13:43 | HM_ITS ---
* Total monitoring time 2 days. * Underlying rhythm is sinus with an average rate of 70/Min. * Frequent ventricular ectopy with a burden of 4.3%. Evidence of bigeminy and trigeminy. * Patient markers used in association with sinus rhythm and PVCs. * 'Beating fast' in patient diary associated with ventricular ectopy. Chest pain associated with sinus rhythm. MTDD
--- NOTE | 2024-04-23 13:43 | CA_ITS ---
Transthoracic Echocardiogram Patient (Last, First, Middle): Brittani Lin L Gender: Female Date of : 1980 Age: 43 Procedure Date: 04/23/2024 Procedure Type: Transthoracic Echocardiogram Location: OP Height: 160.02 cm Weight: 65.77 kg BSA: 1.69 m2 Heart Rate: 64 bpm BP: 100 / 60 mmHg Lean Leader: DEBRA Referring MD: Tramaine Birch MD Symptoms: R00.1 - Bradycardia, unspecified Study Quality: Adequate ECG Rhythm: Sinus Conclusions: - The left ventricular systolic function is normal. The calculated ejection fraction is 64% by biplane method. - No obvious valvular pathology seen on this study. Findings Left Ventricle Normal left ventricular cavity size. There is normal left ventricular wall thickness. The left ventricular systolic function is normal. The calculated ejection fraction is 64% by biplane method. There is no evidence of regional wall motion abnormalities. Diastolic function is normal for age. LV peak GLS -22.2%. Right Ventricle Normal right ventricular cavity size and systolic function. Atria Both atria are normal in size. Aortic Valve There is a normal trileaflet aortic valve. There is no aortic valve stenosis. There is no aortic valve regurgitation. Mitral Valve The mitral valve appears normal. There is trace mitral valve regurgitation. There is no mitral valve stenosis. Pulmonic Valve The pulmonic valve was not well visualized. Tricuspid Valve There is trace tricuspid valve regurgitation. There is no evidence of pulmonary hypertension. Great Vessels The asc aorta is normal in size. Venous The inferior vena cava is mildly dilated and collapses greater than 50% with inspiration. Pericardium/Pleural There is no evidence of pericardial effusion. Prior Study Comparison No prior study available for comparison. Recommendations, Care & Conclusions No obvious valvular pathology seen on this study. Measurements 2D Linear Measurements IVSd: 0.80 0.6-0.9/0.6-1.0 cm LVIDd: 4.90 3.9-5.3/4.2-5.9 cm LVIDd Index: 2.90 2.4-3.2/2.2-3.1 cm/m2 LVIDs: 2.89 2.0-3.6 cm LVPWd: 0.93 0.7-1.1 cm LA Diam: 3.80 2.7-3.8/3.0-4.0 cm LAIDs Index: 2.25 1.5-2.3 cm/m2 LV Mass: 180.60 67-162/88-224 g LV Mass Index: 106.86 43-95/49-115 g/m2 LVOT Diam: 1.90 3.0+(-)1.3 cm 2D Systolic Function EF 4C: 60.60 >55% EF 2C: 66.90 >55% EF BiP: 64.00 >55% Mitral Valve MV Pk E: 0.85 MV PK A: 0.58 MV Decel Time: 224.00 E/A: 1.50 E'Lateral: 11.10 E'Medial: 11.40 E/E' Med: 7.40 E/E' Lat: 7.60 PHT: 66.00 MVA PHT: 3.33 Decel Stutsman: 3.79 Aortic Valve AoV Pk Charlie: 1.36 AoV Mn Charlie: 0.94 AoV VTI: 0.32 AoV Pk Grad: 7.00 Aov Mn Grad: 4.00 YARELI Cont.VTI: 2.33 LVOT LVOT Pk Charlie: 1.10 LVOT Mn Charlie: 0.76 LVOT VTI: 0.27 LVOT Pk Grad: 5.00 LVOT Mn Grad: 3.00 LVOT Diam: 1.90 LVOT Area: 2.84 Diastolic Function MV Pk E: 0.85 MV Pk A: 0.58 E/A: 1.50 E'Medial: 11.40 E/E' Med: 7.40 E' Laterial: 11.10 E/E' Lat: 7.60 Right Ventricle TAPSE (mm): 27.70 TVS' Charlie: 13.10 Tricuspid Valve TR Pk Charlie: 1.94 TR Pk Grad: 15.00 RA Press: 8.00 RVSP: 23.00 Great Vessels Aorta Sinus of Valsalva: 3.10 2.0-3.5 cm Ao Asc: 2.90 2.1-3.4 cm Pulmonary Valve PV Pk Charlie: 1.09 Peak PV Grad: 5.00 Updated in Other Vendor System with Status of Final Tramaine Birch MD electronically signed on 04/24/2024 10:46:20 AM with status of Final
== END ==
LOC: HO.CARD 13:39
PROVIDERS: PCP Pediatrics; Visit Provider Internal Medicine
DX: R00.1 Bradycardia, unspecified (principal)
CPT/HCPCS: 93242; 93306; 93356

== ENCOUNTER → 2024-04-23 13:43 | Outpatient (BNV) | payer OTHER, SELFPAY | PROVIDERS: PCP Pediatrics; Visit Provider Internal Medicine | DX: I49.3 Ventricular premature depolarization (principal) | CPT/HCPCS: 93227; 93306; 93356 ==

== ENCOUNTER 2024-10-23 15:52 | Outpatient (REF) | payer OTHER, SELFPAY ==
[2024-10-24 06:09] LABS: CT PCR NOT DETECTED (Not Detect.); NG PCR NOT DETECTED (Not Detect.)
[2024-10-24 11:45] LABS: Bacterial Vaginosis PCR NEGATIVE (Negative); Candida Group PCR DETECTED (Not Detect); Candida glab krusei PCR NOT DETECTED (Not Detect); Trichomonas vaginalis PCR NOT DETECTED (Not Detect)
== END 2024-10-23 15:53 | disposition home or self-care (01) ==
LOC: HO.LAB 15:52
PROVIDERS: Visit Provider Advanced Practice Midwife
DX: N89.8 Other specified noninflammatory disorders of vagina (principal); R10.2 Pelvic and perineal pain
CPT/HCPCS: 0352U; 87086; 87491; 87591

== ENCOUNTER 2024-10-23 15:52 | Outpatient (REF) | payer OTHER, SELFPAY | END 2024-10-23 15:53 | disposition home or self-care (01) | LOC: HO.LNP 15:52 | PROVIDERS: Visit Provider Advanced Practice Midwife | DX: Z13.89 Encounter for screening for other disorder (principal) ==

== ENCOUNTER 2024-10-23 16:04 | Outpatient (REF) | payer OTHER, SELFPAY | END 2024-10-23 16:05 | disposition home or self-care (01) | LOC: HO.MAMMO 16:04 | PROVIDERS: PCP Pediatrics; Visit Provider Advanced Practice Midwife | DX: N89.8 Other specified noninflammatory disorders of vagina (principal); R10.2 Pelvic and perineal pain | CPT/HCPCS: 81003; 99212 ==

== ENCOUNTER 2024-11-15 13:54 | Outpatient (REF) | payer OTHER, SELFPAY ==
--- NOTE | ~2024-11-15 | MM_ITS ---
EXAMINATION: MM DIAGNOSTIC DIGITAL BREAST TOMOSYNTHESIS, BILATERAL Limited left breast ultrasound. CLINICAL INFORMATION: Follow-up solid mass versus complicated cyst in the left breast at 3:00. COMPARISON: Mammography: Comparison is made with relevant prior exams. TECHNIQUE: Digital breast mammography with tomosynthesis is performed in both the craniocaudal and mediolateral oblique views along with computer-aided detection (CAD). Limited left breast ultrasound. FINDINGS: The breasts are extremely dense, which lowers the sensitivity of mammography (ACR BI-RADS breast composition Category d). Bilateral circumscribed oval masses which wax and wane consistent with benign fibrocystic changes and cysts. Some are demonstrated to be simple cyst on prior ultrasounds. No suspicious calcifications masses or other abnormal findings. Targeted color Doppler ultrasound in the left breast at 3:00 3 cm from nipple demonstrates a hypoechoic oval circumscribed solid mass versus complicated cyst measuring 8 x 6 x 4 mm which is not significantly changed from prior ultrasound dating back to 2020 and therefore benign. Results are discussed with the patient at time of visit. MM/MM tomosynthesis diagnostic BI IMPRESSION: Left: 1. Stable oval solid mass versus complicated cyst in the left breast at 3:00 not significantly changed on ultrasound dating back to 2020 and therefore benign. Right: Benign. ASSESSMENT: BI-RADS BI-RADS 2 - Benign Findings RECOMMENDATION: 1 year F/U This patient's information was entered into a reminder system with a target due date for their next mammogram. Electronically signed by: Skye Doan DO 11/15/2024 02:56 PM [facility]
== END 2024-11-15 13:55 | disposition home or self-care (01) ==
LOC: HO.MAMMO 13:54
PROVIDERS: PCP Pediatrics; Visit Provider Pediatrics
DX: Z12.31 Encounter for screening mammogram for malignant neoplasm of breast (principal); N60.22 Fibroadenosis of left breast
CPT/HCPCS: 76642; 77062; 77066

== ENCOUNTER → 2024-11-15 14:00 | Outpatient (BNV) | payer OTHER, SELFPAY | PROVIDERS: PCP Pediatrics; Visit Provider Internal Medicine | DX: N60.02 Solitary cyst of left breast (principal) | CPT/HCPCS: 76642; 77062; 77066 ==

== ENCOUNTER 2024-12-18 13:45 | Outpatient (REF) | payer OTHER, SELFPAY ==
[2024-12-19 08:42] LABS: Bacterial Vaginosis PCR NEGATIVE (Negative); Candida Group PCR NOT DETECTED (Not Detect); Candida glab krusei PCR NOT DETECTED (Not Detect); Trichomonas vaginalis PCR NOT DETECTED (Not Detect)
== END 2024-12-18 13:46 | disposition home or self-care (01) ==
LOC: HO.LAB 13:45
PROVIDERS: PCP Pediatrics; Visit Provider Advanced Practice Midwife
DX: R30.0 Dysuria (principal); R10.2 Pelvic and perineal pain; R31.29 Other microscopic hematuria; N60.02 Solitary cyst of left breast; N64.4 Mastodynia; N89.8 Other specified noninflammatory disorders of vagina
CPT/HCPCS: 81003; 81515; 87086; 99212

== ENCOUNTER 2024-12-18 13:45 | Outpatient (AMB) | payer OTHER, SELFPAY ==
--- NOTE | 2024-12-18 13:51 | A.OFFVIS_ITS ---
Intake Visit Reasons: vag inf/mammo results [employer] Commander: [employer] Commander Present (Maria E) Allergies No Known Allergies Allergy (Verified 12/18/24 13:52) HPI Comments Details: Patient is here today with concerns of vaginal irritation and burning with urination, chronic vaginal odor, yellow discharge, vulvar pruritus, additionally she wants to discuss recent to breast imaging ordered by her PCP. History of ovoid mass versus complex cyst, she reports occasional breast pain and itching over the breast. LMP November 25 for , as started bleeding again today feeling pelvic cramping. Has a history of hydrosalpinx. [facility] Medical History Cyst of left breast Breast pain Frequency of urination Pelvic pain Hemorrhagic cyst of right ovary HSV-2 (herpes simplex virus 2) infection Benign breast cyst in female Surgical History H/O ovarian cystectomy Hx of tubal ligation Family History (Updated 04/13/24 @ 07:52 by Alma Joseph CMA) Maternal Aunt History of breast cancer Paternal Aunt History of breast cancer Mother HTN (hypertension) Social History (Updated 04/13/24 @ 07:52 by Alma Joseph CMA) Household Members: Spouse and Children Housing: House Alcohol intake: never Patient Tobacco Use Status: Never used Tobacco Current occupational status: employed 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 Sexual orientation: Straight/Heterosexual Gender identity: Female Female Reproductive History Menstrual Age of Menarche: 9 Review of Systems Const All systems reviewed & are unremarkable except as noted in HPI and below Physical Exam Const General: cooperative, healthy appearing and no acute distress Orientation/consciousness: patient oriented x3 GI Inspection: Yes normal to inspection Palpation (GI): Soft to palpation and Other GI palpation findings present (Nontender) Rectal Exam - Female: visual inspection normal Other: External: Small labial fissure right side lower labia minora majora juncture General: Yes bladder normal to palpation External Female Exam: normal appearance of the urethra Speculum Exam - Vagina: normal palpation and vaginal bleeding (Red blood at the os) Speculum Exam - Cervix: normal appearance of the cervix and normal palpation Bimanual exam- vagina & uterus: normal bimanual exam, normal palpation, uterine size normal, bladder normal to palpation, normal palpation, uterine shape normal and non-tender Bimanual Exam- Adnexa, other: normal adnexae OB/external & speculum: vaginal bleeding (Red blood at the os) Neuro General: patient oriented x3 Results AMB Urinalysis, Automated UA Leukoctes 0 Chiqui/uL Last Edit by CHOCO Ng on 12/18/24 14:02 UA Nitrite Negative Last Edit by CHOCO Ng on 12/18/24 14:02 UA Urobilinogen 0 mg/dL Last Edit by CHOCO Ng on 12/18/24 14:0 2 UA Protein 0 mg/dL Last Edit by CHOCO Ng on 12/18/24 14:02 UA pH 5.5 Last Edit by CHOCO Ng on 12/18/24 14:02 UA Blood 3 Alcides/uL Last Edit by CHOCO Ng on 12/18/24 14:02 UA Specific [place] 1.020 Last Edit by CHOCO Ng on 12/18/24 14:02 UA Ketone Negative Last Edit by CHOCO Ng on 12/18/24 14:02 UA Bilirubin 0 mg/dL Last Edit by CHOCO Ng on 12/18/24 14:02 UA Glucose 0 mg/dL Last Edit by CHOCO Ng on 12/18/24 14:02 Results Reviewed Results Reviewed: Laboratory Last Values Urine pH (Auto) 5.5 12/18/24 13:55 Specific [place] (Auto) 1.020 12/18/24 13:55 Urine Protein (Auto) 0 mg/dL 12/18/24 13:55 Glucose (UA)(Auto) 0 mg/dL 12/18/24 13:55 Urine Ketones (Auto) Negative 12/18/24 13:55 Urine Blood (Auto) 3 Alcides/uL 12/18/24 13:55 Urine Nitrite (Auto) Negative 12/18/24 13:55 Urine Bilirubin (Auto) 0 mg/dL 12/18/24 13:55 Urine Urobilinogen (Auto) 0 mg/dL 12/18/24 13:55 Leukocyte Esterase (Auto) 0 Chiqui/uL 12/18/24 13:55 [facility] [address] [place] [address] Dr. King, [place] [id number] Ultrasound Report Signed Patient: Brittani Lin MR#: [id number] : 1980 Acct:[id number] Age/Sex: 44 / F ADM Date: 11/15/24 Loc: HO.MAMMO Attending Dr: Laure Salvador MD Ordering Physician: Laure Salvador MD Date of Service: 11/15/24 Procedure(s): US breast LT limited mamm only Accession Number(s): [id number] cc: Laure Salvador MD~ EXAMINATION: MM DIAGNOSTIC DIGITAL BREAST TOMOSYNTHESIS, BILATERAL Limited left breast ultrasound. CLINICAL INFORMATION: Follow-up solid mass versus complicated cyst in the left breast at 3:00. COMPARISON: Mammography: Comparison is made with relevant prior exams. TECHNIQUE: Digital breast mammography with tomosynthesis is performed in both the craniocaudal and mediolateral oblique views along with computer-aided detection (CAD). Limited left breast ultrasound. FINDINGS: The breasts are extremely dense, which lowers the sensitivity of mammography (ACR BI-RADS breast composition Category d). Bilateral circumscribed oval masses which wax and wane consistent with benign fibrocystic changes and cysts. Some are demonstrated to be simple cyst on prior ultrasounds. No suspicious calcifications masses or other abnormal findings. Targeted color Doppler ultrasound in the left breast at 3:00 3 cm from nipple demonstrates a hypoechoic oval circumscribed solid mass versus complicated cyst measuring 8 x 6 x 4 mm which is not significantly changed from prior ultrasound dating back to 2020 and therefore benign. Results are discussed with the patient at time of visit. US/US breast LT limited mamm only IMPRESSION: Left: 1. Stable oval solid mass versus complicated cyst in the left breast at 3:00 not significantly changed on ultrasound dating back to 2020 and therefore benign. Right: Benign. ASSESSMENT: BI-RADS BI-RADS 2 - Benign Findings RECOMMENDATION: 1 year F/U This patient's information was entered into a reminder system with a target due date for their next mammogram. Electronically signed by: Skye Doan DO 11/15/2024 02:56 PM [facility] Dictated By: Skye Doan DO Signed By: <Electronically signed by Skye Doan DO in OV> 11/15/24 1456 DD/ 1430 TD/TT: 11/15/24 1452 Field Test Engineer: Assessment & Plan Assessment & Plan (1) Breast pain: Comment: left breast Code(s): N64.4 - Mastodynia Category: Medical (2) Cyst of left breast: Code(s): N60.02 - Solitary cyst of left breast Category: Medical Plan: Patient discussed her concerns about the report and wanted to do some follow up. Agrees to have a breast consult with surgery and evaluation due to ongoing symptoms. Referral placed to breast surgeons. The patient expressed understanding and agreement with the plan of care. All of her questions and concerns were addressed to the best of my ability. (3) Pelvic pain: Code(s): R10.2 - Pelvic and perineal pain Category: Medical Plan Discussed workup for pelvic pain follow up for hydrosalpinx. BV culture obtained await results for plan of care. UA clean-catch culture sent, await results for plan of care. Advised to hydrate well. Follow up in person for test results. The patient expressed understanding and agreement with the plan of care. All of her questions and concerns were addressed to the best of my ability. This note is constructed using voice recognition software. While every effort has been made to ensure accuracy, branch specialist errors may have been included. Orders: Orders AMB Urinalysis Automated Today R30.0 - Dysuria US pelvic and transvaginal Today R10.2 - Pelvic and perineal pain Urine Culture Today N60.02 - Solitary cyst of left breast, N64.4 - Mastodynia, R30.0 - Dysuria, R31.29 - Other microscopic hematuria Bacterial Vaginosis Panel Today N89.8 - Other specified noninflammatory disorders of vagina Referrals Breast Surgery Referral N60.02 - Solitary cyst of left breast, N64.4 - Mastodynia Coding Level of Care Code Est Pt Level 3 (92847) Diagnoses Breast pain N64.4 Cyst of left breast N60.02 Pelvic pain R10.2
--- OUTSIDE RECORDS SUMMARY | 2024-12-18 13:55 | XMS_ITS | Clinical Summary ---
Author Organization [employer] Address [address] [facility] 7t [place] [address] Care Team Providers Care Assistant Activities Director Name Role Phone Laure Salvador MD Primary Care Provider [phone] Allergies No known active allergies Medications ergocalciferol (Vitamin D2) 1.25 MG (18120 UT) capsule Take 1 capsule (1.25 mg) by mouth 1 (one) time per week. 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 purified surface antigen ) 11/28/2012 Tdap 12/22/2017 Social History Tobacco Use Types Packs/Day Years Used Date Smoking Tobacco: Never Passive Smoke Exposure: Never Smokeless Tobacco: Never Tobacco Cessation:Counseling Given: Not Answered Depression Answer Date Recorded Patient Health Questionnaire-9 Score 0 01/19/2024 Patient Health Questionnaire-9 Score 0 01/19/2024 Last PHQ-9: Questionnaire Data Not on file 0 01/19/2024 Housing Stability Answer Date Recorded What is your housing situation today? I have adi seaman 01/19/[address] you li ve. Do you have problems with any of the following? None of the above 01/19/2024 Food Insecurity Answer Date Recorded Within the past 12 months, y ou worried that your food would run out before you got money to buy more: Never True 01/19/2024 Within the past 12 months,th e food you bought just didn't last and you didn't have enough money to get more: Never True 05/2024 Transportation Answer Date Recorded In the past 12 months, has l ack of transportation kept you from medical appts, meetings, work or from getting things needed for daily living? No 01/19/2024 Utilities Answer Date Recorded In the past 12 months, has t he electric, gas, oil or water company threatened to shut off services in your home? No 01/19/2024 Depression Answer Date Recorded Patient Health Questionnaire-2 Score 0 01/19/2024 Comments Unknown Sex and Gender Information Value Date Recorded Sex Assigned at Female 09/13/2022 10:17 AM EDT Legal Sex Female 10:17 AM EDT Gender Identity Female 09/13/2022 10:17 AM EDT Sexual Orientation Straight 09/13/2022 10 :17 AM EDT Last Filed Vital Signs Vital Sign Reading Time Taken Comments Blood Pressure 116/65 03/15/2024 3:18 PM EDT Pulse 66 03/15/2024 3:18 PM EDT Temperature 37.1 ??C (98.7 ??F) 03/15/2024 3:18 PM ED T Respiratory Rate 16 03/15/2024 3:18 PM EDT Oxygen Saturation 98% 03/15/2024 3:18 PM EDT Inhaled Oxygen Concentration - - Weight 65.3 kg (144 lb) 03/15/2024 3:18 PM EDT Height 165.1 cm (5' 5 ) 03/15/2024 3:18 PM EDT Body Mass Index 23.96 03/15/2024 3:18 PM EDT Plan of Treatment Upcoming Encounters Date Type Department Care Team (Late st Contact Info) Description 01/17/2025 9:00 AM EST Office Visit [facility] [address] [place], [place] [phone] Laure Salvador MD [address] [place] [address] Health Maintenance Due Date Last Done Comments CT Colonography 1978 Colonoscopy 1978 Colorectal Cancer Screening 1978 FIT DNA/Cologuard 1978 FIT 1978 FOBT 1978 HIV Screening 1978 Sigmoidoscopy 1978 Alcohol/Substance Use Screening 1990 Family Planning (PISQ) 1993 Hepatitis C Screening 1996 Hepatitis B Vaccines (1 of 3 - 19+ 3-dose series) 1997 COVID-19 Vaccine ( season) 2024 04/04/2021, 03/14/2021 Influenza Vaccine (#1) 2024 12/22/2017, 2012 Depression Screening 01/18/2025 01/19/2024, 01/19/20 24 SDOH Screening 01/18/2025 01/19/2024 Tobacco Screening 03/15/2025 03/15/2024 Cervical Cancer Screening 10/20/2026 HPV/Cotest 10/20/2026 10/20/2021 Pap Smear 10/20/2026 10/20/2021 Mammogram 11/15/2026 11/15/2024, 12/2024, 09/29/2023, Additional history exists DTaP/Tdap/Td Vaccines (2 - Td or Tdap) 12/22/2027 12/22/2017 Zoster Vaccines (1 of 2) 2028 RSV Patients and Patients Aged 60 years or older (1 - 1-dose 75+ series) 2053 HIB Vaccines Aged Out No longer eligi ble based on patient's age to complete this topic HPV Vaccines Aged Out No longer eligi ble based on patient's age to complete this topic Hepatitis A Vaccines Aged Out No long er eligible based on patient's age to complete this topic IPV Vaccines Aged Out No longer eligi ble based on patient's age to complete this topic Meningococcal Vaccine Aged Out No joselin ozzy eligible based on patient's age to complete this topic Pneumococcal Vaccine: Pediatrics (0 to 5 Years) and At-Risk Patients (6 to 49) Years) Aged Out No longer eligible based on patient's age to complete this topic RSV under 20 months Aged Out No longe r eligible based on patient's age to complete this topic Rotavirus Vaccines Aged Out No longer eligible based on patient's age to complete this topic Procedures Procedure Name Priority Date/Time Associated Diagnosis Comments BI US BREAST LIMITED LEFT Routine 11/15/2024 2:30 PM EST BI MAMMOGRAM DIAGNOSTIC TOMOSYNTHESIS BILATERAL Routine 11/15/2024 2:00 PM EST THINPREP IMAGING PAP AND HPV MRNA E6/E7, WITH CT/NG, TRICHOMONAS Routine 10/20/2021 4:29 PM EST from Last 3 Months or Most Recently Relevant to Health Maintenance Results * BI US Breast Limited Left (11/15/2024 2:30 PM EST) Anatomical Region Laterality Modality Breast Left Ultrasound 11/15/2024 2:30 PM EST Narrative 11/15/2024 2:58 PM EST ? [facility] ? [address] ?[place] [address] ? Ultrasound Report ? Signed ? Patient: Brittani Lin ?M ?? R#: [id number] ? : 1980 ?Acct:[id number] ? Age/Sex: 44 / F ?ADM Date: 11/15/24 ? Loc: HO.MAMMO ? Attending Dr: Laure Salvador MD ? Ordering Physician: Laure Salvador MD ?? Date of Service: 11/15/24 ?? Procedure(s): US breast LT limited mamm only ?? Accession Number(s): [id number] ? cc: aLure Salvador MD ? EXAMINATION: ?? MM DIAGNOSTIC DIGITAL BREAST TOMOSYNTHESIS, BILATERAL ?? Limited left breast ultrasound. ? CLINICAL INFORMATION: ? Follow-up solid mass versus complicated cyst in the left breast at ?? 3:00. ? COMPARISON: ?? Mammography: Comparison is made with relevant prior exams. ? TECHNIQUE: ?? Digital breast mammography with tomosynthesis is performed in both the ?? craniocaudal and mediolateral oblique views along with computer-aided ?? detection (CAD). ?? Limited left breast ultrasound. ? FINDINGS: ?? The breasts are extremely dense, which lowers the sensitivity of ?? mammography (ACR BI-RADS breast composition Category d). ?? Bilateral circumscribed oval masses which wax and wane consistent with ?? benign fibrocystic changes and cysts. Some are demonstrated to be ?? simple cyst on prior ultrasounds. ?? No suspicious calcifications masses or other abnormal findings. ? Targeted color Doppler ultrasound in the left breast at 3:00 3 cm from ?? nipple demonstrates a hypoechoic oval circumscribed solid mass versus ?? complicated cyst measuring 8 x 6 x 4 mm which is not significantly ?? changed from prior ultrasound dating back to 2020 and therefore benign. ? Results are discussed with the patient at time of visit. ? US/US breast LT limited mamm only ?? IMPRESSION: ?? Left: ?? 1. Stable oval solid mass versus complicated cyst in the left breast at ?? 3:00 not significantly changed on ultrasound dating back to 2020 and ?? therefore benign. ? Right: ?? Benign. ? ASSESSMENT: ? BI-RADS BI-RADS 2 - Benign Findings ? RECOMMENDATION: ?? 1 year F/U ? This patient's information was entered into a reminder system with a ?? target due date for their next mammogram. ? Electronically signed by: ??Skye Doan DO ??11/15/2024 02:56 PM EST ?? RP ? Dictated By: ?Skye Doan DO ? Signed By: ?<Electronically signed by Skye Doan, DO in OV> ? 11/15/24 1456 ? DD/ 1430 ? TD/TT: 11/15/241451 ? Games Dealer: ? Procedure Note Han, Image - 11/15/2024 [facility] [address] [place] [address] [place] [address] Ultrasound Report Signed Patient: Sosa Lima SantBrittani doshi JONATAN R#: [id number] : 1980Acct:[id number] Age/Sex: 44 / FADM Date: 11/15/24 Loc: HO.MAMMO Attending Dr: Laure Salvador MD Ordering Physician: Laure Salvador MD Date of Service: 11/15/24 Procedure(s): US breast LT limited mamm only Accession Number(s): [id number] cc: Laure Salvador MD EXAMINATION: MM DIAGNOSTIC DIGITAL BREAST TOMOSYNTHESIS, BILATERAL Limited left breast ultrasound. CLINICAL INFORMATION: Follow-up solid mass versus complicated cyst in the left breast at 3:00. COMPARISON: Mammography: Comparison is made with relevant prior exams. TECHNIQUE: Digital breast mammography with tomosynthesis is performed in both the craniocaudal and mediolateral oblique views along with computer-aided detection (CAD). Limited left breast ultrasound. FINDINGS: The breasts are extremely dense, which lowers the sensitivity of mammography (ACR BI-RADS breast composition Category d). Bilateral circumscribed oval masses which wax and wane consistent with benign fibrocystic changes and cysts. Some are demonstrated to be simple cyst on prior ultrasounds. No suspicious calcifications masses or other abnormal findings. Targeted color Doppler ultrasound in the left breast at 3:00 3 cm from nipple demonstrates a hypoechoic oval circumscribed solid mass versus complicated cyst measuring 8 x 6 x 4 mm which is not significantly changed from prior ultrasound dating back to 2020 and therefore benign. Results are discussed with the patient at time of visit. US/US breast LT limited mamm only IMPRESSION: Left: 1. Stable oval solid mass versus complicated cyst in the left breast at 3:00 not significantly changed on ultrasound dating back to 2020 and therefore benign. Right: Benign. ASSESSMENT: BI-RADS BI-RADS 2 - Benign Findings RECOMMENDATION: 1 year F/U This patient's information was entered into a reminder system with a target due date for their next mammogram. Electronically signed by: Skye Doan DO 11/15/2024 02:56 PM [facility] Dictated By: Skye Doan DO Signed By: <Electronically signed by Skye Doan DO in OV> 11/15/24 1456 DD/ 1430 TD/TT: 11/15/24 1452 Games Dealer: us Laure Salvador MD IMG US PROCEDURES Edited Resu lt - Final * BI Mammogram Diagnostic Tomosynthesis Bilateral (11/15/2024 2:00 PM EST) Anatomical Region Laterality Modality Breast Bilateral Mammography 11/15/2024 2:00 PM EST Narrative 11/15/2024 2:58 PM EST ? [facility] ? [address] ?[place] [address] ? Mammography Report ? Signed ? Patient: Brittani Lin L ?M ?? R#: [id number] ? : 1980 ?Acct:[id number] ? Age/Sex: 44 / F ?ADM Date: 11/15/24 ? Loc: HO.MAMMO ? Attending Dr: Laure Salvador MD ? Ordering Physician: Erin Martinez CNCristiano ?Results: 2Beni ?? gn Findings ? Date of Service: 11/15/24 ?Follow Up: 1 Year From Orig ?? inal Mammogram ? Procedure(s): MM tomosynthesis diagnostic BI ?? Accession Number(s): [id number] ? cc: Laure Salvador MD; Erin Martinez CNM ? EXAMINATION: ?? MM DIAGNOSTIC DIGITAL BREAST TOMOSYNTHESIS, BILATERAL ?? Limited left breast ultrasound. ? CLINICAL INFORMATION: ? Follow-up solid mass versus complicated cyst in the left breast at ?? 3:00. ? COMPARISON: ?? Mammography: Comparison is made with relevant prior exams. ? TECHNIQUE: ?? Digital breast mammography with tomosynthesis is performed in both the ?? craniocaudal and mediolateral oblique views along with computer-aided ?? detection (CAD). ?? Limited left breast ultrasound. ? FINDINGS: ?? The breasts are extremely dense, which lowers the sensitivity of ?? mammography (ACR BI-RADS breast composition Category d). ?? Bilateral circumscribed oval masses which wax and wane consistent with ?? benign fibrocystic changes and cysts. Some are demonstrated to be ?? simple cyst on prior ultrasounds. ?? No suspicious calcifications masses or other abnormal findings. ? Targeted color Doppler ultrasound in the left breast at 3:00 3 cm from ?? nipple demonstrates a hypoechoic oval circumscribed solid mass versus ?? complicated cyst measuring 8 x 6 x 4 mm which is not significantly ?? changed from prior ultrasound dating back to 2020 and therefore benign. ? Results are discussed with the patient at time of visit. ? MM/MM tomosynthesis diagnostic BI ?? IMPRESSION: ?? Left: ?? 1. Stable oval solid mass versus complicated cyst in the left breast at ?? 3:00 not significantly changed on ultrasound dating back to 2020 and ?? therefore benign. ? Right: ?? Benign. ? ASSESSMENT: ? BI-RADS BI-RADS 2 - Benign Findings ? RECOMMENDATION: ?? 1 year F/U ? This patient's information was entered into a reminder system with a ?? target due date for their next mammogram. ? Electronically signed by: ??Skye Doan DO ??11/15/2024 02:56 PM EST ?? RP ? Dictated By: ?Skye Doan DO ? Signed By: ?<Electronically signed by Skye Doan, DO in OV> ? 11/15/24 1456 ? DD/ 1400 ? TD/TT: 11/15/24 1430 ? Games Dealer: ? Procedure Note Han, Image - 11/15/2024 [facility] [address] [place] [address] [place] [address] Mammography Report Signed Patient: Brittani Lin R#: [id number] : 1980Acct:[id number] Age/Sex: 44 / FADM Date: 11/15/24 Loc: HO.MAMMO Attending Dr: Laure Salvador MD Ordering Physician: Erin MartinezMResults: 2Beni gn Findings Date of Service: 11/15/24Follow Up: 1 Year From Orig ina Mammogram Procedure(s): MM tomosynthesis diagnostic BI Accession Number(s): [id number] cc: Laure Salvador MD; Erin Martinez CNM EXAMINATION: MM DIAGNOSTIC DIGITAL BREAST TOMOSYNTHESIS, BILATERAL Limited left breast ultrasound. CLINICAL INFORMATION: Follow-up solid mass versus complicated cyst in the left breast at 3:00. COMPARISON: Mammography: Comparison is made with relevant prior exams. TECHNIQUE: Digital breast mammography with tomosynthesis is performed in both the craniocaudal and mediolateral oblique views along with computer-aided detection (CAD). Limited left breast ultrasound. FINDINGS: The breasts are extremely dense, which lowers the sensitivity of mammography (ACR BI-RADS breast composition Category d). Bilateral circumscribed oval masses which wax and wane consistent with benign fibrocystic changes and cysts. Some are demonstrated to be simple cyst on prior ultrasounds. No suspicious calcifications masses or other abnormal findings. Targeted color Doppler ultrasound in the left breast at 3:00 3 cm from nipple demonstrates a hypoechoic oval circumscribed solid mass versus complicated cyst measuring 8 x 6 x 4 mm which is not significantly changed from prior ultrasound dating back to 2020 and therefore benign. Results are discussed with the patient at time of visit. MM/MM tomosynthesis diagnostic BI IMPRESSION: Left: 1. Stable oval solid mass versus complicated cyst in the left breast at 3:00 not significantly changed on ultrasound dating back to 2020 and therefore benign. Right: Benign. ASSESSMENT: BI-RADS BI-RADS 2 - Benign Findings RECOMMENDATION: 1 year F/U This patient's information was entered into a reminder system with a target due date for their next mammogram. Electronically signed by: Skye Doan DO 11/15/2024 02:56 PM [facility] Dictated By: Skye Doan DO Signed By: <Electronically signed by Skye Doan DO in OV> 11/15/24 1456 DD/ 1400 TD/TT: 11/15/24 1430 Games Dealer: [facility] External Provider IMG BI PROCEDURES Edited Result - Final * THINPREP TIS PAP AND HPV mRNA E6/E7, CT/NG, TRICH (10/20/2021 4:29 PM EST) Chlamydia trachomatis RNA, TMA, Urogenital NOT DETECTED NOT DETECTED [facility] Clinical Information: Z113 Z124 [facility] COMMENT SEE COMMENT [facility] Comment: The analytical performance characteristics of this assay, when used to test SurePath(TM) specimens have been determined by [employer]. The modifications have not been cleared or approved by the FDA. This assay has been validated pursuant to the CLIA regulations and is used for clinical purposes. ?? For additional information, please refer to https://education.[employer]/faq/BFM083 (This link is being provided for information/ educational purposes only.) ?? COMMENT SEE COMMENT [facility] Comment: EXPLANATORY NOTE: ? The Pap is a screening test for cervical cancer. It is ?? not a diagnostic test and is subject to false negative ?? and false positive results. It is most reliable when a ?? satisfactory sample, regularly obtained, is submitted ?? with relevant clinical findings and history, and when ?? the Pap result is evaluated along with historic and ?? current clinical information. ?? COMMENT: This Pap test has been evaluated with computer assisted technology. [facility] Plastics Worker: SEE COMMENT [facility] Comment: ED, CT(ASCP) CT screening location: ?? [facility] ?? [address] [place] [address] ?? [place], [place] [address] HPV nRNA E6/E7 Not Detected Not Detected [facility] Comment: Methodology: Slipper Maker-Mediated Amplification This assay detects E6/E7 viral messenger RNA (mRNA) from 14 high-risk HPV types (16,18,31,33,35,39,45,51,52,56,58,59,66,68). ? The analytical performance characteristics of this assay have been determined by [employer]. The modifications have not been cleared or approved by the FDA. This assay has been validated pursuant to the CLIA regulations and is used for clinical purposes. ?? For additional information, please refer to http://[employer]/faq/NBD418u7 (This link if provided for information/ educational purposes only.) Interpretation/Re sult: Negative for intraepithelial lesion or malignancy. [facility] LMP: NONE GIVEN [facility] Neisseria gonorrhoeae RNA, TMA, Urogenital NOT DETECTED NOT DETECTED [facility] Prev. BX: NONE GIVEN [facility] Prev. PAP: NONE GIVEN [facility] SOURCE: Cervix [facility] Statement Of Adequacy: SEE COMMENT [facility] Comment: Satisfactory for evaluation. Endocervical/transformation zone component present. Age and/or menstrual status not provided Trichomonas vaginalis, QL, TMA, PAP Vial NOT DETECTED NOT DETECTED [facility] Comment: The analytical performance characteristics of this assay have been determined by [employer]. The modifications have not been cleared or approved by the FDA. This assay has been validated pursuant to the CLIA regulations and is used for clinical purposes. ?? For additional information, please refer to [email or web address]/ faq/Trichomonastma (This link is being provided for information/ educational purposes only.) ?? 10/20/2021 4:29 PM EST us Shirin Newberry CNM LAB PATHOLOGY ORDERABLES Final Result [facility] [address] from Last 3 Months or Most Recently Relevant to Health Maintenance Insurance [facility] Care Teams Assistant Activities Director Relationship Specialty Start Date End Date Laure Salvador MD [address] [place] [address] [place] [address] PCP - General Family Medicine 11/14/18
--- OUTSIDE RECORDS SUMMARY | 2024-12-18 13:55 | XMS_ITS | Encounter Summary ---
Author Organization [employer] Address [address] [facility] 7t [place] [address] Care Team Providers Care Divine Healer Name Role Phone Laure Salvador MD Primary Care Provider [phone] Reason for Visit * Reason Comments Med Refill Encounter Details Date Type Department Care Team ([facility] Contact Info) Description 04/13/2024 Refill [facility]S [address] [place], [place] [phone] Laure Salvador MD [address] [place] [address] Social History Tobacco Use Types Packs/Day Years Used Date Smoking Tobacco: Never Passive Smoke Exposure: Never Smokeless Tobacco: Never Depression Answer Date Recorded Patient Health Questionnaire-9 [...] Orientation Straight 09/13/2022 10 :17 AM EDT documented as of this encounter Miscellaneous Notes * Telephone Encounter - Olesya Marsh RN - 04/16/2024 11:04 AM EDT Pt can stop Vit D and no longer needs to be on it documented in this encounter Plan of Treatment Upcoming Encounters Date Type Department Care Team (Late st Contact Info) Description 01/17/2025 9:00 AM EST Office Visit [facility]ED[facility] [address] [place] [address] Laure Salvador MD [address] [place] [address] documented as of this encounter Visit Diagnoses Not on filedocumented in this encounter Additional Health Concerns Assessment Noted Time PHQ-9 Depression Total Score: 0 01/19/20 24 3:36 PM EST documented as of this encounter Care Teams Divine Healer Relationship Specialty Start Date End Date Laure Salvador MD [address] [place] [address] PCP - General Family Medicine 11/14/18 documented as of this encounter
--- OUTSIDE RECORDS SUMMARY | 2024-12-18 13:55 | XMS_ITS | Encounter Summary ---
Author Organization [employer] Address [address] [facility] 7t [place] [address] Care Team Providers Care Grades 1 Through 5 Teacher Name Role Phone Laure Salvador MD Primary Care Provider [phone] Reason for Visit * Reason Comments Med Refill Encounter Details Date Type Department Care Team ([facility] st Contact Info) Description 04/22/2024 Refill [facility] [address] [place], [place] [phone] Laure Salvador MD [address] [place] [address] Social History Tobacco Use Types Packs/Day Years [...] AM EDT documented as of this encounter Plan of Treatment Upcoming Encounters Date Type Department Care Team (Late st Contact Info) Description 01/17/2025 9:00 AM EST Office Visit [facility] MED & PEDS [address] [place] [address] Laure Salvador MD [address] [place] [address] documented as of this encounter Visit Diagnoses Not on filedocumented in this encounter Additional Health Concerns Assessment Noted Time PHQ-9 Depression Total Score: 0 01/19/20 24 3:36 PM EST documented as of this encounter Care Teams Grades 1 Through 5 Teacher Relationship Specialty Start Date End Date Laure Salvador MD [address] [place] [address] PCP - General Family Medicine 11/14/18 documented as of this encounter
--- OUTSIDE RECORDS SUMMARY | 2024-12-18 13:55 | XMS_ITS | Encounter Summary ---
Author Organization [employer] [facility] Address [address] [place] [address] Care Team Providers Care Chainstitch Hemmer Name Role Phone Laure Salvador MD Primary Care Provider Encounter Details Date Type Department Care Team (Late Contact Info) Description 03/28/2023 Abstract [facility] MED & PEDS [address] [place] [address] Laure Salvador MD [address] [place] [address] Social History Tobacco Use Types Packs/Day Years Used Date Smoking Tobacco: Never Assessed Comments Unknown Sex and Gender Information Value Date Recorded Sex Assigned at Female 09/13/2022 10:17 AM EDT Legal Sex Female 10:17 AM EDT Gender Identity Female 09/13/2022 10:17 AM EDT Sexual Orientation Straight 09/13/2022 10 :17 AM EDT documented as of this encounter Plan of Treatment Upcoming Encounters Date Type Department Care Team (Late Contact Info) Description 01/17/2025 9:00 AM EST Office Visit [facility] MED [facility] PEDS [address] [place] [address] Laure Salvador MD [address] [place] [address] documented as of this encounter Visit Diagnoses Not on filedocumented in this encounter Care Teams Chainstitch Hemmer Relationship Specialty Start Date End Date Laure Salvador MD [address] [place] [address] PCP - General Family Medicine 11/14/18 documented as of this encounter
== END 2024-12-18 14:41 | disposition home or self-care (01) ==
LOC: HO.HWS 13:45
PROVIDERS: PCP Pediatrics; Visit Provider Advanced Practice Midwife
DX: N64.4 Mastodynia (principal); N60.02 Solitary cyst of left breast; R10.2 Pelvic and perineal pain; R30.0 Dysuria
CPT/HCPCS: 99213

== ENCOUNTER 2024-12-24 15:22 | Outpatient (REF) | payer OTHER, SELFPAY ==
--- NOTE | ~2024-12-24 | US_ITS ---
EXAMINATION: US PELVIS CLINICAL INFORMATION: Pelvic pain. 44 year female. History of tubal ligation and ovarian cystectomy. COMPARISON: 03/14/2024. TECHNIQUE: Ultrasound of the pelvis is performed using both transabdominal and transvaginal transducers along with Doppler. Transvaginal imaging is performed due to inadequate visualization transabdominally. FINDINGS: Uterus: The uterus is anteverted and measures 9.2 x 4.3 x 6.5 cm. Normal-appearing cervix. The double wall endometrial thickness is 4 mm. It is uniform. The uterus is smooth in contour and has normal myometrial echogenicity. No visible fibroid. Adnexa: Both ovaries are visualized. There is normal color flow to the adnexa. There is no ovarian torsion. There is no pelvic ascites or fluid collection. There is a left small hydrosalpinx, measuring 5 mm in diameter, improved from prior exams. Right ovary measures 4.1 x 2.3 x 1.6 cm. Volume = 7.8 mL. Normal sonographic appearance. Left ovary measures 3.4 x 1.9 x 3.1 cm. Volume = 10.8 mL. Normal sonographic appearance. US/US pelvic and transvaginal IMPRESSION: 1. Normal uterus and endometrium. 2. Small left-sided hydrosalpinx, smaller as compared with priors. 3. Normal ovaries bilaterally. Electronically signed by: Joe Pabon MD 12/24/2024 04:31 PM [facility]
--- OUTSIDE RECORDS SUMMARY | 2024-12-24 16:21 | XMS_ITS | Encounter Summary ---
Author Organization [employer] [facility] Address [address] [place] [address] Care Team Providers Care Block Saw Operator Name Role Phone Laure Salvador MD Primary Care Provider [phone] Encounter Details Date Type Department Care Team (Late Contact Info) Description 03/28/2023 Abstract [facility] [address] [place] [address] Laure Salvador MD [address] [place] [address] Social History Tobacco Use Types Packs/Day Years [...] Description 01/17/2025 9:00 AM EST Office Visit [facility] [address] [place] [address] Laure Salvador MD [address] [place] [address] documented as of this encounter Visit Diagnoses Not on filedocumented in this encounter Care Teams Block Saw Operator Relationship Specialty Start Date End Date Laure Salvador MD [address] [place] [address] PCP - General Family Medicine 11/14/18 documented as of this encounter
--- OUTSIDE RECORDS SUMMARY | 2024-12-24 16:21 | XMS_ITS | Encounter Summary ---
Author Organization [employer] Address [address] [place] [address] Care Team Providers Care Gas Torch Brazier Name Role Phone Laure Salvador MD Primary Care Provider [phone] Encounter Details Date Type Department Care Team (Late st Contact Info) Description 12/18/2024 Orders Only GENERIC EXTERNAL DATA DEPARTMENT Provider, Generic External Data Social History Tobacco Use Types Packs/Day Years [...] Description 01/17/2025 9:00 AM EST Office Visit [facility] [address] [place] [address] Laure Salvador MD [address] [place] [address] documented as of this encounter Procedures Procedure Name Priority Date/Time Associated Diagnosis Comments BACTERIAL VAGINOSIS PANEL Routine 12/18/2024 1:45 PM EST CULTURE, URINE, ROUTINE Routine 12/18/2024 1:45 PM EST documented in this encounter Results * Culture, Urine, Routine (12/18/2024 1:45 PM EST) Urine Urine specimen obtained by clean catch procedure / Unknown 12/18/2024 1:45 PM EST 12/18/2024 3:35 PM EST Comment:CC Narrative [facility] - 12/20/2024 10:23 AM EST Urine Culture Report Result Urine Culture 50,000 to 100,000 cfu/ml Urine Culture Mixed bacterial gillian characteristic of Urine Culture urogenital contamination. Specimen Source: Urine clean catch us Generic External Data Provider LAB MICROBIOLOGY - GENERAL ORDERABLES Final Result [facility] [address] [place] [address] [phone] * Bacterial Vaginosis (12/18/2024 1:45 PM EST) TRICHOMONAS VAGINALIS DETECTION BY PCR NOT DETECTED Not Detect [facility] BACTERIAL VAGINOSIS DETECTION BY PCR NEGATIVE Negative [facility] Comment:The BV organism targ ets of the Xpert Xpress MVP test can becommensal in women; Xpert Xpress MVP positive results forbacterial vaginosis should be considered in conjunction withother clinical and patient information to determine thedisease status. Organisms that are not detected by the XpertXpress MVP test have also been reported to be associatedwith BV and aerobic vaginitis.The Xpert Xpress MVP test performance has not been evaluatedin patients under the age of 14. ZAIDA GROUP DETECTION BY PCR NOT DETECTED Not Detect [facility] Zaida glab krusei PCR NOT DETECTED Not Detect [facility] 12/18/2024 1:45 PM EST 12/18/2024 3:35 PM EST us Generic External Data Provider LAB MICROBIOLOGY - GENERAL ORDERABLES Final Result [facility] [address] [place] [address] [phone] documented in this encounter Visit Diagnoses Not on filedocumented in this encounter Additional Health Concerns Assessment Noted Time PHQ-9 Depression Total Score: 0 01/19/20 24 3:36 PM EST documented as of this encounter Care Teams Gas Torch Brazier Relationship Specialty Start Date End Date Laure Salvador MD [address] [place] [address] PCP - General Family Medicine 11/14/18 documented as of this encounter
--- OUTSIDE RECORDS SUMMARY | 2024-12-24 16:21 | XMS_ITS | Encounter Summary ---
Author Organization [employer] Address [address] [facility] 7t [place] [address] Care Team Providers Care Fermenter Champagne Name Role Phone Laure Salvador MD Primary Care Provider [phone] Reason for Visit * Reason Comments Med Refill Encounter Details Date Type Department Care Team ([facility] st Contact Info) Description 04/22/2024 Refill [facility] [address] [place], [place] [phone] Laure Salvador MD [address] [place] [address] Social History Tobacco Use Types Packs/Day Years [...] Description 01/17/2025 9:00 AM EST Office Visit [facility] [address] [place] [address] Laure Salvador MD [address] [place] [address] documented as of this encounter Visit Diagnoses Not on filedocumented in this encounter Additional Health Concerns Assessment Noted Time PHQ-9 Depression Total Score: 0 01/19/20 24 3:36 PM EST documented as of this encounter Care Teams Fermenter Champagne Relationship Specialty Start Date End Date Lauer Salvador MD [address] [place] [address] PCP - General Family Medicine 11/14/18 documented as of this encounter
--- OUTSIDE RECORDS SUMMARY | 2024-12-24 16:21 | XMS_ITS | Encounter Summary ---
Author Organization [employer] Address [address] [facility] 7t [place] [address] Care Team Providers Care Account Review Specialist Name Role Phone Laure Salvador MD Primary Care Provider [phone] Reason for Visit * Reason Comments Med Refill Encounter Details Date Type Department Care Team ([facility] Contact Info) Description 04/13/[address] [facility] PEDS [address] [place], [place] [phone] Laure Salvador MD [address] [place] [address] Social History Tobacco Use Types Packs/Day Years [...] 01/17/2025 9:00 AM EST Office Visit [facility] [address] [place] [address] Laure Salvador MD [address] [place] [address] documented as of this encounter Visit Diagnoses Not on filedocumented in this encounter Additional Health Concerns Assessment Noted Time PHQ-9 Depression Total Score: 0 01/19/20 24 3:36 PM EST documented as of this encounter Care Teams Account Review Specialist Relationship Specialty Start Date End Date Laure Salvador MD [address] [place] [address] PCP - General Family Medicine 11/14/18 documented as of this encounter
--- OUTSIDE RECORDS SUMMARY | 2024-12-24 16:21 | XMS_ITS | Clinical Summary ---
Author Organization [employer] Address [address] [facility] 7t [place] [address] Care Team Providers Care Child Support Investigator Name Role Phone Laure Salvador MD Primary Care Provider [phone] Allergies No known active allergies Medications ergocalciferol (Vitamin D2) 1.25 MG (01964 UT) capsule Take 1 capsule (1.25 mg) by mouth 1 (one) time per week. 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 I have adi sing 01/19/[address] you li [...] Description 01/17/2025 9:00 AM EST Office Visit [facility] [address] [place] [address] Laure Salvador MD [address] [place] [address] Health Maintenance Due Date Last Done Comments [...] Procedure Name Priority Date/Time Associated Diagnosis Comments CULTURE, URINE, ROUTINE Routine 12/18/2024 1:45 PM EST BACTERIAL VAGINOSIS PANEL Routine 12/18/2024 1:45 PM EST BI US BREAST LIMITED LEFT Routine 11/15/2024 2:30 PM EST BI MAMMOGRAM DIAGNOSTIC TOMOSYNTHESIS BILATERAL Routine 11/15/2024 2:00 PM EST THINPREP IMAGING PAP AND HPV MRNA E6/E7, WITH CT/NG, TRICHOMONAS Routine 10/20/2021 4:29 PM EST from Last 3 Months or Most Recently Relevant to Health Maintenance Results * Bacterial Vaginosis (12/18/2024 1:45 PM EST) TRICHOMONAS VAGINALIS DETECTION BY PCR NOT DETECTED Not Detect [facility] BACTERIAL VAGINOSIS DETECTION BY PCR NEGATIVE Negative [facility] Comment:The BV organism targ ets of [...] DETECTION BY PCR NOT DETECTED Not Detect [facility] Zaida glab krusei PCR NOT DETECTED Not Detect [facility] 12/18/2024 1:45 PM EST 12/18/2024 3:35 PM EST us Generic External Data Provider LAB MICROBIOLOGY - GENERAL ORDERABLES Final Result Performing Organization Address [facility] Co de Phone Number [facility] [address] [place] [address] [phone] * Culture, Urine, Routine (12/18/2024 1:45 PM EST) Urine Urine specimen obtained by clean catch procedure / Unknown 12/18/2024 1:45 PM EST 12/18/2024 3:35 PM EST Comment:UACC Narrative [facility] - 12/20/2024 10:23 AM EST Urine Culture Report Result Urine Culture 50,000 to 100,000 cfu/ml Urine Culture Mixed bacterial gillian characteristic of Urine Culture urogenital contamination. Specimen Source: Urine clean catch Generic External Data Provider LAB MICROBIOLOGY - GENERAL ORDERABLES Final Result Performing Organization Address [facility] Co de Phone Number [facility] [address] [place] [address] [phone] * BI US Breast Limited Left (11/15/2024 2:30 PM EST) Anatomical Region Laterality Modality Breast Left Ultrasound 11/15/2024 2:30 PM EST Narrative 11/15/2024 2:58 PM EST ? [facility] ? [address] ?[place] [address] ? Ultrasound Report ? Signed ? Patient: Brittani Lin ?M ?? R#: [id number] ? : 1980 ?Acct:[id number] ? Age/Sex: 44 / F ?ADM Date: 11/15/ ? Loc: HO.MAMMO ? Attending Dr: Laure Salvador MD ? Ordering Physician: Laure Salvador MD ?? Date of Service: 11/15/24 ?? Procedure(s): US breast LT limited mamm only ?? Accession Number(s): [id number] ? cc: Laure Salvador MD ? EXAMINATION: ?? MM DIAGNOSTIC [...] 11/15/24 1456 ? DD/ 1430 ? TD/TT: 11/15/24 1452 ? Emissions Testing Technician: ? Procedure Note Han, Image - 11/15/2024 [facility] [address] [place] [address] [place] [address] Ultrasound Report Signed Patient: Brittani Lin R#: [id number] : 1980Acct:[id number] Age/Sex: 44 / FADM Date: 11/15/24 Loc: HO.MAMMO Attending Dr: Laure Salvador MD Ordering Physician: Laure Salvador MD Date of Service: 11/15/24 Procedure(s): US breast LT limited mamm only Accession Number(s): [id number] cc: Laure Salvador MD EXAMINATION: MM DIAGNOSTIC [...] by: Skye Doan DO 11/15/2024 02:56 PM [facility] Dictated By: Skye Doan DO Signed By: <Electronically signed by Skye Doan DO in OV> 11/15/24 1456 DD/ 1430 TD/TT: 11/15/24 1452 Emissions Testing Technician: us Laure CASTILLO US PROCEDURES Edited Resu lt - Final * BI Mammogram Diagnostic Tomosynthesis Bilateral (11/15/2024 2:00 PM EST) Anatomical Region Laterality Modality Breast Bilateral Mammography 11/15/2024 2:00 PM EST Narrative 11/15/2024 2:58 PM EST ? [facility] ? [address] ?[place] [address] ? Mammography Report ? Signed ? Patient: Brittani Lin ?M ?? R#: [id number] ? : 1980 ?Acct:[id number] ? Age/Sex: 44 / F ?ADM Date: 11/15/24 ? Loc: HO.MAMMO ? Attending Lakia [place] MD ? Ordering Physician: Erin Martinez CNCristiano ?Results: 2Beni ?? gn Findings ? Date of Service: 11/15/24 ?Follow Up: 1 Year From Orig ?? inal Mammogram ? Procedure(s): MM tomosynthesis diagnostic BI ?? Accession Number(s): [id number] ? cc: Laure [place] MD; Erin Martinez [...] DO in OV> ? 11/15/24 1456 ? DD/DT: 11/15/ 1400 ? TD/TT: 11/15/24 1430 ? Emissions Testing Technician: ? Procedure Note Donotuseinterpreter, Image - 11/15/2024 [facility] [address] [place], [place] [address] Mammography Report Signed Patient: Brittani Lin LM R#: [id number] : 1980Acct:[id number] Age/Sex: 44 / FADM Date: 11/15/24 Loc: HO.MAMMO Attending Dr: Laure Salvador MD Ordering Physician: Erin MartinezMResults: 2Beni gn Findings Date of Service: 11/15/24Follow Up: 1 Year From Orig inal Mammogram Procedure(s): MM tomosynthesis diagnostic BI Accession Number(s): [id number] cc: Laure [place] MD; Erin Martinez CNM [...] by: Skye Doan DO 11/15/2024 02:56 PM EST Dictated By: Skye Doan DO Signed By: <Electronically signed by Skye Doan DO in OV> 11/15/24 1456 DD/ 1400 TD/TT: 11/15/24 1430 Emissions Testing Technician: [facility] External Provider IMG BI PROCEDURES Edited Result - Final * THINPREP TIS PAP AND HPV mRNA E6/E7, CT/NG, TRICH (10/20/2021 4:29 PM EST) Chlamydia trachomatis RNA, TMA, Urogenital NOT DETECTED NOT DETECTED [facility] Clinical Information: Z113 Z124 [facility] COMMENT SEE COMMENT [facility] Comment: The analytical performance characteristics of this assay, when used to test SurePath(TM) specimens have been determined by [employer]. The modifications have not been cleared or approved by the FDA. This assay has been validated pursuant to the CLIA regulations and is used for clinical purposes. ?? For additional information, please refer to https://education.ClassBug/faq/MQK285 (This link is being provided for information/ [...] has been evaluated with computer assisted technology. [facility] Early Childhood Lead Teacher: SEE COMMENT [facility] Comment: ED, CT(ASCP) CT screening location: ?? [facility] ?? [address] [place] [address] ?? [place] [address] HPV nRNA E6/E7 Not Detected Not Detected [facility] Comment: Methodology: Dump Motor Operator-Mediated Amplification This assay detects E6/E7 viral messenger RNA (mRNA) from 14 high-risk HPV types (16,18,31,33,35,39,45,51,52,56,58,59,66,68). ? The analytical performance characteristics of this assay have been determined by [employer]. The modifications have not been cleared or approved by the FDA. This assay has been validated pursuant to the CLIA regulations and is used for clinical purposes. ?? For additional information, please refer to http://MEDOVENT.ClassBug/faq/UWJ957m2 (This link if provided for information/ educational [...] of this assay have been determined by [employer]. The modifications have not been cleared or approved by the FDA. This assay has been validated pursuant to the CLIA regulations and is used for clinical purposes. ?? For additional information, please refer to http://MEDOVENT.ClassBug/ faq/Trichomonastma (This link is being provided for information/ educational purposes only.) ?? 10/20/2021 4:29 PM EST us Shirin BRADSHAW LAB PATHOLOGY ORDERABLES Final Result [facility] [address] from Last 3 Months or Most Recently Relevant to Health Maintenance Insurance [facility] [place] [id number] Care Teams Child Support Investigator Relationship Specialty Start Date End Date Laure [place] MD [address] [facility] [place] [address] PCP - General Family Medicine 11/14/18
== END 2024-12-24 15:23 | disposition home or self-care (01) ==
LOC: HO.HMGCX 15:22
PROVIDERS: PCP Pediatrics; Visit Provider Advanced Practice Midwife
DX: R10.2 Pelvic and perineal pain (principal); Z98.51 Tubal ligation status
CPT/HCPCS: 76830; 76856

== ENCOUNTER → 2024-12-24 15:23 | Outpatient (BNV) | payer OTHER, SELFPAY | PROVIDERS: PCP Pediatrics; Visit Provider Radiology Diagnostic Radiology | DX: R10.2 Pelvic and perineal pain (principal) | CPT/HCPCS: 76830; 76856 ==

== ENCOUNTER 2025-01-03 13:06 | Outpatient (AMB) | payer OTHER, SELFPAY ==
--- NOTE | 2025-01-03 13:07 | A.OFFVIS_ITS ---
Vital Signs 3 01/03/25 13:15 Height 5 ft 3 in Weight 148 lb 2.41 oz BMI 26.2 Respiration 16 Pulse 72 Intake Visit Reasons: mastodynia Intake Note: Patient is seen in office for evaluation and treatment of mastodynia. Pt c/o: had mammogram and ultrasound done and layout technician recommended to see surgeon due to cyst in the left breast, does not feel any lump, bump, discharge, redness, discomfort, no prior surgeries or infections of the breast, fm hx breast cancer, age of first child 22 yrs, yes to breast feeding with no complications mm/us:11/15/24 Denture Processor Required: No Photographic Technician: Photographic Technician Present Accompanied by: Family/Other Allergies No Known Allergies Allergy (Verified 01/03/25 13:14) Medication List - Last Reconciled 01/03/25 by Enoch Drummond MD No Known Home Meds HPI Comments Details: 44-year-old female patient presenting for evaluation of a density noted in the left breast, 3 o'clock position approximately 3 cm from the nipple. Diagnostic mammogram and ultrasound performed on 11/15/2024 demonstrated a hypoechoic oval circumscribed solid mass versus complicated cyst 8 x 6 x 4 mm she was seen going back to 2020 and has not changed significantly in fact may have actually decreased in size since then. She denies any symptoms in the breast and denies a previous history of breast surgeries. Her family history is significant for a maternal and a paternal aunt with breast cancer. Both are alive and well without active disease. Her menarche was the age of 9; she is in her 1st child was born when she was 22. Her last menstrual period was 2 weeks prior to examination. She denies a family history of ovarian cancers. 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 Sexual orientation: Straight/Heterosexual Gender identity: Female Female Reproductive History Menstrual Age of Menarche: 9 Date of last menstrual period: 12/21/24 Total pregnancies: 2 Number of Living Children: 2 Review of Systems Const All systems reviewed & are unremarkable except as noted in HPI and below Denies chills, Denies fever(s), Denies headache(s), Denies poor appetite and Denies weakness ENT Denies headache(s) Card Denies chest pain, Denies irregular heart rhythm, Denies palpitations and Denies dyspnea Resp Denies cough, Denies excessive phlegm production and Denies dyspnea GI Denies abdominal pain, Denies bloating, Denies change in bowel habits, Denies constipation, Denies heartburn, Denies diarrhea, Denies nausea and Denies vomiting Denies urinary frequency Musc Denies back pain, Denies muscle weakness and Denies numbness Skin/Breast Denies changing lesions and Denies unusual bruising Neuro Denies headache(s), Denies numbness, Denies paresthesias and Denies weakness Psych Denies anxiety and Denies depression Endo Denies palpitations Terrance/Lymph Denies lymphadenopathy Physical Exam Vital Signs: Last Vital Signs Pulse 72 01/03/25 13:15 Resp 16 01/03/25 13:15 BMI result Body Mass Index 26.2 Const General: cooperative and no acute distress Nutritional Appearance: well nourished Orientation/consciousness: patient oriented x3 Limitations: no limitations HEENT Head: Yes normocephalic and Yes atraumatic Ears: hearing grossly normal bilaterally Chest Other: Left breast: No skin change, no nipple retraction, no nipple discharge, small palpable nodule is identified in the 3 o'clock position approximately 3-5 cm from the nipple, mobile within the breast tissue with smooth margins suggestive of a fibroadenoma., no enlarged lymph nodes. Right breast: No skin change, no nipple retraction, no nipple discharge, no palpable mass, no enlarged lymph nodes Chest/axillae images: 2 1. Site of palpable abnormality Resp Effort & Inspection: normal respiratory effort, no audible wheezes, no cough and no respiratory distress Cardio Jugular venous distension: no JVD GI Inspection: Yes normal to inspection Skin Other: Warm, dry, no rash Neuro General: patient oriented x3 Extrem General: Yes no clubbing, cyanosis or edema Assessment & Plan Assessment & Plan (1) Cyst of left breast: Code(s): N60.02 - Solitary cyst of left breast Category: Medical Plan 44-year-old female patient presenting for breast evaluation after recent mammogram and ultrasound revealed a density in the left breast at the 3 o'clock position felt to be stable over the past 4 years without significant change. This was felt to be benign and no further workup was recommended. The patient is asymptomatic and denies any palpable mass on self-examination. Her family history is positive for 2 aunts on both her father and mother side both with breast cancer. She denies any previous breast surgeries. On examination there is indeed a palpable density in the 3 o'clock position approximately 3-5 cm from the nipple. This appears to correspond to the ultrasound findings. It has a very benign feel, possibly suggestive of a fibroadenoma. I reviewed the mammogram and ultrasound results in detail with the patient and her daughter. The lesion has been documented to decrease in size since 2020. 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 No further surgical intervention is recommended at this time. She should continue with her routine self-examination and annual mammograms. She is welcome to return for any new concerns. Coding Level of Care Code New Pt Level 4 (46562) Diagnoses Cyst of left breast N60.02
[2025-01-03 13:15] VITALS: PULSE 72; RESP 16; BMI 26.2
--- OUTSIDE RECORDS SUMMARY | 2025-01-03 14:02 | XMS_ITS | Encounter Summary ---
Author Organization [employer] Address [address] [facility] 7t [place] [address] Care Team Providers Care Custom Bow Maker Name Role Phone Laure Salvador MD Primary Care Provider [phone] Reason for Visit * Reason Comments Med Refill Encounter Details Date Type Department Care Team ([facility] Contact Info) Description 04/13/2024 Refill [facility]EDS [address] [place], [place] [phone] Laure Salvador MD [address] [place] [address] Social History Tobacco Use Types Packs/Day Years [...] [facility] [address] [place] [address] Laure Salvador MD [address] [place] [address] documented as of this encounter Visit Diagnoses Not on filedocumented in this encounter Additional Health Concerns Assessment Noted Time PHQ-9 Depression Total Score: 0 01/19/20 24 3:36 PM EST documented as of this encounter Care Teams Custom Bow Maker Relationship Specialty Start Date End Date Laure Salvador MD [address] [place] [address] PCP - General Family Medicine 11/14/18 documented as of this encounter
--- OUTSIDE RECORDS SUMMARY | 2025-01-03 14:02 | XMS_ITS | Encounter Summary ---
Author Organization [facility] Address [address] [place] [address] Care Team Providers Care Shell Fisherman Name Role Phone Laure Salvador MD Primary Care Provider [phone] Encounter Details Date Type Department Care Team (Late Contact Info) Description 03/28/2023 Abstract [facility] [address] [place] [address] Laure Salvador MD [address] [place] [address] Social History Tobacco Use Types Packs/Day Years [...] [facility] [address] [place] [address] Laure Salvador MD [address] [place] [address] documented as of this encounter Visit Diagnoses Not on filedocumented in this encounter Care Teams Shell Fisherman Relationship Specialty Start Date End Date Laure Salvador MD [address] [place] [address] PCP - General Family Medicine 11/14/18 documented as of this encounter
--- OUTSIDE RECORDS SUMMARY | 2025-01-03 14:02 | XMS_ITS | Clinical Summary ---
Author Organization [employer] Address [address] [facility] 7t [place] [address] Care Team Providers Care Gum Mixer Name Role Phone Laure Salvador MD Primary Care Provider [phone] Allergies No known active allergies Medications ergocalciferol (Vitamin D2) 1.25 MG (16639 UT) capsule Take 1 capsule (1.25 mg) [...] Provider, Generic External Data 11/15/2024 Orders Only [facility] [address] [place] [address] Laure Salvador MD from Last 3 Months [...] Description 01/17/2025 9:00 AM EST Office Visit [facility] [address] [place] [address] Laure Salvador MD [address] [place] [address] Health Maintenance Due Date Last Done Comments [...] Procedure Name Priority Date/Time Associated Diagnosis Comments US PELVIS TRANSVAGINAL Routine 3:31 PM EST CULTURE, URINE, ROUTINE Routine 12/18/2024 [...] Recently Relevant to Health Maintenance Results * US Pelvis Transvaginal (12/24/2024 3:31 PM EST) Anatomical Region Laterality Modality Pelvis Ultrasound 12/24/2024 3:31 PM EST Narrative 12/24/2024 4:34 PM EST ? [facility] ?[address] ? [place] [address] ? Ultrasound Report ? Signed ? Patient: Sosa Bosch,Claudia ?M ?? R#: [id number] ? : 1980 ?Acct:[id number] ? Age/Sex: 44 / F ?ADM Date: 02/10/25 ? Loc: HO.HMGCX ? Attending : Erin Martinez CNM ? Ordering Physician: Erin Martinez CNM ?? Date of Service: 12/24/24 ?? Procedure(s): US pelvic and transvaginal ?? Accession Number(s): [id number] ? cc: Laure Salvador MD; Erin Martinez CNM ? EXAMINATION: ? US PELVIS ? CLINICAL INFORMATION: ? Pelvic pain. 44 year female. ?? History of tubal ligation and ovarian cystectomy. ? COMPARISON: ?? 03/14/2024. ? TECHNIQUE: ?? Ultrasound of the pelvis is performed using both transabdominal and ?? transvaginal transducers along with Doppler. Transvaginal imaging is ?? performed due to inadequate visualization transabdominally. ? FINDINGS: ?? Uterus: ?? The uterus is anteverted and measures 9.2 x 4.3 x 6.5 cm. ? Normal-appearing cervix. ? The double wall endometrial thickness is 4 mm. ??It is uniform. ? The uterus is smooth in contour and has normal myometrial echogenicity. ?No visible fibroid. ? Adnexa: ?? Both ovaries are visualized. There is normal color flow to the adnexa. ?? There is no ovarian torsion. ??There is no pelvic ascites or fluid ?? collection. There is a left small hydrosalpinx, measuring 5 mm in ?? diameter, improved from prior exams. ? Right ovary measures 4.1 x 2.3 x 1.6 cm. Volume = 7.8 mL. Normal ?? sonographic appearance. ? Left ovary measures 3.4 x 1.9 x 3.1 cm. Volume = 10.8 mL. Normal ?? sonographic appearance. ? US/US pelvic and transvaginal ?? IMPRESSION: ?? 1. Normal uterus and endometrium. ?? 2. Small left-sided hydrosalpinx, smaller as compared with priors. ?? 3. Normal ovaries bilaterally. ? Electronically signed by: ??Joe Pabon MD ??12/24/2024 04:31 PM EST RP ? Dictated By: ?Joe Pabon MD ? Signed By: ?<Electronically signed by Joe Pabon MD in OV> ?12/24/24 1631 ? DD/ 1531 ? TD/TT: 12/24/24 1546 ? Rod Buster Helper: ? Procedure Note Han, Mago - 12/24/2024 [facility] [address] [facility] [place] [address] Ultrasound Report Signed Patient: Brittani Lin R#: [id number] : 1980Acct:[id number] Age/Sex: 44 / FADM Date: 12/24/24 Loc: HO.HMGCX Attending Dr: Erin Martinez CNM Ordering Physician: Erin Martinez CNM Date of Service: 12/24/24 Procedure(s): US pelvic and transvaginal Accession Number(s): [id number] cc: Laure Salvador MD; Erin Martinez CNM EXAMINATION: US PELVIS CLINICAL INFORMATION: Pelvic pain. 44 year female. History of tubal ligation and ovarian cystectomy. COMPARISON: 03/14/2024. TECHNIQUE: Ultrasound of the pelvis is performed using both transabdominal and transvaginal transducers along with Doppler. Transvaginal imaging is performed due to inadequate visualization transabdominally. FINDINGS: Uterus: The uterus is anteverted and measures 9.2 x 4.3 x 6.5 cm. Normal-appearing cervix. The double wall endometrial thickness is 4 mm. It is uniform. The uterus is smooth in contour and has normal myometrial echogenicity. No visible fibroid. Adnexa: Both ovaries are visualized. There is normal color flow to the adnexa. There is no ovarian torsion. There is no pelvic ascites or fluid collection. There is a left small hydrosalpinx, measuring 5 mm in diameter, improved from prior exams. Right ovary measures 4.1 x 2.3 x 1.6 cm. Volume = 7.8 mL. Normal sonographic appearance. Left ovary measures 3.4 x 1.9 x 3.1 cm. Volume = 10.8 mL. Normal sonographic appearance. US/US pelvic and transvaginal IMPRESSION: 1. Normal uterus and endometrium. 2. Small left-sided hydrosalpinx, smaller as compared with priors. 3. Normal ovaries bilaterally. Electronically signed by: Joe Pabon MD 12/24/2024 04:31 PM [facility] Dictated By: Joe Pabon MD Signed By: <Electronically signed by Joe Pabon MD in OV> 12/24/24 1631 DD/ 1531 TD/TT: 12/24/24 1546 Rod Buster Helper: [facility] External Provider IMG US PROCEDURES Final Result * Bacterial Vaginosis (12/18/2024 1:45 PM EST) TRICHOMONAS VAGINALIS DETECTION BY PCR NOT DETECTED Not Detect [facility] BACTERIAL VAGINOSIS DETECTION BY PCR NEGATIVE Negative [facility] Comment:The BV organism targ ets of [...] DETECTION BY PCR NOT DETECTED Not Detect [facility] Zaida glab krusei PCR NOT DETECTED Not Detect [facility] 12/18/2024 1:45 PM EST 12/18/2024 3:35 PM EST Generic External Data Provider LAB MICROBIOLOGY - GENERAL ORDERABLES Final Result Performing Organization Address [facility]/State/[facility] Co de Phone Number [facility] [address] [place] [phone] * Culture, Urine, Routine (12/18/2024 1:45 PM EST) Urine Urine specimen obtained by clean catch procedure / Unknown 12/18/2024 1:45 PM EST 12/18/2024 3:35 PM EST Comment:UACC Narrative [facility] - 12/20/2024 10:23 AM EST Urine Culture Report Result Urine Culture 50,000 to 100,000 cfu/ml Urine Culture Mixed bacterial gillian characteristic of Urine Culture urogenital contamination. Specimen Source: Urine clean catch Generic External Data Provider LAB MICROBIOLOGY - GENERAL ORDERABLES Final Result [facility] [address] [place] [address] [phone] * BI US Breast Limited Left (11/15/2024 2:30 PM EST) Anatomical Region Laterality Modality Breast Left Ultrasound 11/15/2024 2:30 PM EST Narrative 11/15/2024 2:58 PM EST ? [facility] ? [address] ?[place] [address] ? Ultrasound Report ? Signed ? Patient: Brittani Lin ?M ?? R#: [id number] ? : 1980 ?Acct:[id number] ? Age/Sex: 44 / F ?ADM Date: 11/15/24 ? Loc: HO.MAMMO ? Attending Dr: Laure Salvador MD ? Ordering Physician: Laure Salvador MD ?? Date of Service: 11/15/24 ?? Procedure(s): US breast LT limited mamm only ?? Accession Number(s): [id number] ? cc: Laure Salvador MD ? EXAMINATION: [...] Signed By: ?<Electronically signed by Skye Doan, in OV> ? 11/15/24 1456 ? DD/ 1430 ? TD/TT: 11/15/24 1452 ? Rod Buster Helper: ? Procedure Note Donpatric, Image - 11/15/2024 [facility] [address] [place] [address] Ultrasound Report Signed Patient: Brittani Lin LM R#: [id number] : 1980Acct:[id number] Age/Sex: 44 / FADM Date: 11/15/24 Loc: TITA Attending Dr: Laure Salvador MD Ordering Physician: Laure Salvador MD Date of Service: 11/15/24 Procedure(s): breast LT limited mamm only Accession Number(s): [id number] cc: Laure Salvador MD EXAMINATION: MM DIAGNOSTIC [...] 11/15/24 1456 DD/ 1430 TD/TT: 11/15/24 1452 Rod Buster Helper: us Laure Salvador MD IMG US PROCEDURES Edited Resu lt - Final * BI Mammogram Diagnostic Tomosynthesis Bilateral (11/15/2024 2:00 PM EST) Anatomical Region Laterality Modality Breast Bilateral Mammography 11/15/2024 2:00 PM EST Narrative 11/15/2024 2:58 PM EST ? [facility] ? [address] ?[place] [address] ? Mammography Report ? Signed ? Patient: Sosa Escobedoos,Caludia ?M ?? R#: [id number] ? : 1980 ?Acct:[id number] ? Age/Sex: 44 / F ?ADM Date: /02/25 ? Loc: HO.MAMMO ? Attending Dr: Laure Salvador MD ? Ordering Physician: Erin Martinez CNM ?Results: 2Beni ?? gn Findings ? Date of Service: 11/15/24 ?Follow Up: 1 Year From Orig ?? inal Mammogram ? Procedure(s): MM tomosynthesis diagnostic BI ?? Accession Number(s): [id number] ? cc: Laure Salvador MD; Erin Martinez [...] DD/ 1400 ? TD/TT: 11/15/24 1430 ? Rod Buster Helper: ? Procedure Note Donpatric, Image - 11/15/2024 [facility] [address] [place] [address] Mammography Report Signed Patient: Brittani Lin R#: [id number] : 1980Acct:[id number] Age/Sex: 44 / FADM Date: 11/15/24 Loc: TITA Attending Dr: Laure Salvador MD Ordering Physician: Erin Martinezesults: 2Beni gn Findings Date of Service: 11/15/24Follow Up: 1 Year From Orig inal Mammogram Procedure(s): MM tomosynthesis diagnostic BI Accession Number(s): [id number] cc: Laure Salvador MD; Erin Martinez CNM [...] 11/15/24 1456 DD/ 1400 TD/TT: 11/15/24 1430 Rod Buster Helper: [facility] External Provider IMG BI PROCEDURES Edited Result - Final * THINPREP TIS PAP AND HPV mRNA E6/E7, CT/NG, TRICH (10/20/2021 4:29 PM EST) Chlamydia trachomatis RNA, TMA, Urogenital NOT DETECTED NOT DETECTED [facility] Clinical Information: Z113 Z124 [facility] COMMENT SEE COMMENT [facility] Comment: The analytical performance characteristics of this assay, when used to test SurePath(TM) specimens have been determined by [employer]. The modifications have not been cleared or approved by the FDA. This assay has been validated pursuant to the CLIA regulations and is used for clinical purposes. ?? For additional information, please refer to https://[employer]/faq/OWD959 (This link is being provided for information/ [...] has been evaluated with computer assisted technology. [facility] Manager Intensive Care Unit: SEE COMMENT [facility] Comment: ED, CT(ASCP) CT screening location: ?? [facility] ?? [address] [place] [address] ?? [place] [address] HPV nRNA E6/E7 Not Detected Not Detected [employer] [facility] Comment: Methodology: Food Production Manager-Mediated Amplification This assay detects E6/E7 viral messenger RNA (mRNA) from 14 high-risk HPV types (16,18,31,33,35,39,45,51,52,56,58,59,66,68). ? The analytical performance characteristics of this assay have been determined by [employer]. The modifications have not been cleared or approved by the FDA. This assay has been validated pursuant to the CLIA regulations and is used for clinical purposes. ?? For additional information, please refer to http://[employer]/faq/CSY521u6 (This link if provided for information/ educational purposes only.) Interpretation/Re sult: Negative for intraepithelial lesion or malignancy. [facility] LMP: NONE [facility] Neisseria gonorrhoeae RNA, TMA, Urogenital NOT DETECTED NOT DETECTED [facility] Prev. BX: NONE [facility] Prev. PAP: NONE [facility] SOURCE: Cervix [facility] Statement Of Adequacy: SEE COMMENT [facility] Comment: Satisfactory for evaluation. Endocervical/transformation zone component present. Age and/or menstrual status not provided Trichomonas vaginalis, QL, TMA, PAP Vial NOT DETECTED NOT DETECTED [facility] Comment: The analytical performance characteristics of this assay have been determined by [employer]. The modifications have not been cleared or approved by the FDA. This assay has been validated pursuant to the CLIA regulations and is used for clinical purposes. ?? For additional information, please refer to http://education.[employer]/ faq/Trichomonastma (This link is being provided for information/ educational purposes only.) ?? 10/20/2021 4:29 PM EST us Shirin Newberry CNM LAB PATHOLOGY ORDERABLES Final Result Performing Organization Address City/State/[facility] Co de Phone Number [facility] [address] [place] [address] from Last 3 Months or Most Recently Relevant to Health Maintenance Insurance [facility] [place] [id number] Care Teams Gum Mixer Relationship Specialty Start Date End Date Laure Salvador MD [address] [place] [address] [place] [address] PCP - General Family Medicine 11/14/18
--- OUTSIDE RECORDS SUMMARY | 2025-01-03 14:02 | XMS_ITS | Encounter Summary ---
Author Organization [facility] Address [address] 7[address] [place] [address] Care Team Providers Care Sky Diver Name Role Phone Laure Salvador MD Primary Care Provider [phone] Encounter Details Date Type Department Care Team [...] Upcoming Encounters Date Type Department Care Team ([facility] st Contact Info) Description 01/17/2025 9:00 AM EST Office Visit [facility] & PEDS [address] [place] [address] Laure Salvador MD [address] [place] [address] documented as of this encounter Procedures Procedure Name Priority Date/Time Associated Diagnosis Comments US PELVIS TRANSVAGINAL Routine 12/24/2024 3:31 PM EST BACTERIAL VAGINOSIS PANEL Routine 12/18/2024 1:45 PM EST CULTURE, URINE, ROUTINE Routine 12/18/2024 1:45 PM EST documented in this encounter Results * US Pelvis Transvaginal (12/24/2024 3:31 PM EST) Anatomical Region Laterality Modality Pelvis Ultrasound 12/24/2024 3:31 PM EST Narrative 12/24/2024 4:34 PM EST ? [facility] ?[address] ? [place] [address] ? Ultrasound Report ? Signed ? Patient: Sosa Bosch,Claudia ?M ?? R#: [id number] ? : 1980 ?Acct:[id number] ? Age/Sex: 44 / F ?ADM Date: 02/10/25 ? Loc: HO.HMGCX ? Attending Dr: Erin Martinez CNM ? Ordering Physician: Erin Martinez CNM ?? Date of Service: 12/24/24 ?? Procedure(s): US pelvic and transvaginal ?? Accession Number(s): [id number] ? cc: Laure Salvador MD; Erin Martinez [...] DD/ 1531 ? TD/TT: 12/24/24 1546 ? Body Line Finisher: ? Procedure Note Han, Mago - 12/24/2024 [facility] [address] [facility] [place] [address] Ultrasound Report Signed Patient: Brittani Lin R#: [id number] : 1980Acct:[id number] Age/Sex: 44 / FADM Date: 12/24/24 Loc: HO.HMGCX Attending Dr: Erin Martinez CNM Ordering Physician: Erin Martinez CNM Date of Service: 12/24/24 Procedure(s): US pelvic and transvaginal Accession Number(s): [id number] cc: Laure Salvador MD; Erin Martinez CNM [...] by: Joe Pabon MD 12/24/2024 04:31 PM [facility] Dictated By: Joe Pabon MD Signed By: <Electronically signed by Joe Pabon MD in OV> 12/24/24 1631 DD/ 1531 TD/TT: 12/24/24 1546 Body Line Finisher: [facility] External Provider IMG US PROCEDURES Final Result * Culture, Urine, Routine (12/18/2024 1:45 PM EST) Urine Urine specimen obtained by clean catch procedure / Unknown 12/18/2024 1:45 PM EST 12/18/2024 3:35 PM EST Comment:UACC Narrative [facility] - 12/20/2024 10:23 AM EST Urine Culture Report Result Urine Culture 50,000 to 100,000 cfu/ml Urine Culture Mixed bacterial gillian characteristic of Urine Culture urogenital contamination. Specimen Source: Urine clean catch Generic External Data Provider LAB MICROBIOLOGY - GENERAL ORDERABLES Final Result Performing Organization Address [facility] Co de Phone Number [facility] [address] [place] [phone] * Bacterial Vaginosis (12/18/2024 1:45 PM EST) TRICHOMONAS VAGINALIS DETECTION BY PCR NOT DETECTED Not Detect [facility] BACTERIAL VAGINOSIS DETECTION BY PCR NEGATIVE Negative [facility] Comment:The BV organism targ ets [...] DETECTION BY PCR NOT DETECTED Not Detect [facility] Zaida glab krusei PCR NOT DETECTED Not Detect [facility] 12/18/2024 1:45 PM EST 12/18/2024 3:35 PM EST Generic External Data Provider LAB MICROBIOLOGY - GENERAL ORDERABLES Final Result Performing Organization Address City/[facility]/ZIP Co de Phone Number [facility] [address] [place] [phone] documented in this encounter Visit Diagnoses Not on filedocumented in this encounter Additional Health Concerns Assessment Noted Time PHQ-9 Depression Total Score: 0 01/19/20 24 3:36 PM EST documented as of this encounter Care Teams Sky Diver Relationship Specialty Start Date End Date Laure Salvador MD [address] [place] [phone] PCP - General Family Medicine 11/14/18 documented as of this encounter
--- OUTSIDE RECORDS SUMMARY | 2025-01-03 14:02 | XMS_ITS | Encounter Summary ---
Author Organization [employer] Address [address] [facility] 7t [place] [address] Care Team Providers Care Instructional Media Services Technician Name Role Phone Laure Salvador MD Primary Care Provider [phone] Reason for Visit * Reason Comments Med Refill Encounter Details Date Type Department Care Team ([facility] st Contact Info) Description 04/22/2024 Refill [facility] [address] [place], [place] [phone] Laure Salvador MD [address] [place] [address] Social History Tobacco Use Types Packs/Day Years [...] Description 01/17/2025 9:00 AM EST Office Visit [facility] [address] [place] [address] Laure Salvador MD [address] [place] [address] documented as of this encounter Visit Diagnoses Not on filedocumented in this encounter Additional Health Concerns Assessment Noted Time PHQ-9 Depression Total Score: 0 01/19/20 24 3:36 PM EST documented as of this encounter Care Teams Instructional Media Services Technician Relationship Specialty Start Date End Date Laure aSlvador MD [address] [place] [address] PCP - General Family Medicine 11/14/18 documented as of this encounter
== END 2025-01-03 13:38 | disposition home or self-care (01) ==
PROVIDERS: PCP Pediatrics; Referring Provider Advanced Practice Midwife; Visit Provider Surgery
DX: N60.02 Solitary cyst of left breast (principal)
CPT/HCPCS: 99204

== ENCOUNTER → 2025-01-03 13:06 | Outpatient (BNVA) | payer OTHER, SELFPAY | PROVIDERS: PCP Pediatrics; Referring Provider Advanced Practice Midwife; Visit Provider Surgery | DX: N60.02 Solitary cyst of left breast (principal) | CPT/HCPCS: 99202 ==

== ENCOUNTER 2025-01-17 09:26 | Outpatient (REF) | payer OTHER, SELFPAY ==
--- OUTSIDE RECORDS SUMMARY | 2025-01-17 10:44 | XMS_ITS | Encounter Summary ---
Author Organization [employer] Address [address] [facility] [address]t [place] [address] Care Team Providers Care Stock Handler Floorperson Name Role Phone Laure Salvador MD Primary Care Provider [phone] Reason for Visit * Reason Comments Med Refill Encounter Details Date Type Department Care Team ([facility] st Contact Info) Description 04/22/2024 Refill [facility] [address] [place], [place] [phone] Laure Salvador MD [address] [place] [address] Social History Tobacco Use Types Packs/Day Years [...] as of this encounter Plan of Treatment Not on file documented as of this encounter Visit Diagnoses Not on filedocumented in this encounter Additional Health Concerns Assessment Noted Time PHQ-9 Depression Total Score: 0 01/19/20 24 3:36 PM EST documented as of this encounter Care Teams Stock Handler Floorperson Relationship Specialty Start Date End Date Laure Salvador MD [address] [place] [address] PCP - General Family Medicine 11/14/18 documented as of this encounter
--- OUTSIDE RECORDS SUMMARY | 2025-01-17 10:44 | XMS_ITS | Clinical Summary ---
Author Organization [facility] Address [address] [place] [address] Care Team Providers Care Safety Lead Name Role Phone Laure Salvador MD Primary Care Provider [phone] Allergies No known active allergies Medications ergocalciferol (Vitamin D2) 1.25 MG (99413 UT) capsule Take 1 capsule (1.25 mg) by mouth 1 (one) time per week. 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 Travel 12/18/2024 Orders Only GENERIC EXTERNAL DATA DEPARTMENT Provider, Generic External Data 11/15/2024 Orders Only [facility] [address] [place] [address] Laure Salvador MD from Last 3 Months [...] Sign Reading Time Taken Comments Blood Pressure 98/63 01/17/2025 9:11 AM EST Pulse 60 01/17/2025 9:11 AM EST Temperature 36.5 ??C (97.7 ??F) 01/17/2025 9:11 AM ES T Respiratory Rate 16 01/17/2025 9:11 AM EST Oxygen Saturation 99% 01/17/2025 9:11 AM EST Inhaled Oxygen Concentration - - Weight 66.2 kg (146 lb) 01/17/2025 9:11 AM EST Height 165.1 cm (5' 5 ) 01/17/2025 9:11 AM EST Body Mass Index 24.3 01/17/2025 9:11 AM EST Plan of Treatment Health Maintenance Due Date Last Done Comments [...] 24 SDOH Screening 01/18/2025 01/19/2024 Tobacco Screening 01/17/2026 01/17/2025 Cervical Cancer Screening 10/20/2026 HPV/Cotest 10/20/2026 10/20/2021 [...] EST Narrative 12/24/2024 4:34 PM EST ? [facility] ?[address] ? [place] [address] ? Ultrasound Report ? Signed ? Patient: Sosa Escobedoos,Claudia ?M ?? R#: [id number] ? : 1980 ?Acct:[id number] ? Age/Sex: 44 / F ?ADM Date: 02/10/25 ? Loc: HO.HMGCX ? Attending Dr: Erin Martinez CNM ? Ordering Physician: Erin Martinez CNM ?? Date of Service: 12/24/24 ?? Procedure(s): US pelvic and transvaginal ?? Accession Number(s): [id number] ? cc: Laure Salvador MD; JuanErinanthony DUFFY ? EXAMINATION: ? US PELVIS ? CLINICAL [...] DD/ 1531 ? TD/TT: 12/24/24 1546 ? Composition Stone Applicator: ? Procedure Note Mago Short - 12/24/2024 [facility] [address] [place] [address] Ultrasound Report Signed Patient: Brittani Lin R#: [id number] : 1980Acct:[id number] Age/Sex: 44 / FADM Date: 12/24/24 Loc: HO.HMGCX Attending Dr: Erin Martinez CNM Ordering Physician: Erin Martinez CNM Date of Service: 12/24/24 Procedure(s): US pelvic and transvaginal Accession Number(s): [id number] cc: Laure Salvador MD; rEin Martinez CNM EXAMINATION: US PELVIS CLINICAL INFORMATION: [...] by: Joe Pabon MD 12/24/2024 04:31 PM [facility] Dictated By: Joe Pabon MD Signed By: <Electronically signed by Joe Pabon MD in OV> 12/24/24 1631 DD/ 1531 TD/TT: 12/24/24 1546 Composition Stone Applicator: [facility] External Provider IMG US PROCEDURES Final Result * Bacterial Vaginosis (12/18/2024 1:45 PM EST) TRICHOMONAS VAGINALIS DETECTION BY PCR NOT DETECTED Not Detect [facility] BACTERIAL VAGINOSIS DETECTION BY PCR NEGATIVE Negative [facility] Comment:The BV organism targ ets [...] DETECTION BY PCR NOT DETECTED Not Detect [facility] Zaida glab krusei PCR NOT DETECTED Not Detect [facility] 12/18/2024 1:45 PM EST 12/18/2024 3:35 PM EST Generic External Data Provider LAB MICROBIOLOGY - GENERAL ORDERABLES Final Result Performing Organization Address [facility]/ZIP Co de Phone Number [facility] [address] [place] [phone] * Culture, Urine, Routine (12/18/2024 1:45 PM EST) Urine Urine specimen obtained by clean catch procedure / Unknown 12/18/2024 1:45 PM EST 12/18/2024 3:35 PM EST Comment:UACC Narrative [facility] - 12/20/2024 10:23 AM EST Urine Culture Report Result Urine Culture 50,000 to 100,000 cfu/ml Urine Culture Mixed bacterial gillian characteristic of Urine Culture urogenital contamination. Specimen Source: Urine clean catch Generic External Data Provider LAB MICROBIOLOGY - GENERAL ORDERABLES Final Result [facility] [address] [place] [address] [phone] * BI US Breast Limited Left (11/15/2024 2:30 PM EST) Anatomical Region Laterality Modality Breast Left Ultrasound 11/15/2024 2:30 PM EST Narrative 11/15/2024 2:58 PM EST ? [facility] ? [address] ?[place] [address] ? Ultrasound Report ? Signed ? Patient: Brittani Lin L ?M ?? R#: [id number] ? : 1980 ?Acct:[id number] ? Age/Sex: 44 / F ?ADM Date: 11/15/24 ? Loc: HO.MAMMO ? Attending Dr: Laure Salvador MD ? Ordering Physician: Laure Salvador MD ?? Date of Service: 11/15/24 ?? Procedure(s): US breast LT limited mamm only ?? Accession Number(s): [id number] ? cc: Laure Salvador MD ? EXAMINATION: [...] ??Skye Doan DO ??11/15/2024 02:56 PM EST ? Dictated By: ?Skye Doan DO ? Signed By: ?<Electronically signed by Skye Doan, DO in OV> ? 11/15/24 1456 ? DD/ 1430 ? TD/TT: 11/15/24 1452 ? Composition Stone Applicator: ? Procedure Note Donalfonzoter, Image - 11/15/2024 [facility] [address] [place] [address] Ultrasound Report Signed Patient: Brittani Lin LM R#: [id number] : 1980Acct:[id number] Age/Sex: 44 / FADM Date: 11/15/24 Loc: TITA Attending Dr: Laure Salvador MD Ordering Physician: Laure Salvador MD Date of Service: 11/15/24 Procedure(s): US breast LT limited mamm only Accession Number(s): [id number] cc: Laure Salvador MD EXAMINATION: MM DIAGNOSTIC [...] Skye Doan DO 11/15/2024 02:56 PM EST RP Dictated By: Skye Doan DO Signed By: <Electronically signed by Skye Doan DO in OV> 11/15/24 1456 DD/ 1430 TD/TT: 11/15/24 1452 Composition Stone Applicator: us Laure Salvador MD IMG US PROCEDURES Edited Resu lt - Final * BI Mammogram Diagnostic Tomosynthesis Bilateral (11/15/2024 2:00 PM EST) Anatomical Region Laterality Modality Breast Bilateral Mammography 11/15/2024 2:00 PM EST Narrative 11/15/2024 2:58 PM EST ? [facility] ? [address] ?[place] [address] ? Mammography Report ? Signed ? Patient: Sosa Bosch,Claudia ?M ?? R#: [id number] ? : 1980 ?Acct:[id number] ? Age/Sex: 44 / F ?ADM Date: 11/15/ ? Loc: HO.MAMMO ? Attending Dr: Laure Salvador MD ? Ordering Physician: Erin Martinez CNM ?Results: 2Beni ?? gn Findings ? Date of Service: 11/15/24 ?Follow Up: 1 Year From Orig ?? inal Mammogram ? Procedure(s): MM tomosynthesis diagnostic BI ?? Accession Number(s): [id number] ? cc: Laure Salvador MD; Erin Martinez [...] ??Skye Doan DO ??11/15/2024 02:56 PM EST ? Dictated By: ?Skye Doan DO ? Signed By: ?<Electronically signed by Skye Doan, DO in OV> ? 11/15/24 1456 ? DD/ 1400 ? TD/TT: 11/15/24 1430 ? Composition Stone Applicator: ? Procedure Note Han, Image - 11/15/2024 [facility] [address] [place] [address] Mammography Report Signed Patient: Sosa Lima SantosBrittani R#: [id number] : 1980Acct:[id number] Age/Sex: 44 / FADM Date: 11/15/24 Loc: TITA Attending Dr: Laure Salvador MD Ordering Physician: Erin MartinezMResults: 2Beni gn Findings Date of Service: 11/15/24Follow Up: 1 Year From Orig inal Mammogram Procedure(s): MM tomosynthesis diagnostic BI Accession Number(s): [id number] cc: Laure Salvador MD; Martinez,Erin CNM EXAMINATION: MM DIAGNOSTIC DIGITAL BREAST TOMOSYNTHESIS, [...] 11/15/24 1456 DD/ 1400 TD/TT: 11/15/24 1430 Composition Stone Applicator: [facility] External Provider IMG BI PROCEDURES Edited Result - Final * THINPREP TIS PAP AND HPV mRNA E6/E7, CT/NG, TRICH (10/20/2021 4:29 PM EST) Chlamydia trachomatis RNA, TMA, Urogenital NOT DETECTED NOT DETECTED [facility] Clinical Information: Z113 Z124 [facility] COMMENT SEE COMMENT [facility] Comment: The analytical performance characteristics of this assay, when used to test SurePath(TM) specimens have been determined by [employer]. The modifications have not been cleared or approved by the FDA. This assay has been validated pursuant to the CLIA regulations and is used for clinical purposes. ?? For additional information, please refer to https://GigDropper.[employer]/faq/UFX065 (This link is being provided for information/ educational purposes only.) ?? COMMENT SEE COMMENT [facility] Comment: EXPLANATORY NOTE: ? [...] has been evaluated with computer assisted technology. [employer] Feller Machine Operator: SEE COMMENT [facility] Medical Referral Source Comment: ED, CT(ASCP) CT screening location: ?? [facility] ?? [address] [place] [address] ?? [place] [address] HPV nRNA E6/E7 Not Detected Not Detected [facility] Comment: Methodology: Hot Punch Press Operator-Mediated Amplification This assay detects E6/E7 viral messenger RNA (mRNA) from 14 high-risk HPV types (16,18,31,33,35,39,45,51,52,56,58,59,66,68). ? The analytical performance characteristics of this assay have been determined by [employer]. The modifications have not been cleared or approved by the FDA. This assay has been validated pursuant to the CLIA regulations and is used for clinical purposes. ?? For additional information, please refer to http://GigDropper.[employer]/faq/IUL129u4 (This link if provided for information/ educational purposes only.) Interpretation/Re sult: Negative for intraepithelial lesion or malignancy. [facility] LMP: NONE [facility]IVEN [facility] Neisseria gonorrhoeae RNA, TMA, Urogenital NOT DETECTED NOT DETECTED [facility] Prev. BX: NONE [facility]IV[facility] Prev. PAP: NONE [facility]IVEN [facility] ON [facility] SOURCE: Cervix [facility] Statement Of Adequacy: SEE COMMENT [facility] Comment: Satisfactory for evaluation. Endocervical/transformation zone component present. Age and/or menstrual status not provided Trichomonas vaginalis, QL, TMA, PAP Vial NOT DETECTED NOT DETECTED [facility] Comment: The analytical performance characteristics of this assay have been determined by [employer]. The modifications have not been cleared or approved by the FDA. This assay has been validated pursuant to the CLIA regulations and is used for clinical purposes. ?? For additional information, please refer to http://education.[employer]/ faq/Trichomonastma (This link is being provided for information/ educational purposes only.) ?? 10/20/2021 4:29 PM EST us Shirin Newberry CNM LAB PATHOLOGY ORDERABLES Final Result [facility] [address] from Last 3 Months or Most Recently Relevant to Health Maintenance Insurance [facility] [place] [id number] Care Teams Safety Lead Relationship Specialty Start Date End Date Laure Salvador MD [address] [place] [address] [place] [address] PCP - General Family Medicine 11/14/18
--- OUTSIDE RECORDS SUMMARY | 2025-01-17 10:44 | XMS_ITS | Encounter Summary ---
Author Organization [employer] Address [address] [place] [address] Care Team Providers Care Pasting Machine Operator Name Role Phone Laure Salvador MD Primary Care Provider [phone] Encounter Details Date Type Department Care Team (Latest Contact Info) Description 01/17/2025 Travel Social History Tobacco Use Types Packs/Day Years Used Date Smoking Tobacco: Never Passive Smoke Exposure: Never Smokeless Tobacco: Never Depression Answer Date Recorded Patient Health Questionnaire-9 Score 0 01/19/2024 Patient Health Questionnaire-9 Score 0 01/19/2024 Last PHQ-9: Questionnaire Data Not on file 0 01/19/2024 Housing Stability Answer Date Recorded What is your housing situation today? I have adi urszula 01/19/[address] you li [...] documented as of this encounter Care Teams Pasting Machine Operator Relationship Specialty Start Date End Date Laure Salvador MD [address] [place] [address] PCP - General Family Medicine 11/14/18 documented as of this encounter
--- OUTSIDE RECORDS SUMMARY | 2025-01-17 10:44 | XMS_ITS | Encounter Summary ---
Author Organization [employer] Address [address] [place] [address] Care Team Providers Care Gyroscopic Engineering Technician Name Role Phone Laure Salvador MD Primary Care Provider [phone] Reason for Visit * Reason Comments Med Refill Encounter Details Date Type Department Care Team ([facility] st Contact Info) Description 04/13/2024 Refill [facility] [address] [place], [place] [phone] Laure Salvador MD [address] [place] [address] Social History Tobacco Use Types Packs/Day Years [...] documented in this encounter Plan of Treatment Not on file documented as of this encounter Visit Diagnoses Not on filedocumented in this encounter Additional Health Concerns Assessment Noted Time PHQ-9 Depression Total Score: 0 01/19/20 24 3:36 PM EST documented as of this encounter Care Teams Gyroscopic Engineering Technician Relationship Specialty Start Date End Date Laure Salvador MD [address] [place] [phone] PCP - General Family Medicine 11/14/18 documented as of this encounter
--- OUTSIDE RECORDS SUMMARY | 2025-01-17 10:45 | XMS_ITS | Encounter Summary ---
Author Organization [employer] [facility] Address [address] [place] [address] Care Team Providers Care Policy Analyst Name Role Phone Laure Salvador MD Primary Care Provider [phone] Encounter Details Date Type Department Care Team [...] on file documented as of this encounter Procedures Procedure [...] EST Narrative 12/24/2024 4:34 PM EST ? [facility] ?[address] ? [place] [address] ? Ultrasound Report ? Signed ? Patient: Sosa Brittani Bosch ?M ?? R#: [id number] ? : 1980 ?Acct:[id number] ? Age/Sex: 44 / F ?ADM Date: 12/24/24 ? Loc: HO.HMGCX ? Attending Dr: Erin Martinez CNM ? Ordering Physician: Erin Martinez CNM ?? Date of Service: 12/24/24 ?? Procedure(s): US pelvic and transvaginal ?? Accession Number(s): [id number] ? cc: Laure Salvador MD; Martinez,Erin CNM ? EXAMINATION: ? US PELVIS ? [...] DD/ 1531 ? TD/TT: 12/24/24 1546 ? Orthotic Fitter: ? Procedure Note Han, Image - 12/24/2024 [facility] [address] [place] [address] Ultrasound Report Signed Patient: Brittani Lin JONATAN R#: [id number] : 1980Acct:[id number] Age/Sex: 44 / FADM Date: 12/24/24 Loc: HO.HMGCX Attending Dr: Erin Martinez CNM Ordering Physician: Erin Martinez CNM Date of Service: 12/24/24 Procedure(s): US pelvic and transvaginal Accession Number(s): [id number] cc: Laure Salvador MD; Erin Martinez CNM [...] by: Joe Pabon MD 12/24/2024 04:31 PM EST Dictated By: Joe Pabon MD Signed By: <Electronically signed by Joe Pabon MD in OV> 12/24/24 1631 DD/ 1531 TD/TT: 12/24/24 1546 Orthotic Fitter: [facility] External Provider IMG US PROCEDURES Final Result * Culture, Urine, Routine (12/18/2024 1:45 PM EST) Urine Urine specimen obtained by clean catch procedure / Unknown 12/18/2024 1:45 PM EST 12/18/2024 3:35 PM EST Comment:UACC Narrative [facility] - 12/20/2024 10:23 AM EST Urine Culture Report Result Urine Culture 50,000 to 100,000 cfu/ml Urine Culture Mixed bacterial gillian characteristic of Urine Culture urogenital contamination. Specimen Source: Urine clean catch Generic External Data Provider LAB MICROBIOLOGY - GENERAL ORDERABLES Final Result Performing Organization Address City/[facility] Co de Phone Number [facility] [address] [place] [phone] * Bacterial Vaginosis (12/18/2024 1:45 PM EST) TRICHOMONAS VAGINALIS DETECTION BY PCR NOT DETECTED Not Detect [facility] BACTERIAL VAGINOSIS DETECTION BY PCR NEGATIVE Negative [facility] Comment:The BV organism targ ets [...] DETECTION BY PCR NOT DETECTED Not Detect [facility] Zaida glab krusei PCR NOT DETECTED Not Detect [facility] 12/18/2024 1:45 PM EST 12/18/2024 3:35 PM EST Generic External Data Provider LAB MICROBIOLOGY - GENERAL ORDERABLES Final Result Performing Organization Address [facility] Co de Phone Number [facility] [address] [place] [phone] documented in this encounter Visit Diagnoses Not on filedocumented in this encounter Additional Health Concerns Assessment Noted Time PHQ-9 Depression Total Score: 0 01/19/20 24 3:36 PM EST documented as of this encounter Care Teams Policy Analyst Relationship Specialty Start Date End Date Laure Salvador MD [address] [place] [address] PCP - General Family Medicine 11/14/18 documented as of this encounter
--- OUTSIDE RECORDS SUMMARY | 2025-01-17 10:45 | XMS_ITS | Encounter Summary ---
Author Organization [facility] Address [address] [place] [address] [address] [place] [address] Care Team Providers Care Seed Cleaner Name Role Phone Laure Salvador MD Primary Care Provider [phone] Reason for Referral * Consultation (Routine) - Authorized Specialty Diagnoses / Procedures Referred By Se delgado Referred To Contact Dermatology / Family Medicine Diagnoses Multiple pigmented nevi Laure Salvador MD [address] [place] [address] Phone: tel: fax: Danica Ponce MD [address] [place] [address] Phone: tel: fax: Referral ID Status Reason Start Date Expiration Date Visits Requested Visits Authorized [id number] Authorized Consult and Treat 01/17/2025 01/17/2026 1 1 * Consultation (Routine) - Authorized Specialty Diagnoses / Procedures Referred By Contada t Referred To Contact Gastroenterology Diagnoses Colon cancer screening Laure Salvador MD [address] [place] [address] Phone: tel: fax: Raymond Simon MD [address] [place] [address] Phone: tel: fax: Referral ID Status Reason Start Date Expiration Date Visits Requested Visits Authorized [id number] Authorized Specialty Services Required 01/17/2025 01/17/2026 1 1 Encounter Details Date Type Department Care Team (Latest Contact Info) Description 01/17/2025 9:00 AM EST Office Visit [facility] MED & PEDS [address] [place] [address] Laure Salvador MD [address] [place] [address] Colon cancer screening (Primary Dx); Vitamin D deficiency; Moderate mixed hyperlipidemia not requiring statin therapy; Multiple pigmented nevi Social History Tobacco Use Types Packs/Day Years [...] AM EDT documented as of this encounter Last Filed Vital Signs Vital Sign Reading [...] Mass Index 24.3 01/17/2025 9:11 AM EST documented in this encounter Progress Notes * Laure Salvador MD - 01/17/2025 9:00 AM EST Subjective Patient ID: Brittani Bosch is a 44 y.o. female who presents for No chief complaint on file.. Brittani is a healthy 44 y/o female patient of mine on no meds here for follow up vitamin D deficiencyand mild dyslipidemia. Wants repeat labs since she has changed her diet since last january of last year. No other issues or complaints.Needs referral for her screening colonoscopy and a derm referral for skin eval. Review of Systems Constitutional: Negative for activity change, chills, fever and unexpected weight change. Respiratory: Negative for cough, shortness of breath and wheezing. Cardiovascular: Negative for chest pain, palpitations and leg swelling. Gastrointestinal: Negative for abdominal pain and blood in stool. Endocrine: Negative for polydipsia and polyuria. Genitourinary: Negative for decreased urine volume, difficulty urinating, dysuria and hematuria. Musculoskeletal: Negative for arthralgias and gait problem. Skin: Negative for color change and rash. Neurological: Negative for dizziness and headaches. Hematological: Negative for adenopathy. Psychiatric/Behavioral: Negative for dysphoric mood, hallucinations, sleep disturbance and suicidalideas. The patient is not nervous/anxious. Objective BP 98/63 (BP Location: Left arm, Patient Position: Sitting, BP Cuff Size: Adult) Pulse 60 Temp 97.7 ??F (36.5 ??C) (Oral) Resp 16 Ht 5' 5 (1.651 m) Wt 146 lb (66.2 kg) SpO2 99% BMI 24.30 kg/m?? Physical Exam Vitals reviewed. Constitutional: General: She is not in acute distress. Appearance: Normal appearance. She is not ill-appearing. HENT: Head: Normocephalic. Right Ear: Tympanic membrane and ear canal normal. Left Ear: Tympanic membrane and ear canal normal. Nose: Nose normal. Mouth/Throat: Mouth: Mucous membranes are moist. Pharynx: No oropharyngeal exudate or posterior oropharyngeal erythema. Eyes: Extraocular Movements: Extraocular movements intact. Conjunctiva/sclera: Conjunctivae normal. Pupils: Pupils are equal, round, and reactive to light. Cardiovascular: Rate and Rhythm: Normal rate and regular rhythm. Pulses: Normal pulses. Heart sounds: Normal heart sounds. Pulmonary: Effort: Pulmonary effort is normal. No respiratory distress. Breath sounds: Normal breath sounds. Abdominal: Palpations: Abdomen is soft. Musculoskeletal: General: Normal range of motion. Cervical back: Normal range of motion. Skin: General: Skin is warm. Capillary Refill: Capillary refill takes less than 2 seconds. Neurological: General: No focal deficit present. Mental Status: She is alert and oriented to person, place, and time. Mental status is at baseline. Psychiatric: Mood and Affect: Mood normal. Behavior: Behavior normal. Thought Content: Thought content normal. Judgment: Judgment normal. Assessment/Plan Diagnoses and all orders for this visit: Colon cancer screening Comments: Referral to [facility] done today. No GI bleed or blood in stool or colon cancer in family. Orders: - Referral to Gastroenterology; Future Vitamin D deficiency Comments: Recheck levels today.replacement dose change if needed. Orders: - Vitamin D, 25-Hydroxy, Total, Immunoassay; Future Moderate mixed hyperlipidemia not requiring statin therapy Comments: Recheck lipids today since she is fasting. Not on statin due to low risk ASCVD.Has changed diet since last year. Orders: - Lipid Panel, Standard; Future Multiple pigmented nevi Comments: Derm referral to [facility] done today for eval.Wants some of them removed if possible. Orders: - Referral to [facility] Derm Skin; Future documented in this encounter Plan of Treatment Scheduled Orders Name Type Priority Associated Diagnoses Orde r Schedule Lipid Panel, Standard Lab Routine Moderate mixed hyperlipidemia not requiring statin therapy Expected: 01/17/2025 (Approximate), Expires: 01/17/2026 Vitamin D, 25-Hydroxy, Total, Immunoassay Lab Routine Vitamin D deficiency Expected: 01/17/2025 (Approximate), Expires: 01/17/2026 Scheduled Referrals Name Type Priority Associated Diagnoses Order Schedule Referral to Gastroenterology Outpatient Referral Routine Colon cancer screening Expected: 01/17/2025 (Approximate), Expires: 01/17/2026 Referral to [facility] Derm Skin Outpatient Referral Routine Multiple pigmented nevi Expected: 01/17/2025 (Approximate), Expires: 01/17/2026 documented as of this encounter Visit Diagnoses Diagnosis Colon cancer screening- Primary Special screening for malignant neoplasms, colon Vitamin D deficiency Moderate mixed hyperlipidemia not requiring statin therapy Multiple pigmented nevi documented in this encounter Additional Health Concerns Assessment Noted Time PHQ-9 Depression Total Score: 0 01/19/20 24 3:36 PM EST documented as of this encounter Care Teams Seed Cleaner Relationship Specialty Start Date End Date Laure Salvador MD [address] [place] [id number] PCP - General Family Medicine 11/14/18 documented as of this encounter
--- OUTSIDE RECORDS SUMMARY | 2025-01-17 10:45 | XMS_ITS | Encounter Summary ---
Author Organization [facility] Address [address] [place] [address] [address] [place] [address] Care Team Providers Care Compensation And Benefits Administrator Name Role Phone Laure Salvador MD Primary Care Provider [phone] Encounter Details Date Type Department Care Team ([facility] st Contact Info) Description 03/28/2023 Abstract [facility] CHC MED & PEDS [address] [place] [address] Laure Salvador MD [address] [place] [address] Social History Tobacco Use Types Packs/Day Years [...] on filedocumented in this encounter Care Teams Compensation And Benefits Administrator Relationship Specialty Start Date End Date Laure Salvador MD [address] [place] [address] PCP - General Family Medicine 11/14/18 documented as of this encounter
[2025-01-17 14:52] LABS: Cholesterol 230 mg/dL (<200); HDL Cholesterol 90 mg/dL (>40); LDL Cholesterol Calculated 126 mg/dL (<100); Triglycerides 70 mg/dL (<150)
[2025-01-17 15:12] LABS: Vitamin D 25-OH Total 47.9 ng/mL (>30)
== END 2025-01-17 09:27 | disposition home or self-care (01) ==
LOC: HO.CHCLDS 09:26
PROVIDERS: Visit Provider Pediatrics
DX: Z71.2 Person consulting for explanation of examination or test findings (principal); N70.11 Chronic salpingitis; E78.2 Mixed hyperlipidemia; E55.9 Vitamin D deficiency, unspecified
CPT/HCPCS: 36415; 80061; 82306; 99212

== ENCOUNTER 2025-01-17 14:36 | Outpatient (AMB) | payer OTHER, SELFPAY ==
--- NOTE | 2025-01-17 14:44 | A.OFFVIS_ITS ---
Intake Visit Reasons: Ultrasound follow up Physician Anesthesiologist: Physician Anesthesiologist Present Allergies No Known Allergies Allergy (Verified 01/17/25 14:47) Is last menstrual period known: Yes Last menstrual period: 01/17/25 HPI Comments Details: Patient is here today for a follow up pelvic ultrasound. History of hydrosalpinx, and previously concerned with vaginal discharge changes-cultures were negative. She denies any pelvic pain, and no abnormal discharge today. [facility] Medical History (Updated 01/17/25 @ 15:17 by Erin Martinez CNM) Hydrosalpinx Cyst of left breast Breast pain Frequency of urination Pelvic pain Hemorrhagic cyst of right ovary HSV-2 (herpes simplex virus 2) infection Benign breast cyst in female Surgical History H/O ovarian cystectomy Hx of tubal ligation Family History Maternal Aunt History of breast cancer Paternal Aunt History of breast cancer Mother HTN (hypertension) Social History Household Members: Spouse and Children Housing: House Alcohol intake: never Patient Tobacco Use Status: Never used Tobacco Current occupational status: employed 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 Sexual orientation: Straight/Heterosexual Gender identity: Female Female Reproductive History Menstrual Age of Menarche: 9 Date of last menstrual period: 01/17/25 Review of Systems Const All systems reviewed & are unremarkable except as noted in HPI and below Endo Reports no additional complaints Physical Exam Const General: cooperative, healthy appearing and no acute distress Psych Appearance: well kempt Attitude: cooperative Thought process: Normal thought process present Results Reviewed Results Reviewed: [facility] [address] [place] [address] [place] [address] Ultrasound Report Signed Patient: Brittani Lin MR#: [id number] : 1980 Acct:[id number] Age/Sex: 44 / F ADM Date: 12/24/24 Loc: HO.[email or web address] Attending Dr: Erin Martinez CNM Ordering Physician: Eirn Martinez CNM Date of Service: 12/24/24 Procedure(s): US pelvic and transvaginal Accession Number(s): [id number] cc: Laure Salvador MD; Erin Martinez CNM~ EXAMINATION: US PELVIS CLINICAL INFORMATION: Pelvic pain. 44 year female. History of tubal ligation and ovarian cystectomy. COMPARISON: 03/14/2024. TECHNIQUE: Ultrasound of the pelvis is performed using both transabdominal and transvaginal transducers along with Doppler. Transvaginal imaging is performed due to inadequate visualization transabdominally. FINDINGS: Uterus: The uterus is anteverted and measures 9.2 x 4.3 x 6.5 cm. Normal-appearing cervix. The double wall endometrial thickness is 4 mm. It is uniform. The uterus is smooth in contour and has normal myometrial echogenicity. No visible fibroid. Adnexa: Both ovaries are visualized. There is normal color flow to the adnexa. There is no ovarian torsion. There is no pelvic ascites or fluid collection. There is a left small hydrosalpinx, measuring 5 mm in diameter, improved from prior exams. Right ovary measures 4.1 x 2.3 x 1.6 cm. Volume = 7.8 mL. Normal sonographic appearance. Left ovary measures 3.4 x 1.9 x 3.1 cm. Volume = 10.8 mL. Normal sonographic appearance. US/US pelvic and transvaginal IMPRESSION: 1. Normal uterus and endometrium. 2. Small left-sided hydrosalpinx, smaller as compared with priors. 3. Normal ovaries bilaterally. 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 Plan Discussed: Ultrasound findings-hydrosalpinx smaller than previous scan. IMPRESSION: 1. Normal uterus and endometrium. 2. Small left-sided hydrosalpinx, smaller as compared with priors. 3. Normal ovaries bilaterally. Medications: New valacyclovir (Valtrex) Take with onset of symptoms for 3 days 500 mg PO BID 3 days 90 tabs 0RF acyclovir 5% (Zovirax) 1 appl topical 6XD 7 days PRN 30 grams 2RF prn Coding Level of Care Code Est Pt Level 3 (49084) Diagnoses Encounter to discuss test results Z71.2 Hydrosalpinx N70.11
--- OUTSIDE RECORDS SUMMARY | 2025-01-17 17:59 | XMS_ITS | Clinical Summary ---
Author Organization [facility] Address [address] 7[address] [place] [address] Care Team Providers Care Finance Lead Name Role Phone Laure Salvador MD Primary Care Provider [phone] Allergies No known active allergies Medications ergocalciferol (Vitamin D2) 1.25 MG (81555 UT) capsule Take 1 capsule (1.25 mg) by mouth 1 (one) time per week. 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 Travel 12/18/2024 Orders Only GENERIC EXTERNAL DATA DEPARTMENT Provider, Generic External Data 11/15/2024 Orders Only [facility] [address] [place] [address] Laure Salvador MD from Last 3 Months [...] Procedure Name Priority Date/Time Associated Diagnosis Comments VITAMIN D,25-OH,TOTAL,IA Routine 01/17/2025 9:27 AM EST Vitamin D deficiency LIPID PANEL, STANDARD Routine 01/17/2025 9:27 AM EST Moderate mixed hyperlipidemia not requiring statin therapy US PELVIS TRANSVAGINAL Routine 12/24/2024 3:31 PM EST CULTURE, URINE, ROUTINE Routine [...] Recently Relevant to Health Maintenance Results * Vitamin D, 25-Hydroxy, Total, Immunoassay (01/17/2025 9:27 AM EST) Vitamin D 25-OH Total 47.9 >30 ng/mL [facility] Comment:Health Based Referen ce Values*< 20 ng/mL Wmcljpflf28-12 ng/mL Insufficient> 30 ng/mL Sufficient*Jeremiah DAMON. N Engl J Med. 2007;357:266-280Care must be taken in interpreting Vitamin D results fromdifferent laboratories and methodologies. Published datademonstrated that results from patients undergoinghemodialysis may show a negative bias when tested withvarious automated 25-OH vitamin D assays when compared toLC-MS/MS.When testing samples from patients whose predominant form ofVitamin D is Vitamin D2, such as patients receiving VitaminD2 supplementation, results that are subtherapeutic shouldbe confirmed with another method such as LC-MS/MS. Blood Venous blood specimen / Unknown 01/17/2025 9:27 AM EST 01/17/2025 2:12 PM EST us Laure Salvador MD LAB BLOOD ORDERABLES Final Re sult Performing Organization Address [facility] de Phone Number [facility] [address] [place] [phone] * (ABNORMAL) Lipid Panel, Standard (01/17/2025 9:27 AM EST) Triglycerides 70 <150 mg/dL [facility] Comment:Desirable Triglyceri de: less than 150 mg/dLBorderline High Triglyceride 150-199 mg/dLHigh Triglyceride: 200-499 mg/dLVery High Triglyceride: greater than or equal to 5OO mg/dL Cholesterol 230(H) <200 mg/dL [facility] Comment:Desirable Cholestero l: less than 200 mg/dLBorderline High Cholesterol: 200-239 mg/dLHigh Cholesterol: greater than 239 mg/dL LDL Cholesterol Calculated 126(H) <100 mg/dL [facility] Comment:Desirable LDL: less than 100 mg/dLNear Optimal/Above Optimal LDL: 110- 129 mg/dLBorderline High LDL: 130-159 mg/dLHigh LDL: 160-189 mg/dLVery High LDL: greater than or equal to 190 mg/dL HDL Cholesterol 90 >40 mg/dL [facility] Comment:Desirable HDL: great er than 40 mg/dL Note: This HDL assay may give artificially low results in patients with liver disease. Blood Venous blood specimen / Unknown 01/17/2025 9:27 AM EST 01/17/2025 2:12 PM EST us Laure Salvador MD LAB BLOOD ORDERABLES Final Re sult Performing Organization Address City/[facility]/ZIP Co de Phone Number [facility] [address] [place] [address] [phone] * US Pelvis Transvaginal (12/24/2024 3:31 PM EST) Anatomical Region Laterality Modality Pelvis Ultrasound 12/24/2024 3:31 PM EST Narrative 12/24/2024 4:34 PM EST ? [facility] ?[address] [facility] . ? [place] [address] ? Ultrasound Report ? Signed ? Patient: Brittani Lin L ?M ?? R#: [id number] ? : 1980 ?Acct:[id number] ? Age/Sex: 44 / F ?ADM Date: 12/24/24 ? Loc: HO.HMGCX ? Attending Dr: Erin Martinez CNM ? Ordering Physician: Erin Martinez CNM ?? Date of Service: 12/24/24 ?? Procedure(s): US pelvic and transvaginal ?? Accession Number(s): [id number] ? cc: Laure Salvador MD; Erin Martinez [...] DD/ 1531 ? TD/TT: 12/24/24 1546 ? Regional Hr Manager: ? Procedure Note Mago Short - 12/24/2024 [facility] [address] [place] [address] [place] [address] Ultrasound Report Signed Patient: Brittani Lin R#: [id number] : 1980Acct:[id number] Age/Sex: 44 / FADM Date: 12/24/24 Loc: HO.HMGCX Attending Dr: Erin Martinez CNM Ordering Physician: Erin Martinez CNM Date of Service: 12/24/24 Procedure(s): US pelvic and transvaginal Accession Number(s): [id number] cc: Laure Salvador MD; Erin Martinez CNM [...] 12/24/24 1631 DD/ 1531 TD/TT: 12/24/24 1546 Regional Hr Manager: [facility] External Provider IMG US PROCEDURES Final Result * Bacterial Vaginosis (12/18/2024 1:45 PM EST) TRICHOMONAS VAGINALIS DETECTION BY PCR NOT DETECTED Not Detect [facility] BACTERIAL VAGINOSIS DETECTION BY PCR NEGATIVE Negative [facility] Comment:The BV organism targ ets [...] DETECTION BY PCR NOT DETECTED Not Detect [facility] Zaida glab krusei PCR NOT DETECTED Not Detect [facility] 12/18/2024 1:45 PM EST 12/18/2024 3:35 PM EST Generic External Data Provider LAB MICROBIOLOGY - GENERAL ORDERABLES Final Result Performing Organization Address [facility] de Phone Number [facility] [address] [place] [address] [phone] * Culture, Urine, Routine (12/18/2024 1:45 PM EST) Urine Urine specimen obtained by clean catch procedure / Unknown 12/18/2024 1:45 PM EST 12/18/2024 3:35 PM EST Comment:UACC Narrative [facility] - 12/20/2024 10:23 AM EST Urine Culture Report Result Urine Culture 50,000 to 100,000 cfu/ml Urine Culture Mixed bacterial gillian characteristic of Urine Culture urogenital contamination. Specimen Source: Urine clean catch Generic External Data Provider LAB MICROBIOLOGY - GENERAL ORDERABLES Final Result Performing Organization Address [facility] de Phone Number [facility] [address] [place] [address] [phone] * BI US Breast Limited Left (11/15/2024 2:30 PM EST) Anatomical Region Laterality Modality Breast Left Ultrasound 11/15/2024 2:30 PM EST Narrative 11/15/2024 2:58 PM EST ? [facility] [place] ? [address] ?[place] [address] ? Ultrasound Report ? Signed ? Patient: Ciprianoi Hiro,Claudia ?M ?? R#: [id number] ? : 1980 ?Acct:[id number] ? Age/Sex: 44 / F ?ADM Date: 01/02/25 ? Loc: HO.MAMMO ? Attending Dr: Laure Salvador MD ? Ordering Physician: Laure Salvador MD ?? Date of Service: 11/15/24 ?? Procedure(s): US breast LT limited mamm only ?? Accession Number(s): [id number] ? cc: Laure Salvador MD ? EXAMINATION: [...] by Skye Doan, DO in OV> ? 11/15/241455 ? DD/ 1430 ? TD/TT: 11/15/241451 ? Regional Hr Manager: ? Procedure Note Donotuseinterpreter, Image - 11/15/2024 [facility] [address] [place], [place] [address] Ultrasound Report Signed Patient: Brittani Lin LM R#: [id number] : 1980Acct:[id number] Age/Sex: 44 / FADM Date: 11/15/24 Loc: HO.MAMMO Attending Dr: Luare Salvador MD Ordering Physician: Laure Salvador MD Date of Service: 11/15/24 Procedure(s): US breast LT limited mamm only Accession Number(s): [id number] cc: Laure Salvador MD EXAMINATION: MM DIAGNOSTIC [...] 11/15/24 1456 DD/ 1430 TD/TT: 11/15/24 1452 Regional Hr Manager: us Laure Salvador MD IMDean US PROCEDURES Edited Resu lt - Final * BI Mammogram Diagnostic Tomosynthesis Bilateral (11/15/2024 2:00 PM EST) Anatomical Region Laterality Modality Breast Bilateral Mammography 11/15/2024 2:00 PM EST Narrative 11/15/2024 2:58 PM EST ? [facility] ? [address] ?[place] [address] ? Mammography Report ? Signed ? Patient: Brittani Lin ?M ?? R#: [id number] ? : 1980 ?Acct:[id number] ? Age/Sex: 44 / F ?ADM Date: 11/15/ ? Loc: HO.MAMMO ? Attending Dr: Laure Salvador MD ? Ordering Physician: Erin Martinez CNM ?Results: 2Beni ?? gn Findings ? Date of Service: 11/15/24 ?Follow Up: 1 Year From Orig ?? inal Mammogram ? Procedure(s): MM tomosynthesis diagnostic BI ?? Accession Number(s): [id number] ? cc: Laure Salvador MD; Erin Martinez [...] DD/ 1400 ? TD/TT: 11/15/24 1430 ? Regional Hr Manager: ? Procedure Note Donotuseinterpreter, Image - 11/15/2024 [facility] [address] [place], [place] [address] Mammography Report Signed Patient: Brittani Lin LM R#: [id number] : 1980Acct:[id number] Age/Sex: 44 / FADM Date: 11/15/24 Loc: HO.MAMMO Attending Dr: Laure Salvador MD Ordering Physician: Erin MartinezMResults: 2Beni gn Findings Date of Service: 11/15/24Follow Up: 1 Year From Orig inal Mammogram Procedure(s): MM tomosynthesis diagnostic BI Accession Number(s): [id number] cc: Luare Salvador MD; Erin Martinez CNM EXAMINATION: MM [...] Skye Doan DO 11/15/2024 02:56 PM EST Workstation: [id number] Dictated By: Skye Doan DO Signed By: <Electronically signed by Skye Doan DO in OV> 11/15/24 1456 DD/ 1400 TD/TT: 11/15/24 1430 Regional Hr Manager: [facility] External Provider IMG BI PROCEDURES Edited Result - Final * THINPREP TIS PAP AND HPV mRNA E6/E7, CT/NG, TRICH (10/20/2021 4:29 PM EST) Chlamydia trachomatis RNA, TMA, Urogenital NOT DETECTED NOT DETECTED [facility] Clinical Information: Z113 Z124 [facility] COMMENT SEE COMMENT [facility] Comment: The analytical performance characteristics of this assay, when used to test SurePath(TM) specimens have been determined by [employer]. The modifications have not been cleared or approved by the FDA. This assay has been validated pursuant to the CLIA regulations and is used for clinical purposes. ?? For additional information, please refer to https://education.3CLogic/faq/JXN980 (This link is being provided for information/ [...] has been evaluated with computer assisted technology. [employer] Insurance Risk Surveyor: SEE COMMENT [facility] Comment: ED, CT(ASCP) CT screening location: ?? [facility] ?? [address] [place] [address] ?? [place], [place] [address] HPV nRNA E6/E7 Not Detected Not Detected [facility] Comment: Methodology: Front Desk Manager-Mediated Amplification This assay detects E6/E7 viral messenger RNA (mRNA) from 14 high-risk HPV types (16,18,31,33,35,39,45,51,52,56,58,59,66,68). ? The analytical performance characteristics of this assay have been determined by [employer]. The modifications have not been cleared or approved by the FDA. This assay has been validated pursuant to the CLIA regulations and is used for clinical purposes. ?? For additional information, please refer to http://[employer].3CLogic/faq/ABB340v9 (This link if provided for information/ educational [...] of this assay have been determined by [employer]. The modifications have not been cleared or approved by the FDA. This assay has been validated pursuant to the CLIA regulations and is used for clinical purposes. ?? For additional information, please refer to http://[employer].3CLogic/ faq/Trichomonastma (This link is being provided for information/ educational purposes only.) ?? 10/20/2021 4:29 PM EST us Shirin Newberry CNM LAB PATHOLOGY ORDERABLES Final Result [facility] [address] from Last 3 Months or Most Recently Relevant to Health Maintenance Insurance [facility] Care Teams Finance Lead Relationship Specialty Start Date End Date Laure Salvador MD [address] [place] [address] [place] [address] PCP - General Family Medicine 11/14/18
--- OUTSIDE RECORDS SUMMARY | 2025-01-17 17:59 | XMS_ITS | Encounter Summary ---
Author Organization [employer] Address [address] [facility] [address] [facility] 7t [place] [address] Care Team Providers Care Data Processing Equipment Repairer Name Role Phone Laure Salvador MD Primary Care Provider [phone] Reason for Visit * Reason Comments Med Refill Encounter Details Date Type Department Care Team ([facility] st Contact Info) Description 04/13/2024 Refill [facility] PEDS [address] [place], [place] [phone] Laure Salvador MD [address] [place] [address] Social History Tobacco Use Types Packs/Day Years [...] documented as of this encounter Care Teams Data Processing Equipment Repairer Relationship Specialty Start Date End Date Laure Salvador MD [address] [place] [address] PCP - General Family Medicine 11/14/18 documented as of this encounter
--- OUTSIDE RECORDS SUMMARY | 2025-01-17 17:59 | XMS_ITS | Encounter Summary ---
Author Organization [employer] Address [address] [facility] 7[address] [place] [address] Care Team Providers Care Collar Baster Jumpbasting Name Role Phone Laure Salvador MD Primary Care Provider [phone] Reason for Visit * Reason Comments Med Refill Encounter Details Date Type Department Care Team ([facility] st Contact Info) Description 04/22/2024 Refill [facility] [address] [place], [place] [phone] Laure Salvador MD [address] [place] [address] Social History Tobacco Use Types Packs/Day Years [...] documented as of this encounter Care Teams Collar Baster Jumpbasting Relationship Specialty Start Date End Date Laure Salvador MD [address] [place] [address] PCP - General Family Medicine 11/14/18 documented as of this encounter
--- OUTSIDE RECORDS SUMMARY | 2025-01-17 18:00 | XMS_ITS | Encounter Summary ---
Author Organization [employer] [facility] Address [address] 7[address] [place] [address] Care Team Providers Care Jig Grinder Set Up Operator Name Role Phone Laure Salvador MD Primary Care Provider [phone] Encounter Details Date Type Department Care Team [...] EST Narrative 12/24/2024 4:34 PM EST ? [facility] ?[address] ? [place] [address] ? Ultrasound Report ? Signed ? Patient: Sosa Brittani Bosch ?M ?? R#: [id number] ? : 1980 ?Acct:[id number] ? Age/Sex: 44 / F ?ADM Date: 12/24/24 ? Loc: HO.HMGCX ? Attending Dr: Erin Martinez CNM ? Ordering Physician: Erin Martinez CNM ?? Date of Service: 12/24/24 ?? Procedure(s): US pelvic and transvaginal ?? Accession Number(s): [id number] ? cc: Laure Salvador MD; Martinez,Erin CNM [...] DD/ 1531 ? TD/TT: 12/24/24 1546 ? Landscape And Yardwork Laborer: ? Procedure Note Han, Image - 12/24/2024 [facility] Care [address] [place] [address] Ultrasound Report Signed Patient: Brittani Lin JONATAN R#: [id number] : 1980Acct:[id number] Age/Sex: 44 / FADM Date: 12/24/24 Loc: HO.HMGCX Attending Dr: Erin Martinez CNM Ordering Physician: Erin Martinez CNM Date of Service: 12/24/24 Procedure(s): US pelvic and transvaginal Accession Number(s): [id number] cc: Laure Salvador MD; Erin Martinez CNM [...] 12/24/24 1631 DD/ 1531 TD/TT: 12/24/24 1546 Landscape And Yardwork Laborer: [facility] External Provider IMG US PROCEDURES Final Result * Culture, Urine, Routine (12/18/2024 1:45 PM EST) Urine Urine specimen obtained by clean catch procedure / Unknown 12/18/2024 1:45 PM EST 12/18/2024 3:35 PM EST Comment:UACC Narrative [facility] - 12/20/2024 10:23 AM EST Urine Culture Report Result Urine Culture 50,000 to 100,000 cfu/ml Urine Culture Mixed bacterial gillian characteristic of Urine Culture urogenital contamination. Specimen Source: Urine clean catch Generic External Data Provider LAB MICROBIOLOGY - GENERAL ORDERABLES Final Result Performing Organization Address City/[facility] Co de Phone Number [facility] [address] [place] [phone] * Bacterial Vaginosis (12/18/2024 1:45 PM EST) TRICHOMONAS VAGINALIS DETECTION BY PCR NOT DETECTED Not Detect [facility] BACTERIAL VAGINOSIS DETECTION BY PCR NEGATIVE Negative [facility] Comment:The BV organism targ ets [...] DETECTION BY PCR NOT DETECTED Not Detect [facility] Zaida glab krusei PCR NOT DETECTED Not Detect [facility] 12/18/2024 1:45 PM EST 12/18/2024 3:35 PM EST Generic External Data Provider LAB MICROBIOLOGY - GENERAL ORDERABLES Final Result Performing Organization Address [facility] Co de Phone Number [facility] [address] [place] [phone] documented in this encounter Visit Diagnoses Not on filedocumented in this encounter Additional Health Concerns Assessment Noted Time PHQ-9 Depression Total Score: 0 01/19/20 24 3:36 PM EST documented as of this encounter Care Teams Jig Grinder Set Up Operator Relationship Specialty Start Date End Date Laure Salvador MD [address] [place] [address] PCP - General Family Medicine 11/14/18 documented as of this encounter
--- OUTSIDE RECORDS SUMMARY | 2025-01-17 18:00 | XMS_ITS | Encounter Summary ---
Author Organization [employer] Address [address] [facility] [address] 7[address] [place] [address] Care Team Providers Care Supervisor Print Line Name Role Phone Laure Salvador MD Primary Care Provider [phone] Encounter Details Date Type Department Care Team [...] documented as of this encounter Care Teams Supervisor Print Line Relationship Specialty Start Date End Date Laure Salvador MD [address] [place] [address] PCP - General Family Medicine 11/14/18 documented as of this encounter
--- OUTSIDE RECORDS SUMMARY | 2025-01-17 18:00 | XMS_ITS | Encounter Summary ---
Author Organization [employer] [facility] Address [address] [place] [address] [address] [place] [address] Care Team Providers Care Multifold Operator Name Role Phone Laure Salvador MD Primary Care Provider [phone] Reason for Referral * Consultation (Routine) - Authorized Specialty Diagnoses / Procedures Referred By Se delgado Referred To Contact Dermatology / Family Medicine Diagnoses Multiple pigmented nevi Laure Salvador MD [address] [place] [address] Phone: tel: fax: Danica Ponce MD [address] [place] [address] Phone: tel: fax: Referral ID Status Reason Start Date Expiration Date Visits Requested Visits Authorized [id number] Authorized Consult and Treat 01/17/2025 01/17/2026 1 1 * Consultation (Routine) - Authorized Specialty Diagnoses / Procedures Referred By Contada t Referred To Contact Gastroenterology Diagnoses Colon cancer screening Laure Salvador MD [address] [place] [address] Phone: tel: fax: Raymond Simon MD [address] [place] [phone] Phone: tel: fax: Referral ID Status Reason Start Date Expiration Date Visits Requested Visits Authorized [id number] Authorized Specialty Services Required 01/17/2025 01/17/2026 1 1 Encounter Details Date Type Department Care Team (Latest Contact Info) Description 01/17/2025 9:00 AM EST Office Visit [facility] MED & PEDS [address] [place] [address] Laure Salvador MD [address] [place] [address] Colon cancer screening (Primary Dx); Vitamin D [...] visit: Colon cancer screening Comments: [facility] done today. No GI bleed or [...] Multiple pigmented nevi Comments: Derm referral to [facility] done today for eval.Wants some of them removed if possible. Orders: - Referral to [facility] Derm Skin; Future documented in this encounter Plan of Treatment Scheduled Referrals Name Type Priority Associated Diagnoses Order Schedule Referral to Gastroenterology Outpatient Referral Routine Colon cancer screening Expected: 01/17/2025 (Approximate), Expires: 01/17/2026 Referral to [facility] Derm Skin Outpatient Referral Routine Multiple pigmented nevi Expected: 01/17/2025 (Approximate), Expires: 01/17/2026 documented as of this encounter Procedures Procedure Name Priority Date/Time Associated Diagnosis Comments VITAMIN D,25-OH,TOTAL,IA Routine 01/17/2025 9:27 AM EST Vitamin D deficiency LIPID PANEL, STANDARD Routine 01/17/2025 9:27 AM EST Moderate mixed hyperlipidemia not requiring statin therapy documented in this encounter Results * Vitamin D, 25-Hydroxy, Total, Immunoassay (01/17/2025 9:27 AM EST) Vitamin D 25-OH Total 47.9 >30 ng/mL [facility] Comment:Health Based Referen ce Values*< 20 ng/mL Juwcmkzsr43-53 ng/mL Insufficient> 30 ng/mL Sufficient*Jeremiah DAMON. N [...] MD LAB BLOOD ORDERABLES Final Re sult [facility] [address] [place] [phone] * (ABNORMAL) Lipid Panel, Standard (01/17/2025 9:27 AM EST) Triglycerides 70 <150 mg/dL [facility] Comment:Desirable Triglyceri de: less than 150 mg/dLBorderline High Triglyceride 150-199 mg/dLHigh Triglyceride: 200-499 mg/dLVery High Triglyceride: greater than or equal to 5OO mg/dL Cholesterol 230(H) <200 mg/dL [facility] Comment:Desirable Cholestero l: less than 200 mg/dLBorderline High Cholesterol: 200-239 mg/dLHigh Cholesterol: greater than 239 mg/dL LDL Cholesterol Calculated 126(H) <100 mg/dL [facility] Comment:Desirable LDL: less than 100 mg/dLNear Optimal/Above Optimal LDL: 110- 129 mg/dLBorderline High LDL: 130-159 mg/dLHigh LDL: 160-189 mg/dLVery High LDL: greater than or equal to 190 mg/dL HDL Cholesterol 90 >40 mg/dL [facility] Comment:Desirable HDL: great er than 40 mg/dL Note: This HDL assay may give artificially low results in patients with liver disease. Blood Venous blood specimen / Unknown 01/17/2025 9:27 AM EST 01/17/2025 2:12 PM EST us Laure Salvador MD LAB BLOOD ORDERABLES Final Re sult [facility] [address] [place] [address] [phone] documented in this encounter Visit Diagnoses Diagnosis Colon cancer screening- Primary Special screening for malignant neoplasms, colon Vitamin D deficiency Moderate mixed hyperlipidemia not requiring statin therapy Multiple pigmented nevi documented in this encounter Additional Health Concerns Assessment Noted Time PHQ-9 Depression Total Score: 0 01/19/20 24 3:36 PM EST documented as of this encounter Care Teams Multifold Operator Relationship Specialty Start Date End Date Laure Salvador MD [address] [place] [phone] PCP - General Family Medicine 11/14/18 documented as of this encounter
--- OUTSIDE RECORDS SUMMARY | 2025-01-17 18:00 | XMS_ITS | Encounter Summary ---
Author Organization [employer] [facility] Address [address] [place] [address] 7 [place] [address] Care Team Providers Care Paper Guillotine Operator Name Role Phone Laure Salvador MD Primary Care Provider [phone] Encounter Details Date Type Department Care Team ([facility] st Contact Info) Description 03/28/2023 Abstract [facility] MED [facility] PEDS [address] [place] [address] Laure Salvador MD [address] [place] [address] Social History Tobacco Use Types Packs/Day Years [...] on filedocumented in this encounter Care Teams Paper Guillotine Operator Relationship Specialty Start Date End Date Laure Salvador MD [address] [place] [address] PCP - General Family Medicine 11/14/18 documented as of this encounter
== END 2025-01-17 16:23 | disposition home or self-care (01) ==
LOC: HO.HWS 14:36
PROVIDERS: PCP Pediatrics; Visit Provider Advanced Practice Midwife
DX: Z71.2 Person consulting for explanation of examination or test findings (principal); N70.11 Chronic salpingitis
CPT/HCPCS: 99213

== ENCOUNTER 2025-04-04 14:00 | Outpatient (REF) | payer OTHER, SELFPAY ==
[2025-04-04 15:02] LABS: MANUAL DIFF FLAG NO
[2025-04-04 15:31] LABS: Basophils Absolute Auto 0.1 X10*3/uL (0.0-0.2); Basophils Percent Auto 0.7 % (0-2); Eosinophils Absolute Auto 0.1 X10*3/uL (0.0-0.4); Eosinophils Percent Auto 1.9 % (0-4); Hematocrit 39.3 % (37.0-47.0); Hemoglobin 13.2 g/dl (12.0-16.0); Imm Gran Abs Auto 0.02 X10*3/uL (0.00-0.03); Imm Gran Pct Auto 0.3 % (0.0-0.4); Lymphocytes Absolute Auto 2.7 X10*3/uL (1.2-4.9); Lymphocytes Percent Auto 39.9 % (20-40); Mean Corpuscular HGB Conc 33.6 g/dl (31.0-35.0); Mean Corpuscular Hemoglobin 29.1 pg (27.0-33.0); Mean Corpuscular Volume 86.8 fL (80.0-98.0); Mean Platelet Volume 9.9 fL (9.4-12.3); Monocytes Absolute Auto 0.5 X10*3/uL (0.1-1.2); Monocytes Percent Auto 7.1 % (2-11); Neutrophils Absolute Auto 3.4 x10*3/uL (2.0-8.3); Neutrophils Percent Auto 50.1 % (45-73); Platelet Count 316 X10*3/uL (160-400); Red Blood Count 4.53 X10*6/uL (4.20-5.50); White Blood Count 6.9 X10*3/uL (4.8-10.8)
[2025-04-04 16:35] LABS: Alanine Aminotransferase 13 U/L (0-31); Albumin Level 4.5 g/dL (3.5-5.0); Alkaline Phosphatase 49 U/L (39-117); Anion Gap 12 (12-20); Aspartate Amino Transferase 19 U/L (5-31); Bilirubin Total 0.5 mg/dL (0.0-1.0); Blood Urea Nitrogen 15 mg/dL (9-16); Calcium 9.2 mg/dL (8.4-10.2); Carbon Dioxide 26 mmol/L (22-29); Chloride 106 mmol/L (96-108); Estimated Glomerular Filt Rate > 60; Glucose Random 83 mg/dL (60-115); Sodium 140 mmol/L (135-145); Total Protein 7.7 g/dL (6.5-8.0)
== END 2025-04-04 14:01 | disposition home or self-care (01) ==
LOC: HO.LAB 14:00
PROVIDERS: PCP Pediatrics; Visit Provider Nurse Practitioner Family
DX: Z12.11 Encounter for screening for malignant neoplasm of colon (principal); R42 Dizziness and giddiness
CPT/HCPCS: 36415; 80053; 85025; 99212

== ENCOUNTER 2025-04-04 14:00 | Outpatient (AMB) | payer OTHER, SELFPAY ==
[2025-04-04 14:05] VITALS: BP 113/63; PULSE 75; O2SAT 98; BMI 26.4
--- NOTE | 2025-04-04 14:05 | A.OFFVIS_ITS ---
Vital Signs 04/04/25 14:05 Height 5 ft 3 in Weight 149 lb 0.52 oz BMI 26.4 BP 113/63 Blood Pressure Location Lt brachial Position Sitting Pulse 75 Pulse Source Pulse Oximeter Pulse Oximetry (%) 98 Oxygen Delivery Method Room Air Intake Visit Reasons: colonoscopy screening/ Arash PT Intake Note: Patient complex follow up for pre colonoscopy /Farzana brown was 03/08/2024. Patient cc: None Allergies No Known Allergies Allergy (Verified 04/04/25 14:06) Medication List - Last Reconciled 04/04/25 by Zeynep Thompson CNP acyclovir 5% (Zovirax) 1 appl topical 6XD PRN 7 days valacyclovir (Valtrex) 500 mg PO BID 3 days HPI HPI colonoscopy screening/ Arash PT: Details: Patient is a 44-year-old female with PMH of dyslipidemia and vitamin-D deficiency. Last visit with JEAN White 03/08/2024 for pre colonoscopy screening. New referral request by PCP for colonoscopy screening 01/17/2025. She presented last year when a colonoscopy screening was halted due to low blood pressure, prompting a cardiology referral. Cleared by cardiology with normal results a year ago. Brittani reports non-daily bowel movements ranging from three to four times a week, occasionally straining and utilizing herbal teas for relief. She has recently increased dietary fiber with some improvement. Hydrates well with 5-6 bottles of water daily. She denies fever/chills, n/v, appetite changes, cardiopulmonary symptoms, pyrosis, regurgitation,dysphasia, unintentional wt loss, ab pain, or melena/hematochezia. Towards the end of our visit she reports experiencing dizziness. She attributes symptoms to her current menstrual cycle. She describes as feeling low and not passing out or room spinning sensation, without associated symptoms. 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 [facility] Medical History (Updated 04/04/25 @ 15:06 by Zeynep Thompson CNP) Dizziness Hydrosalpinx Cyst of left breast Breast pain Frequency of urination Pelvic pain Hemorrhagic cyst of right ovary HSV-2 (herpes simplex virus 2) infection Benign breast cyst in female Surgical History H/O ovarian cystectomy Hx of tubal ligation Family History Maternal Aunt History of breast cancer Paternal Aunt History of breast cancer Mother HTN (hypertension) Social History Household Members: Spouse and Children Housing: House Alcohol intake: never Patient Tobacco Use Status: Never used Tobacco Current occupational status: employed Current occupation: [employer] Sexual orientation: Straight/Heterosexual Gender identity: Female Female Reproductive History Menstrual Age of Menarche: 9 Review of Systems Const Reports as per HPI ENT Reports as per HPI Card Reports as per HPI Resp Reports as per HPI GI Reports as per HPI Reports as per HPI Physical Exam Vital Signs: Last Vital Signs Pulse 75 04/04/25 14:05 BP 113/63 04/04/25 14:05 Pulse Ox 98 04/04/25 14:05 Oxygen Delivery Method Room Air 04/04/25 14:05 BMI result Body Mass Index 26.4 Const General: healthy appearing, no acute distress and well developed Nutritional Appearance: well nourished Orientation/consciousness: patient oriented x3 HEENT Head: Yes normal to inspection, Yes normocephalic and Yes atraumatic Face and sinus: Yes normal facial exam Eyes General: appearance normal, both eyes and all related structures Neck Neck: Yes normal visual inspection Resp Effort & Inspection: normal respiratory effort, able to speak in complete sentences, no tracheal deviation and symmetric chest movement Auscultation: clear to auscultation bilaterally Cardio Jugular venous distension: no JVD Rate: regular rate Rhythm: regular rhythm Heart sounds: S1 normal heart sound present, S2 normal heart sound present, no gallops and no murmurs GI Inspection: Yes normal to inspection and No distended Palpation (GI): Soft to palpation, not firm, nontender and No hepatosplenomegaly present Auscultation: normal bowel sounds Neuro General: patient oriented x3 Gait exam (Neuro): Normal gait present Psych Appearance: grossly normal Mental Status: mental status grossly normal Speech and movement: Normal speech and movement present Affect: normal affect Attitude: cooperative Thought process: Normal thought process present Thought content: Normal thought content present Insight: Good insight present (Psych) Judgement: Good judgement present (Psych) Assessment & Plan Assessment & Plan (1) Encounter for screening colonoscopy: Code(s): Z12.11 - Encounter for screening for malignant neoplasm of colon Category: Medical Plan: Due for index screening colonoscopy. Medications: Prescriptions for laxative tablets and Miralax sent to pharmacy; instructions for Gatorade purchase and clear liquid diet given. Patient educated on procedure preparation, including avoiding certain foods and ensuring clear liquid intake. Advised on necessity for ride post-procedure due to sedation. (2) Dizziness: Code(s): R42 - Dizziness and giddiness Category: Medical Plan: VSS. Exam unremarkable. Advise we obtain basic labs to further evaluate for any anemia or electrolyte imbalance given current menstruation. Given she is otherwise asymptomatic and previous negative cardiac workup we will proceed with colonoscopy as discussed. Plan Follow-up after colonoscopy or sooner as needed. Time: I spent a total of 25 minutes on the date of encounter which includes: Preparing to see the patient (reviewed previous documentation, test results and medical history) Performing a medically appropriate exam and/or evaluation Ordering medications, tests, and procedures Documenting clinical information in the health record Orders: Orders Complete Blood Count Auto Diff Today R42 - Dizziness and giddiness Comprehensive Met. Panel Today R42 - Dizziness and giddiness Medications: New polyethylene glycol 3350 (Miralax) per colonoscopy prep instructions 238 grams PO ONCE 238 grams 0RF bisacodyl Take four tablets once for 1 day per colonoscopy instructions 5 mg PO ONCE 1 day 4 tabs 0RF Coding Level of Care Code Established Pt Est Pt Level 3 (70928) Patient Type Established Diagnoses Encounter for screening colonoscopy Z12.11 Dizziness R42
--- OUTSIDE RECORDS SUMMARY | 2025-04-04 14:07 | XMS_ITS | Encounter Summary ---
Author Organization [employer] Address [address] [place] [address] 7 [place] [address] Care Team Providers Care Revival Clerk Name Role Phone Laure Salvador MD Primary Care Provider [phone] Reason for Visit * Reason Comments Med Refill Encounter Details Date Type Department Care Team ([facility] [place] [facility] st Contact Info) Description 04/13/2024 Refill [facility] MED & PEDS [address] [place], [place] [phone] Laure Salvador MD [address] [place] [address] Social History Tobacco Use Types Packs/Day Years [...] Care Team (Late st Contact Info) Description 07/02/2025 9:00 AM EDT Office Visit [facility] MED [facility] PEDS [address] [place] [address] Danica Ponce MD [address] [place] [address] documented as of this encounter Visit Diagnoses Not on filedocumented in this encounter Additional Health Concerns Assessment Noted Time PHQ-9 Depression Total Score: 0 01/19/20 24 3:36 PM EST documented as of this encounter Care Teams Revival Clerk Relationship Specialty Start Date End Date Laure Salvador MD [address] [place] [address] PCP - General Family Medicine 11/14/18 documented as of this encounter
== END 2025-04-04 14:30 | disposition home or self-care (01) ==
LOC: HO.HGI 14:01
PROVIDERS: PCP Pediatrics; Visit Provider Nurse Practitioner Family
DX: Z01.818 Encounter for other preprocedural examination (principal); Z12.11 Encounter for screening for malignant neoplasm of colon; R42 Dizziness and giddiness
CPT/HCPCS: 99213

== ENCOUNTER 2025-04-16 07:45 | Outpatient (AMB) | payer OTHER, SELFPAY ==
--- OUTSIDE RECORDS SUMMARY | 2025-04-16 07:46 | XMS_ITS | Encounter Summary ---
Author Organization [employer] Address [address] [place] [address] 7 [place] [address] Care Team Providers Care Planer Setter Name Role Phone Laure Salvador MD Primary Care Provider [phone] Reason for Visit * Reason Comments Med Refill Encounter Details Date Type Department Care Team ([facility] st Contact Info) Description 04/13/2024 Refill [facility] MED & PEDS [address] [place], [place] [phone] Laure Salvador MD [address] [place] [address] Social History Tobacco Use Types Packs/Day Years [...] Team (Late st Contact Info) Description 07/02/2025 9:30 AM EDT Office Visit [facility] MED & PEDS [address] [place] [address] Danica Ponce MD [address] [place] [address] documented as of this encounter Visit Diagnoses Not on filedocumented in this encounter Additional Health Concerns Assessment Noted Time PHQ-9 Depression Total Score: 0 01/19/20 24 3:36 PM EST documented as of this encounter Care Teams Planer Setter Relationship Specialty Start Date End Date Laure Salvador MD [address] [place] [address] PCP - General Family Medicine 11/14/18 documented as of this encounter
[2025-04-16 07:50] VITALS: BP 100/62; BMI 25.7
--- NOTE | 2025-04-16 07:50 | MHC.OFFVIS ---
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 Doing well with cheese supervisor concerns: Previous urine culture with mixed bacteria she was concerned about and wants to repeat her urine today, she has no symptoms. Regular monthly menses. Currently is sexually active. She denies vaginal itching or irritation. STI screening offered; she declines. She tries to eat healthy and stays active with exercise. Denies family history of ovarian or colon cancer. Family history of breast cancer. Last pap smear 2023, negative. Mammogram: 2024. Colonscopy appt. is waiting to be booked. 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 Sexual orientation: Straight/Heterosexual Gender identity: Female Female Reproductive History Menstrual Age of Menarche: 9 Date of last menstrual period: 04/09/25 control method: permanent sterilization Total pregnancies: 2 Full term: 2 Number of Living Children: 2 Date of last pap smear: 04/16/24 Date of Mammogram: 12/24/24 Review of Systems Const All systems reviewed & are unremarkable except as noted in HPI and below Reports as per HPI Eyes Reports no additional complaints ENT Reports no additional complaints Card Reports no additional complaints Resp Reports no additional complaints GI Reports as per HPI and Reports no additional complaints Reports as per HPI Musc Reports no additional complaints Skin/Breast Reports as per HPI Neuro Reports no additional complaints Psych Reports no additional complaints Endo Reports no additional complaints Terrance/Lymph Reports no additional complaints Aller/Immun Reports no additional complaints Physical Exam Vital Signs: Last Vital Signs BP 100/62 04/16/25 07:50 BMI result Body Mass Index 25.7 Const General: cooperative, healthy appearing, no acute distress, well developed and alert Orientation/consciousness: patient oriented x3 HEENT Head: Yes normal to inspection Eyes General: appearance normal, both eyes and all related structures Neck Neck: Yes normal visual inspection Thyroid: Thyroid normal Chest Chest palpation & inspection: normal inspection of the chest and other (no puckering, dimpling, peau de orange, retraction, discharge, masses) Breast/axilla inspection: normal inspection of the breasts Breast/axilla palpation: normal palpation of the breasts Resp Effort & Inspection: normal respiratory effort GI Inspection: Yes normal to inspection Palpation (GI): Soft to palpation Rectal Exam - Female: deferred General: Yes bladder normal to palpation External Female Exam: normal external appearance and normal appearance of the urethra Speculum Exam - Vagina: normal appearance of the vagina, normal palpation and normal vaginal discharge Speculum Exam - Cervix: normal appearance of the cervix and normal palpation Bimanual exam- vagina & uterus: normal bimanual exam, normal palpation, uterine size normal, bladder normal to palpation, normal palpation and non-tender Bimanual Exam- Adnexa, other: no masses Skin General skin exam: no rashes or lesions noted Rashes: no rashes Neuro General: patient oriented x3 Cognition (Neuro): normal cognition Extrem General: Yes normal to inspection Psych Attitude: cooperative Thought process: Normal thought process present Results AMB Urinalysis Dipstick UR Leukocytes Negative Last Edit by Alma Joseph CMA on 04/16/25 09:50 UR Nitrite Negative Last Edit by Alma Joseph CMA on 04/16/25 09:50 UR Urobilinogen Normal Last Edit by Alma Joseph CMA on 04/16/25 09:50 UR Protein Negative Last Edit by Alma Joseph CMA on 04/16/25 09:50 UR Ph 6.0 Last Edit by Alma Joseph, PHANI on 04/16/25 09:50 UR Blood Moderate Last Edit by Alma Joseph, PROJECT ECONOMIST on 04/16/25 09:50 UR Specific [place] 1.015 Last Edit by Alma Joseph, PHANI on 04/16/25 09:50 UR Ketone Negative Last Edit by Alma Joseph, PHANI on 04/16/25 09:50 UR Bilirubin Negative Last Edit by Alma Joseph, PHANI on 04/16/25 09:50 UR Glucose Negative Last Edit by Alma Joseph, PROJECT ECONOMIST on 04/16/25 09:50 Assessment & Plan Assessment & Plan (1) Encounter for well woman exam with routine gynecological exam: Code(s): Z01.419 - Encounter for gynecological examination (general) (routine) without abnormal findings Category: Medical Plan Discussed: Current recommendations for pap smears per ASCCP guidelines. Breast awareness and periodic breast exams. Mammogram yearly. Report any breast pain other than cyclic or other concerns. Maintain a healthy lifestyle including a well balanced diet and routine exercise. Follow up with PCP for hematuria. Report any pelvic pain or concern. Patient verbalizes understanding and agrees to the plan of care. She was given opportunity to ask questions and all questions were answered to the best of my ability. RTO in one year for annual cheese supervisor examination. This note is constructed using voice recognition software. While every effort has been made to ensure accuracy, medical billing coordinator errors may have been included. Coding Level of Care Code Est Pt Prev Care 40-64y(51057) Diagnoses Encounter for well woman exam with routine gynecological exam Z01.419
== END 2025-04-16 08:18 | disposition home or self-care (01) ==
LOC: HO.HWS 07:45
PROVIDERS: PCP Pediatrics; Visit Provider Advanced Practice Midwife
DX: Z01.419 Encounter for gynecological examination (general) (routine) without abnormal findings (principal); R31.29 Other microscopic hematuria
CPT/HCPCS: 99396; 99459

== ENCOUNTER → 2025-04-16 07:45 | Outpatient (BNVA) | payer OTHER, SELFPAY | PROVIDERS: PCP Pediatrics; Visit Provider Advanced Practice Midwife | DX: Z01.419 Encounter for gynecological examination (general) (routine) without abnormal findings (principal) | CPT/HCPCS: 81002; 99396; 99459 ==

== ENCOUNTER 2025-04-17 16:10 | Outpatient (REF) | payer OTHER, SELFPAY | END 2025-04-17 16:11 | disposition home or self-care (01) | LOC: HO.CHCLNP 16:10 | PROVIDERS: Visit Provider Internal Medicine | DX: R31.29 Other microscopic hematuria (principal) | CPT/HCPCS: 87086 ==

== ENCOUNTER 2025-06-20 15:22 | Outpatient (REF) | payer OTHER, SELFPAY ==
--- NOTE | ~2025-06-20 | US_ITS ---
EXAMINATION: US RETROPERITONEAL LIMITED (RENAL ONLY) CLINICAL INFORMATION: Microhematuria.. COMPARISON: None available. TECHNIQUE: Real-time imaging of the kidneys. FINDINGS: RIGHT KIDNEY: 10.4 x 6.2 x 5.7 cm (SAG x AP x TRV). The kidney is normal in size, contour, and echogenicity. Renal cortical thickness is normal. No calculi or focal parenchymal lesions. No hydronephrosis. Mild fullness of the renal pelvis, nonspecific. LEFT KIDNEY: 10.7 x 6.3 x 5.8 cm (SAG x AP x TRV). The kidney is normal in size, contour, and echogenicity. Renal cortical thickness is normal. No calculi or focal parenchymal lesions. There is mild hydronephrosis with calyceal dilatation noted. US/US renal BI IMPRESSION: 1. Calyceal dilatation involving the left kidney, etiology is unclear. 2. Normal right kidney.. Electronically signed by: Joe Pabon MD 06/20/2025 03:44 PM EDT
--- OUTSIDE RECORDS SUMMARY | 2025-06-20 15:24 | XMS_ITS | Encounter Summary ---
Author Organization [employer] Address [address] [place] [address] [address] [place] [address] Care Team Providers Care Baby Formula Mixer Name Role Phone Laure Salvador MD Primary Care Provider [phone] Reason for Visit * Reason Comments Med Refill Encounter Details Date Type Department Care Team ([facility] st Contact Info) Description 04/13/[address] [facility] MED & PEDS [address] [place], [place] [phone] Laure Salvador MD [address] [place] [address] Social History Tobacco Use Types Packs/Day Years [...] Description 07/02/2025 9:30 AM EDT Office Visit [facility] MED & PEDS [address] [place] [address] Danica Ponce MD [address] [place] [address] documented as of this encounter Visit Diagnoses Not on filedocumented in this encounter Additional Health Concerns Assessment Noted Time PHQ-9 Depression Total Score: 0 01/19/20 24 3:36 PM EST documented as of this encounter Care Teams Baby Formula Mixer Relationship Specialty Start Date End Date Laure Salvador MD [address] [place] [address] PCP - General Family Medicine 11/14/18 documented as of this encounter
== END 2025-06-20 15:23 | disposition home or self-care (01) ==
LOC: HO.HMGCX 15:22
PROVIDERS: PCP Pediatrics; Visit Provider Internal Medicine
DX: R31.29 Other microscopic hematuria (principal)
CPT/HCPCS: 76775

== ENCOUNTER → 2025-06-20 15:24 | Outpatient (BNV) | payer OTHER, SELFPAY | PROVIDERS: PCP Pediatrics; Visit Provider Radiology Diagnostic Radiology | DX: R31.29 Other microscopic hematuria (principal) | CPT/HCPCS: 76775 ==

== ENCOUNTER 2025-07-23 14:45 | Outpatient (AMB) | payer OTHER, SELFPAY ==
[2025-07-23 14:52] VITALS: BP 104/60; PULSE 66; TEMP 36.7; O2SAT 99; BMI 25.9
--- NOTE | 2025-07-23 14:52 | MHC.OFFWIV ---
Intake Vital Signs 07/23/25 14:52 Height 5 ft 3 in Weight 146 lb BMI 25.9 BP 104/60 Blood Pressure Location Rt brachial Position Sitting Pulse 66 Pulse Source Pulse Oximeter Temp 98.0 F Temp Source Oral Pulse Oximetry (%) 99 Oxygen Delivery Method Room Air Intake Visit Reasons: EP Inflammation in back? Intake Note: pt presents with painful lesions on left side perineum for about a week- reports h/o herpes- has taken valtrex and topical cream for herpes flare without relief Patient Tobacco Use Status: Never used Tobacco Allergies No Known Allergies Allergy (Verified 07/23/25 14:55) Do you need a note to return to daycare/school/sports/work: No HPI HPI Comments History of Present Illness Details History of Present Illness - The patient is a 44-year-old female presenting with a bump in the perineum. - Reports a sensation of something unusual in the perineal area for about one week, initially suspected to be herpes. - Applied topical cream without improvement, noticed the area becoming larger and harder, causing pain. - She has pain when she touches the area. - Has not had any bleeding or discharge from the area. - No prior drainage attempts were made by the patient, and there are no known allergies to medications. - She denies fever, chills, discharge, bleeding, rashes or lesions. Physical Exam General: Cooperative, healthy appearing, comfortable, no acute distress and well developed Respiratory: Normal respiratory effort and able to speak in complete sentences. Clear to auscultation bilaterally Cardiovascular: Regular rate and rhythm. Normal S1 and S2 Skin: No rashes or lesions noted. Small, raised, fluctuant, tender abscess noted to the left perineum. No erythema or induration noted. Patient was informed and verbally consented to the use of an ambient scribe for clinic note documentation during this visit. 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 Sexual orientation: Straight/Heterosexual Gender identity: Female Female Reproductive History Menstrual Age of Menarche: 9 Review of Systems Const All systems reviewed & are unremarkable except as noted in HPI and below Physical Exam Vital Signs: Last Vital Signs Temp 98.0 F 07/23/25 14:52 Pulse 66 07/23/25 14:52 BP 104/60 07/23/25 14:52 Pulse Ox 99 07/23/25 14:52 Oxygen Delivery Method Room Air 07/23/25 14:52 BMI result Body Mass Index 25.9 Assessment & Plan Assessment & Plan (1) Abscess: Code(s): L02.91 - Cutaneous abscess, unspecified Plan Most likely abscess vs folliculitis Advised the patient that she needed an I&D of the abscess as part of the treatment but pt declined at this time plan - tylenol or motrin as needed for pain or fever - Prescribed antibiotics to address the infection. - Recommended Epsom salt baths to promote drainage. - Advised her to be careful in the sun while on the medication - Advised to monitor the abscess for changes and seek further medical attention if it enlarges or does not improve. External Hemorrhoids - No specific treatment discussed during the visit. Medications: New doxycycline hyclate 100 mg PO BID 20 tabs 0RF 10 days Coding Level of Care Code Est Pt Level 3 (52768) Diagnoses Abscess L02.91
--- OUTSIDE RECORDS SUMMARY | 2025-07-23 17:12 | XMS_ITS | Clinical Summary ---
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 Encounters Date Type Department Care Team Description 07/02/2025 9:30 AM EDT Office Visit [facility] [address] [place] [address] Danica Ponce MD Blue nevus of cheek (Primary Dx); Seborrheic keratosis; Atypical nevus of back 07/02/2025 Travel 07/01/2025 Travel 06/21/2025 Orders Only [facility] [address] [place] [address] Danica Ponce MD Other hydronephrosis (Primary Dx) from Last 3 Months Immunizations Immunization Administration Dates Next Due Influenza injectable quadriv [...] Sign Reading Time Taken Comments Blood Pressure 111/65 07/02/2025 9:47 AM EDT Pulse 70 07/02/2025 9:47 AM EDT Temperature 36.6 C (97.9 F) 04/17/2025 3:11 PM EDT Respiratory Rate 19 07/02/2025 9:47 AM EDT Oxygen Saturation 98% 07/02/2025 9:47 AM EDT Inhaled Oxygen Concentration - - Weight 65.8 kg (145 lb) 07/02/2025 9:47 AM EDT Height 165.1 cm (5' 5 ) 07/02/2025 9:47 AM EDT Body Mass Index 24.13 07/02/2025 9:47 AM EDT Plan of Treatment Health Maintenance Due Date Last Done Comments CT Colonography 1978 Colonoscopy 1978 Colorectal Cancer Screening 1978 FIT DNA/Cologuard 1978 FIT 1978 FOBT 1978 HIV Screening 1978 Sigmoidoscopy 1978 Alcohol/Substance Use Screening 1990 Family Planning (PISQ) 1993 Hepatitis C Screening 1996 Hepatitis B Vaccines (1 of 3 - 19+ 3-dose series) 1997 Depression Screening 01/18/2025 01/19/2024, 01/19/20 24 SDOH Screening 01/18/2025 01/19/2024 COVID-19 Vaccine ( season) 2025 04/04/2021, 03/14/2021 Influenza Vaccine (#1) 2025 12/22/2017, 2012 Disability Screening 04/16/2026 04/16/2025 Tobacco Screening 07/02/2026 07/02/2025 Cervical Cancer Screening 10/20/2026 HPV/Cotest 10/20/2026 10/20/2021 [...] patient's age to complete this topic Meningococcal B Vaccine Aged Out No l onger eligible based on patient's age to complete this topic Meningococcal Vaccine Aged Out No joselin ozzy eligible based on patient's age to complete this topic Pneumococcal Vaccine: Pediatrics (0 to 5 Years) and At-Risk Patients (6 to 49) Years Aged Out No longer eligible based on patient's age to complete this topic RSV under 20 months Aged Out No longe r eligible based on patient's age to complete this topic Rotavirus Vaccines Aged Out No longer eligible based on patient's age to complete this topic Procedures Procedure Name Priority Date/Time Associated Diagnosis Comments US RENAL COMPLETE Routine 06/20/2025 3:2 4 PM EDT BI US BREAST LIMITED LEFT Routine 11/15/2024 2:30 PM EST THINPREP IMAGING PAP AND HPV MRNA E6/E7, WITH CT/NG, TRICHOMONAS Routine 10/20/2021 4:29 PM EST from Last 3 Months or Most Recently Relevant to Health Maintenance Results * US Renal Complete (06/20/2025 3:24 PM EDT) Anatomical Region Laterality Modality Kidney Ultrasound 06/20/2025 3:24 PM EDT Narrative 06/20/2025 3:47 PM EDT [facility] [address] [place] [address] [place] [address] Ultrasound Report Signed Patient: Brittani Lin#: [id number] : 1980 Acct:[id number] Age/Sex: 44 / F ADM Date: 06/20/25 Loc: HO.HMGCX Attending Dr: Danica Ponce MD Ordering Physician: Danica Ponce MD Date of Service: 06/20/25 Procedure(s): US renal BI Accession Number(s): [id number] cc: Danica Ponce MD; Laure Salvador MD EXAMINATION: US RETROPERITONEAL LIMITED (RENAL ONLY) CLINICAL INFORMATION: Microhematuria.. COMPARISON: None available. TECHNIQUE: Real-time imaging of the kidneys. FINDINGS: RIGHT KIDNEY: 10.4 x 6.2 x 5.7 cm (SAG x AP x TRV). The kidney is normal in size, contour, and echogenicity. Renal cortical thickness is normal. No calculi or focal parenchymal lesions. No hydronephrosis. Mild fullness of the renal pelvis, nonspecific. LEFT KIDNEY: 10.7 x 6.3 x 5.8 cm (SAG x AP x TRV). The kidney is normal in size, contour, and echogenicity. Renal cortical thickness is normal. No calculi or focal parenchymal lesions. There is mild hydronephrosis with calyceal dilatation noted. US/US renal BI IMPRESSION: 1. Calyceal dilatation involving the left kidney, etiology is unclear. 2. Normal right kidney.. Electronically signed by: Joe Pabon MD 06/20/2025 03:44 PM EDT Dictated By: Joe Pabon MD Signed By: <Electronically signed by Joe Pabon MD in OV> 06/20/25 1544 DD/ 1524 TD/TT: 06/20/25 1535 Vegetable Preparer: Procedure Note Donotuseinterpreter, Image - 06/20/2025 [facility] Adult Primary Care [facility] [place] [address] Ultrasound Report Signed Patient: Brittani Lin R#: [id number] : 1980Acct:[id number] Age/Sex: 44 / FADM Date: 06/20/25 Loc: .HMGCX Attending Dr: Danica Ponce MD Ordering Physician: Danica Ponce MD Date of Service: 06/20/25 Procedure(s): US renal BI Accession Number(s): [id number] cc: Danica Ponce MD; Laure Salvador MD EXAMINATION: US RETROPERITONEAL LIMITED (RENAL ONLY) CLINICAL INFORMATION: Microhematuria.. COMPARISON: None available. TECHNIQUE: Real-time imaging of the kidneys. FINDINGS: RIGHT KIDNEY: 10.4 x 6.2 x 5.7 cm (SAG x AP x TRV). The kidney is normal in size, contour, and echogenicity. Renal cortical thickness is normal. No calculi or focal parenchymal lesions. No hydronephrosis. Mild fullness of the renal pelvis, nonspecific. LEFT KIDNEY: 10.7 x 6.3 x 5.8 cm (SAG x AP x TRV). The kidney is normal in size, contour, and echogenicity. Renal cortical thickness is normal. No calculi or focal parenchymal lesions. There is mild hydronephrosis with calyceal dilatation noted. US/US renal BI IMPRESSION: 1. Calyceal dilatation involving the left kidney, etiology is unclear. 2. Normal right kidney.. Electronically signed by: Joe Pabon MD 06/20/2025 03:44 PM EDT RP Dictated By: Joe Pabon MD Signed By: <Electronically signed by Joe Pabon MD in OV> 06/20/25 1544 DD/ 1524 TD/TT: 06/20/25 1535 Vegetable Preparer: us Danica Ponce MD IMG US PROCEDURES Final Res ult * BI US Breast Limited Left (11/15/2024 2:30 PM EST) Anatomical Region Laterality Modality Breast Left Ultrasound 11/15/2024 2:30 PM EST Narrative 11/15/2024 2:58 PM EST [facility] [address] [place] [address] Ultrasound Report Signed Patient: Brittani Lin R#: [id number] : 1980 Acct:[id number] Age/Sex: 44 / F ADM Date: 11/15/24 Loc: HO.MAMMO Attending Dr: Laure Salvador MD Ordering Physician: Laure Salvador MD Date of Service: 11/15/24 Procedure(s): US breast LT limited mamm only Accession Number(s): [id number] cc: Laure Salvador MD EXAMINATION: MM DIAGNOSTIC [...] by: Skye Doan DO 11/15/2024 02:56 PM [facility] Dictated By: Skye Doan DO Signed By: <Electronically signed by Skye Doan DO in OV> 11/15/24 1456 DD/ 1430 TD/TT: 11/15/24 1452 Vegetable Preparer: Procedure Note Donotuseinterpreter, Image - 11/15/2024 [facility] [address] [place] [address] Ultrasound Report Signed Patient: Brittani Lin R#: [id number] : 1980Acct:[id number] Age/Sex: 44 / FADM Date: 11/15/24 Loc: HO.MAMMO Attending Dr: Laure Salvador MD Ordering Physician: Laure Salvador MD Date of Service: 11/15/24 Procedure(s): US breast LT limited mamm only Accession Number(s): [id number] cc: Laure Salvador MD EXAMINATION: MM DIAGNOSTIC [...] 11/15/24 1456 DD/ 1430 TD/TT: 11/15/24 1452 Vegetable Preparer: us Laure Salvador MD IM US PROCEDURES Edited Resu lt - Final * THINPREP TIS PAP AND HPV mRNA E6/E7, CT/NG, TRICH (10/20/2021 4:29 PM EST) Chlamydia trachomatis RNA, TMA, Urogenital NOT DETECTED NOT DETECTED [facility] Clinical Information: Z113 Z124 [facility] COMMENT SEE COMMENT [facility] Comment: The analytical performance characteristics of this assay, when used to test SurePath(TM) specimens have been determined by [employer]. The modifications have not been cleared or approved by the FDA. This assay has been validated pursuant to the CLIA regulations and is used for clinical purposes. For additional information, please refer to https://education.naaya/faq/TMK825 (This link is being provided for information/ educational purposes only.) COMMENT SEE COMMENT [facility] Comment: EXPLANATORY NOTE: The Pap is a screening test for cervical cancer. It is not a diagnostic test and is subject to false negative and false positive results. It is most reliable when a satisfactory sample, regularly obtained, is submitted with relevant clinical findings and history, and when the Pap result is evaluated along with historic and current clinical information. COMMENT: This Pap test has been evaluated with computer assisted technology. [facility] Varsity Baseball Coach: SEE COMMENT [facility] Comment: ED, CT(ASCP) CT screening location: [place] [address] HPV nRNA E6/E7 Not Detected Not Detected [facility] Comment: Methodology: Rehab Nursing Tech-Mediated Amplification This assay detects E6/E7 viral messenger RNA (mRNA) from 14 high-risk HPV types (16,18,31,33,35,39,45,51,52,56,58,59,66,68). The analytical performance characteristics of this assay have been determined by [employer]. The modifications have not been cleared or approved by the FDA. This assay has been validated pursuant to the CLIA regulations and is used for clinical purposes. For additional information, please refer to http://education.[employer] Language Express/faq/TMG201q9 (This link if provided for information/ educational purposes only.) Interpretation/Re sult: Negative for intraepithelial lesion or malignancy. [facility] LMP: NONE GIVEN FOUNDATIO N [...] of this assay have been determined by [employer]. The modifications have not been cleared or approved by the FDA. This assay has been validated pursuant to the CLIA regulations and is used for clinical purposes. For additional information, please refer to http://education.naaya/ faq/Trichomonastma (This link is being provided for information/ educational purposes only.) 10/20/2021 4:29 PM EST us Shirin Newberry CNM LAB PATHOLOGY ORDERABLES Final Result [facility] Anywhere [address] from Last 3 Months or Most Recently Relevant to Health Maintenance Insurance [facility] [place] [id number] Care Teams Dry Cleaning Checker Relationship Specialty Start Date End Date Laure Salvador MD [address] [place] [address] [place] [address] PCP - General Family Medicine 11/14/18
--- OUTSIDE RECORDS SUMMARY | 2025-07-23 17:12 | XMS_ITS | Encounter Summary ---
Author Organization [employer] Address [address] [place] [address] 7 [place] [address] Care Team Providers Care Belt Sewer Name Role Phone Laure Salvador MD Primary Care Provider [phone] Reason for Visit * Reason Comments Med Refill Encounter Details Date Type Department Care Team ([facility] st Contact Info) Description 04/22/2024 Refill [facility]EDS [address] [place], [place] [phone] Laure Salvador MD [address] [place] [address] Social History Tobacco Use Types Packs/Day Years [...] documented as of this encounter Care Teams Belt Sewer Relationship Specialty Start Date End Date Laure Salvador MD [address] [place] [address] PCP - General Family Medicine 11/14/18 documented as of this encounter
--- OUTSIDE RECORDS SUMMARY | 2025-07-23 17:12 | XMS_ITS | Encounter Summary ---
Author Organization [employer] Address [address] [place] [address] 7 [place] [address] Care Team Providers Care Sap Security Consultant Name Role Phone Laure Salvador MD Primary Care Provider [phone] Reason for Visit * Reason Comments Med Refill Encounter Details Date Type Department Care Team ([facility] st Contact Info) Description 04/13/2024 Refill [facility] & PEDS [address] [place], [place] [phone] Laure Salvador MD [address] [place] [address] Social History Tobacco Use Types Packs/Day Years [...] encounter Miscellaneous Notes * Telephone Encounter - Olseya Marsh RN - 04/16/2024 11:04 AM EDT [...] documented as of this encounter Care Teams Sap Security Consultant Relationship Specialty Start Date End Date Laure Salvador MD [address] [place] [address] PCP - General Family Medicine 11/14/18 documented as of this encounter
--- OUTSIDE RECORDS SUMMARY | 2025-07-23 17:12 | XMS_ITS | Encounter Summary ---
Author Organization [employer] Address [address] [place] [address] 7 [place] [address] Care Team Providers Care Apartment Rental Clerk Name Role Phone Laure Salvador MD Primary Care Provider Encounter Details Date Type Department Care Team ([facility] Contact Info) Description 03/28/2023 Abstract [facility]EDS [address] [place], [place] [phone] Laure Salvador MD [address] [place] [address] Social History Tobacco Use Types Packs/Day Years [...] on filedocumented in this encounter Care Teams Apartment Rental Clerk Relationship Specialty Start Date End Date Laure Salvador MD [address] [place], [place] [phone] PCP - General Family Medicine 11/14/18 documented as of this encounter
--- OUTSIDE RECORDS SUMMARY | 2025-07-23 17:12 | XMS_ITS | Encounter Summary ---
Author Organization [employer] Address [address] [place] [address] Care Team Providers Care Softball Coach Name Role Phone Laure Salvador MD Primary Care Provider [phone] Reason for Referral * Consultation (Routine) - Authorized Specialty Diagnoses / Procedures Referred By Contada t Referred To Contact Urology Diagnoses Other hydronephrosis Danica Ponce MD [address] [place] [address] Phone: tel: fax: [facility] [address] [place] [address] [address] [place] [address] Phone: tel: fax: Referral ID Status Reason Start Date Expiration Date Visits Requested Visits Authorized [id number] Authorized Specialty Services Required 06/21/2025 06/21/2026 1 1 Encounter Details Date Type Department Care Team (Late st Contact Info) Description 06/21/2025 Orders Only [facility]ED[facility] [address] [place], [place] [phone] Danica Ponce MD [address] [place], [place] [phone] Other hydronephrosis (Primary Dx) Social History Tobacco Use Types Packs/Day Years [...] as of this encounter Plan of Treatment Scheduled Referrals Name Type Priority Associated Diagnoses Orde r Schedule Referral to Urology Outpatient Referral Routine Other hydronephrosis Expected: 06/21/2025 (Approximate), Expires: 06/21/2026 documented as of this encounter Visit Diagnoses Diagnosis Other hydronephrosis- Primary documented in this encounter Additional Health Concerns Assessment Noted Time PHQ-9 Depression Total Score: 0 01/19/20 24 3:36 PM EST documented as of this encounter Care Teams Softball Coach Relationship Specialty Start Date End Date Laure Salvador MD [address] [place] [address] PCP - General Family Medicine 11/14/18 documented as of this encounter
== END 2025-07-23 15:58 | disposition home or self-care (01) ==
PROVIDERS: PCP Pediatrics; Visit Provider Physician Assistant Medical
DX: L02.91 Cutaneous abscess, unspecified (principal)

== ENCOUNTER → 2025-07-23 14:45 | Outpatient (BNVA) | payer OTHER, SELFPAY | PROVIDERS: PCP Pediatrics; Visit Provider Physician Assistant Medical | DX: L02.215 Cutaneous abscess of perineum (principal) | CPT/HCPCS: 99212 ==

== ENCOUNTER 2025-08-15 15:27 | Outpatient (REF) | payer OTHER, SELFPAY | END 2025-08-15 15:28 | disposition home or self-care (01) | LOC: HO.LNP 15:27 | PROVIDERS: PCP Pediatrics; Visit Provider Nurse Practitioner Family | DX: N32.81 Overactive bladder (principal); N39.0 Urinary tract infection, site not specified; N39.46 Mixed incontinence | CPT/HCPCS: 81003; 88112; 99202 ==

== ENCOUNTER 2025-08-15 15:27 | Outpatient (AMB) | payer OTHER, SELFPAY ==
--- NOTE | 2025-08-15 15:30 | MHC.OFFVIS ---
Intake Visit Reasons: mild hydronephrosis/ micro hematuria Intake Note: patient presents today for: new pt mild hydronephrosis/ micro hemturia urology medications: none blood thinners: none US done: 06/20/25 Legal Investigator Required: No Accompanied by: Self / Same As Patient Allergies No Known Allergies Allergy (Verified 08/15/25 15:31) PFSH Medical History Dizziness Hydrosalpinx Cyst of left breast Breast pain Frequency of urination Pelvic pain Hemorrhagic cyst of right ovary HSV-2 (herpes simplex virus 2) infection Benign breast cyst in female Surgical History H/O ovarian cystectomy Hx of tubal ligation Family History Maternal Aunt History of breast cancer Paternal Aunt History of breast cancer Mother HTN (hypertension) Social History Household Members: Spouse and Children Housing: House Alcohol intake: never Patient Tobacco Use Status: Never used Tobacco Current occupational status: employed 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 Sexual orientation: Straight/Heterosexual Gender identity: Female Female Reproductive History Menstrual Age of Menarche: 9 Results AMB Urinalysis, Automated UA Leukoctes 0 Chiqui/uL Last Edit by ANT Laguerre on 08/15/25 15:40 UA Nitrite Last Edit by ANT Laguerre on 08/15/25 15:40 UA Urobilinogen 0.2 mg/dL Last Edit by ANT Laguerre on 08/15/25 15:40 UA Protein 0 mg/dL Last Edit by ANT Laguerre on 08/15/25 15:40 UA pH 6.5 Last Edit by ANT Laguerre on 08/15/25 15:40 UA Blood 80 Alcides/uL Last Edit by ANT Laguerre on 08/15/25 15:40 UA Specific [place] 1.005 Last Edit by ANT Laguerre on 08/15/25 15:40 UA Ketone Last Edit by ANT Laguerre on 08/15/25 15:40 UA Bilirubin 0 mg/dL Last Edit by ANT Laguerre on 08/15/25 15:40 UA Glucose 0 mg/dL Last Edit by ANT Laguerre on 08/15/25 15:40 Results Reviewed Results Reviewed: Laboratory Last Values Urine pH (Auto) 6.5 08/15/25 15:40 Specific [place] (Auto) 1.005 08/15/25 15:40 Urine Protein (Auto) 0 mg/dL 08/15/25 15:40 Glucose (UA)(Auto) 0 mg/dL 08/15/25 15:40 Urine Blood (Auto) 80 Alcides/uL 08/15/25 15:40 Urine Bilirubin (Auto) 0 mg/dL 08/15/25 15:40 Urine Urobilinogen (Auto) 0.2 mg/dL 08/15/25 15:40 Leukocyte Esterase (Auto) 0 Chiqui/uL 08/15/25 15:40 Date of Service: 06/20/25 Procedure(s): US renal BI Real-time imaging of the kidneys. FINDINGS: RIGHT KIDNEY: 10.4 x 6.2 x 5.7 cm (SAG x AP x TRV). The kidney is normal in size, contour, and echogenicity. Renal cortical thickness is normal. No calculi or focal parenchymal lesions. No hydronephrosis. Mild fullness of the renal pelvis, nonspecific. LEFT KIDNEY: 10.7 x 6.3 x 5.8 cm (SAG x AP x TRV). The kidney is normal in size, contour, and echogenicity. Renal cortical thickness is normal. No calculi or focal parenchymal lesions. There is mild hydronephrosis with calyceal dilatation noted. IMPRESSION: 1. Calyceal dilatation involving the left kidney, etiology is unclear. 2. Normal right kidney.. Assessment & Plan Assessment & Plan (1) Microscopic hematuria: Code(s): R31.29 - Other microscopic hematuria Category: Medical (2) Frequency of urination: Code(s): R35.0 - Frequency of micturition Category: Medical Orders: Orders Urine Cytology Today N39.0 - Urinary tract infection, site not specified CT urogram Today R31.0 - Gross hematuria Blood Urea Nitrogen Today R31.29 - Other microscopic hematuria AMB Urinalysis Automated Today Z13.9 - Encounter for screening, unspecified Creatinine Today R31.29 - Other microscopic hematuria PT Evaluation and Treatment Today N39.46 - Mixed incontinence, R35.0 - Frequency of micturition Medications: New oxybutynin chloride ER 10 mg PO DAILY 30 tabs 3RF 30 days N32.81 - Overactive bladder Discontinued doxycycline hyclate Discontinued Reason: Patient Completed Course 100 mg PO BID 10 days 20 tabs 0RF Coding Diagnoses Microscopic hematuria R31.29 Frequency of urination R35.0
--- OUTSIDE RECORDS SUMMARY | 2025-08-15 16:43 | XMS_ITS | Encounter Summary ---
Author Organization [employer] Address [address] [place] [address] 7 [place] [address] Care Team Providers Care Auction Clerk Name Role Phone Laure Salvador MD Primary Care Provider [phone] Reason for Visit * Reason Comments Med Refill Encounter Details Date Type Department Care Team ([facility] st Contact Info) Description 04/22/2024 Refill [facility] MED & PEDS [address] [place], [place] [phone] Laure Salvador MD [address] [place] [address] Social History Tobacco Use Types Packs/Day Years [...] documented as of this encounter Care Teams Auction Clerk Relationship Specialty Start Date End Date Laure Salvador MD [address] [place] [address] PCP - General Family Medicine 11/14/18 documented as of this encounter
--- OUTSIDE RECORDS SUMMARY | 2025-08-15 16:43 | XMS_ITS | Encounter Summary ---
Author Organization [employer] Address [address] [place] [address] 7 [place] [address] Care Team Providers Care Fire Extinguisher Inspector Name Role Phone Laure Salvador MD Primary Care Provider [phone] Reason for Visit * Reason Comments Med Refill Encounter Details Date Type Department Care Team ([facility] st Contact Info) Description 04/13/2024 Refill [facility] & PEDS [address] [place], [place] [phone] Laure Salvador MD [address] [place] [address] Social History Tobacco Use Types Packs/Day Years [...] documented as of this encounter Care Teams Fire Extinguisher Inspector Relationship Specialty Start Date End Date Laure Salvador MD [address] [place] [address] PCP - General Family Medicine 11/14/18 documented as of this encounter
--- OUTSIDE RECORDS SUMMARY | 2025-08-15 16:43 | XMS_ITS | Encounter Summary ---
Author Organization [employer] Address [address] [place] [address] 7 [place] [address] Care Team Providers Care Architectural Project Captain Name Role Phone Laure Salvador MD Primary Care Provider [phone] Encounter Details Date Type Department Care Team ([facility] Contact Info) Description 03/28/2023 Abstract [facility] MED & PEDS [address] [place], [place] [phone] Laure Salvador MD [address] [place] [address] Social History Tobacco Use Types Packs/Day Years [...] on filedocumented in this encounter Care Teams Architectural Project Captain Relationship Specialty Start Date End Date Laure Salvador MD [address] [place], [place] [phone] PCP - General Family Medicine 11/14/18 documented as of this encounter
--- OUTSIDE RECORDS SUMMARY | 2025-08-15 16:43 | XMS_ITS | Clinical Summary ---
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 Encounters Date Type Department Care Team Description 07/02/2025 9:30 AM EDT Office Visit [facility] MED & PEDS [address] [place] [address] Danica Ponce MD Blue nevus of cheek (Primary Dx); Seborrheic keratosis; Atypical nevus of back 07/02/2025 Travel 07/01/2025 Travel 06/21/2025 Orders Only [facility] MED [facility] [address] [place] [address] Danica Ponce MD Other hydronephrosis (Primary Dx) [...] PM EDT Narrative 06/20/2025 3:47 PM EDT [facility] Adult Primary Care [address] [place] [address] [place] [address] Ultrasound Report Signed Patient: Brittani Lin#: [id number] : 1980 Acct:[id number] Age/Sex: 44 / F ADM Date: 06/20/25 Loc: HO.HMGCX Attending Dr: Danica Ponce MD Ordering Physician: Danica Ponce MD Date of Service: 06/20/25 Procedure(s): US renal BI Accession Number(s): [id number] cc: Danica Ponce MD; Laure Salvador MD [...] 06/20/25 1544 DD/ 1524 TD/TT: 06/20/25 1535 Gambreler: Procedure Note Donotuseinterpreter, Image - 06/20/2025 [facility] Adult Primary Care [facility] [place] [address] Ultrasound Report Signed Patient: Brittani Lin R#: [id number] : 1980Acct:[id number] Age/Sex: 44 / FADM Date: 06/20/25 Loc: .HMGCX Attending Dr: Danica Ponce MD Ordering Physician: Danica Ponce MD Date of Service: 06/20/25 Procedure(s): US renal BI Accession Number(s): [id number] cc: Danica Ponce MD; Laure Salvador MD [...] 06/20/25 1544 DD/ 1524 TD/TT: 06/20/25 1535 Gambreler: us Danica Ponce MD IMG US PROCEDURES Final Res ult * BI US Breast Limited Left (11/15/2024 2:30 PM EST) Anatomical Region Laterality Modality Breast Left Ultrasound 11/15/2024 2:30 PM EST Narrative 11/15/2024 2:58 PM EST [facility] [address] [place] [address] Ultrasound Report Signed Patient: Brittani Lin R#: [id number] : 1980 Acct:[id number] Age/Sex: 44 / F ADM Date: 11/15/24 Loc: HO.MAMMO Attending Dr: Laure Salvador MD Ordering Physician: Laure Salvador MD Date of Service: 11/15/24 Procedure(s): US breast LT limited mamm only Accession Number(s): [id number] cc: Laure Salvador MD EXAMINATION: MM DIAGNOSTIC [...] by: Skye Doan DO 11/15/2024 02:56 PM [facility] Dictated By: Skye Doan DO Signed By: <Electronically signed by Skye Doan DO in OV> 11/15/24 1456 DD/ 1430 TD/TT: 11/15/24 1452 Gambreler: Procedure Note Donotuseinterpreter, Image - 11/15/2024 [facility] [address] [place] [address] Ultrasound Report Signed Patient: Brittani Lin R#: [id number] : 1980Acct:[id number] Age/Sex: 44 / FADM Date: 11/15/24 Loc: HO.MAMMO Attending Dr: Laure Salvador MD Ordering Physician: Laure Salvador MD Date of Service: 11/15/24 Procedure(s): US breast LT limited mamm only Accession Number(s): [id number] cc: Laure Salvador MD EXAMINATION: MM DIAGNOSTIC [...] 11/15/24 1456 DD/ 1430 TD/TT: 11/15/24 1452 Gambreler: us Laure Salvador MD IM US PROCEDURES Edited Resu lt - Final * THINPREP TIS PAP AND HPV mRNA E6/E7, CT/NG, TRICH (10/20/2021 4:29 PM EST) Chlamydia trachomatis RNA, TMA, Urogenital NOT DETECTED NOT DETECTED [facility] Clinical Information: Z113 Z124 [facility] COMMENT SEE COMMENT [facility] Comment: The analytical performance characteristics of this assay, when used to test SurePath(TM) specimens have been determined by [employer]. The modifications have not been cleared or approved by the FDA. This assay has been validated pursuant to the CLIA regulations and is used for clinical purposes. For additional information, please refer to https://education.Symbios ATM Venture/faq/MZZ133 (This link is being provided for information/ [...] has been evaluated with computer assisted technology. [facility] Clinical Office Technician: SEE COMMENT [facility] Comment: ED, CT(ASCP) CT screening location: [place] [address] HPV nRNA E6/E7 Not Detected Not Detected [facility] Comment: Methodology: Talent Acquisition Sourcer-Mediated Amplification This assay detects E6/E7 viral messenger RNA (mRNA) from 14 high-risk HPV types (16,18,31,33,35,39,45,51,52,56,58,59,66,68). The analytical performance characteristics of this assay have been determined by [employer]. The modifications have not been cleared or approved by the FDA. This assay has been validated pursuant to the CLIA regulations and is used for clinical purposes. For additional information, please refer to http://education.Medine.Trust Metrics/faq/ZUG516f8 (This link if provided for information/ educational purposes only.) Interpretation/Re sult: Negative for intraepithelial lesion or malignancy. [facility] LMP: NONE GIVEN [facility]OUND[facility] N [...] of this assay have been determined by [employer]. The modifications have not been cleared or approved by the FDA. This assay has been validated pursuant to the CLIA regulations and is used for clinical purposes. For additional information, please refer to http://education.Symbios ATM Venture/ faq/Trichomonastma (This link is being provided for information/ educational purposes only.) 10/20/2021 4:29 PM EST us Shirin Newberry CNM LAB PATHOLOGY ORDERABLES Final Result [facility] Anywhere [address] from Last 3 Months or Most Recently Relevant to Health Maintenance Insurance [facility] [place] [id number] Care Teams Process Area Supervisor Relationship Specialty Start Date End Date Laure Salvador MD [address] [place] [address] [place] [address] PCP - General Family Medicine 11/14/18
--- OUTSIDE RECORDS SUMMARY | 2025-08-15 16:43 | XMS_ITS | Encounter Summary ---
Author Organization [employer] Address [address] [place] [address] Care Team Providers Care File System Installer Name Role Phone Laure Salvador MD Primary Care Provider [phone] Reason for Referral * Consultation (Routine) - Authorized Specialty Diagnoses / Procedures Referred By Contada t Referred To Contact Urology Diagnoses Other hydronephrosis Danica Ponce MD [address] [place] [address] Phone: tel: fax: [facility] [address] [place] [address] [address] [place] [address] Phone: tel: fax: Referral ID Status Reason Start Date Expiration Date Visits Requested Visits Authorized [id number] Authorized Specialty Services Required 08/14/2025 08/13/2026 10 10 Encounter Details Date Type Department Care Team (Late st Contact Info) Description 06/21/2025 Orders Only [facility] MED & PEDS [address] [place], [place] [phone] Danica Ponce MD [address] [place], [place] [phone] Other hydronephrosis (Primary Dx) Social History Tobacco [...] documented as of this encounter Care Teams File System Installer Relationship Specialty Start Date End Date Laure Salvador MD [address] [place] [address] PCP - General Family Medicine 11/14/18 documented as of this encounter
== END 2025-08-15 16:04 | disposition home or self-care (01) ==
LOC: HO.HUSH 15:28
PROVIDERS: PCP Pediatrics; Visit Provider Nurse Practitioner Family
DX: Z13.9 Encounter for screening, unspecified (principal)

== ENCOUNTER 2025-08-29 11:19 | Outpatient (AMB) | payer OTHER, SELFPAY ==
--- NOTE | 2025-08-29 11:50 | AM.OFFWIN_ITS ---
Intake Vital Signs 08/29/25 11:51 Height 5 ft 3 in Weight 148 lb BMI 26.2 BP 130/78 Blood Pressure Location Lt brachial Position Sitting Pulse 73 Pulse Source Pulse Oximeter Temp 98.1 F Temp Source Oral Pulse Oximetry (%) 98 Intake Visit Reasons: EP headache for 3 days Intake Note: pt is here for headache for 3 days, no OTC is helping Patient Tobacco Use Status: Never used Tobacco Allergies No Known Allergies Allergy (Verified 08/29/25 11:51) Medication List - Last Reconciled 08/29/25 by Mary Ochoa NP ajrjord-wjwpkxifdbmrt-mijnfmzp 250-250-65 mg (Excedrin Extra Strength) 2 tabs PO Q6H PRN Do you need a note to return to daycare/school/sports/work: No HPI HPI Comments History of Present Illness Details 44 y/o Female patient who presents to [facility] walk in clinic with c/o Chronic Headaches for 3 days now. Pt reports taking OTC medications for pain with no relief. Reports Taking Acetaminophen 1000 mg with no relief. States that she does have h/o Chronic Migraine Headaches and usually takes Unknown Medicine from [place] [facility] for pain relief. She has been out of this medication about a month now. Pt has never seen a Neurologist before or had any imaging done. Denies any nausea or vomiting with headaches but endorses light and sound sensitivity. Denies blurry or double vision. ON LICENSE OF [facility] Medical History (Updated 08/29/25 @ 12:32 by Mary Ochoa NP) Generalized headaches Dizziness Hydrosalpinx Cyst of left breast Breast pain Frequency of urination Pelvic pain Hemorrhagic cyst of right ovary HSV-2 (herpes simplex virus 2) infection Benign breast cyst in female Surgical History H/O ovarian cystectomy Hx of tubal ligation Family History Maternal Aunt History of breast cancer Paternal Aunt History of breast cancer Mother HTN (hypertension) Social History Household Members: Spouse and Children Housing: House Alcohol intake: never Patient Tobacco Use Status: Never used Tobacco Current occupational status: employed 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 Sexual orientation: Straight/Heterosexual Gender identity: Female Female Reproductive History Menstrual Age of Menarche: 9 Review of Systems Const All systems reviewed & are unremarkable except as noted in HPI and below Physical Exam Vital Signs: Last Vital Signs Temp 98.1 F 08/29/25 11:51 Pulse 73 08/29/25 11:51 BP 130/78 08/29/25 11:51 Pulse Ox 98 08/29/25 11:51 BMI result Body Mass Index 26.2 Const General: no acute distress; No comfortable Nutritional Appearance: well nourished Orientation/consciousness: patient oriented x3 HEENT Head: Yes normocephalic Ears: external ears normal General nose exam: Normal external nose present Face and sinus: Yes sinuses nontender Resp Effort & Inspection: normal respiratory effort Cardio Heart sounds: S1 normal heart sound present and S2 normal heart sound present Neuro General: patient oriented x3, gait normal and moves all extremities Psych Speech and movement: Normal speech and movement present Assessment & Plan Assessment & Plan (1) Generalized headaches: Code(s): R51.9 - Headache, unspecified Plan: Ordered Excedrin Migraines. F/U with PCP for possible Neuro referral. Go to ED if headaches worse. Medications: New qnvsndb-rhpfnxuvlsqym-kbujdqmh 250-250-65 mg (Excedrin Extra Strength) 2 tabs PO Q6H PRN 30 tabs 0RF pain R51.9 - Headache, unspecified Coding Level of Care Code Est Pt Level 4 (67833) Diagnoses Generalized headaches R51.9 Time Spent (min) 20
[2025-08-29 11:51] VITALS: BP 130/78; PULSE 73; TEMP 36.7; O2SAT 98; BMI 26.2
--- OUTSIDE RECORDS SUMMARY | 2025-08-29 14:32 | XMS_ITS | Encounter Summary ---
Author Organization [employer] Address [address] [place] [address] 7 [place] [address] Care Team Providers Care Plant Operations Manager Name Role Phone Laure Salvador MD Primary Care Provider [phone] Reason for Visit * Reason Comments Med Refill Encounter Details Date Type Department Care Team ([facility] st Contact Info) Description 04/13/2024 Refill [facility] MED & PEDS [address] [place], [place] [phone] Laure Salvador MD [address] [place] [address] Social History Tobacco Use Types Packs/Day Years [...] documented as of this encounter Care Teams Plant Operations Manager Relationship Specialty Start Date End Date Laure Salvador MD [address] [place] [address] PCP - General Family Medicine 11/14/18 documented as of this encounter
--- OUTSIDE RECORDS SUMMARY | 2025-08-29 14:33 | XMS_ITS | Encounter Summary ---
Author Organization [employer] Address [address] [place] [address] 7 [place] [address] Care Team Providers Care Airport Utility Worker Name Role Phone Laure Salvador MD Primary Care Provider [phone] Reason for Visit * Reason Comments Med Refill Encounter Details Date Type Department Care Team ([facility] st Contact Info) Description 04/22/2024 Refill [facility] MED & PEDS [address] [place], [place] [phone] Laure Salvador MD [address] [place] [address] Social History Tobacco Use Types Packs/Day Years [...] documented as of this encounter Care Teams Airport Utility Worker Relationship Specialty Start Date End Date Laure Salvador MD [address] [place] [address] PCP - General Family Medicine 11/14/18 documented as of this encounter
--- OUTSIDE RECORDS SUMMARY | 2025-08-29 14:33 | XMS_ITS | Encounter Summary ---
Author Organization [employer] Address [address] [place] [address] Care Team Providers Care Veterinary Attendant Name Role Phone Laure Salvador MD Primary Care Provider [phone] Reason for Referral * Consultation (Routine) - Closed Specialty Diagnoses / Procedures Referred By Contada t Referred To Contact Urology Diagnoses Other hydronephrosis Danica Ponce MD [address] [place] [address] Phone: tel: fax: [facility] [address] [place], [place] Phone: tel: fax: Referral ID Status Reason Start Date Expiration Date V isits Requested Visits Authorized [id number] Closed Specialty Services Required 08/14/2025 08/13/2026 10 10 Encounter Details Date Type Department Care Team (Late st Contact Info) Description 06/21/2025 Orders Only [facility] MED & PEDS [address] [place] [address] Danica Ponce MD [address] [place] [address] Other hydronephrosis (Primary Dx) Social History Tobacco [...] documented as of this encounter Care Teams Veterinary Attendant Relationship Specialty Start Date End Date Laure Salvador MD [address] [place] [address] PCP - General Family Medicine 11/14/18 documented as of this encounter
--- OUTSIDE RECORDS SUMMARY | 2025-08-29 14:33 | XMS_ITS | Clinical Summary ---
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 Encounters Date Type Department Care Team Description 08/15/2025 Orders Only GENERIC EXTERNAL DATA DEPARTMENT Provider, Generic External Data 07/02/2025 9:30 AM EDT Office Visit [facility] MED & PEDS [address] [place] [address] Danica Ponce MD Blue nevus of cheek (Primary Dx); Seborrheic keratosis; Atypical nevus of back 07/02/2025 Travel 07/01/2025 Travel 06/21/2025 Orders Only [facility] MED & PEDS [address] [place] [address] Danica Ponce MD Other hydronephrosis (Primary Dx) [...] Procedure Name Priority Date/Time Associated Diagnosis Comments CYTOPATH-CELL ENHANCED Routine 08/15/2025 6:41 PM EDT US RENAL COMPLETE Routine 06/20/2025 3:2 4 PM EDT BI US BREAST LIMITED LEFT Routine 11/15/2024 2:30 PM EST THINPREP IMAGING PAP AND HPV MRNA E6/E7, WITH CT/NG, TRICHOMONAS Routine 10/20/2021 4:29 PM EST from Last 3 Months or Most Recently Relevant to Health Maintenance Results * Cytopath-cell enhanced (08/15/2025 6:41 PM EDT) 08/15/2025 6:41 PM EDT 08/16/2025 9:26 AM EDT [facility] - 08/21/2025 8:41 AM EDT ----- ------- Name: Brittani Lin Age/Sex: 44/F : 1980 Unit#: [id number] Attend Dr: Mary Philippe [facility]- Re08/15/25 Status: DEP REF Location: [facility] Disch: ----- ------- SPEC : [id number] RECD: 08/16/25 STATUS: ANNETTA HICKEY NUM: [id number] BEBA: 08/15/[address] [facility] [address]: Mary Philippe [facility] ENTERED: 08/16/25 SP TYPE: Cytology OTHR DR: Laure Salvador MD ORDERED: Cyto-enhanced Diagnosis Urine: Negative for high-grade urothelial carcinoma. Comment: Examination of a monolayer preparation slide shows many benign squamous cells, rare benign urothelial cells, and few red blood cells. Clinical History Urinary tract infection, site not specified Material Received Urine Gross Description Received is 50 cc of clear yellow fluid from which a ThinPrep slide is prepared. IHC S/NG Disclaimer NOTE: Unless otherwise stated, all tissue is formalin-fixed and paraffin-embedded. Some or all of the immunohistochemical tests reported herein may have been developed and their performance characteristics determined by [facility]. They have not been cleared or approved by the U.S. Food and Drug Administration (FDA). However, the FDA has determined that such clearance or approval is not necessary. This laboratory is certified under the Clinical Laboratory Improvement Amendments of 1988 (CLIA) as qualified to perform high complexity clinical laboratory testing. Copies To: Laure Salvador MD [address] [id number] Mary Philippe [facility] [address] [place] [address] Dr. [address] [place] [address] [email or web address] CONTINUED ON NEXT PAGE ----- ------- Name: Brittain Lin/Sex: 44/F : 1980 Unit#: [id number] Attend Dr: Mary Philippe [facility] Re08/15/25 Status: RAZA CHI Location: HO.LNP Disch: ----- ------- SPEC : [id number] RECD: 08/16/25 STATUS: ANNETTA HICKEY NUM: [id number] BEBA: 08/15/[address] [facility] [address]: Mary Philippe [facility] ENTERED: 08/16/25 SP TYPE: Cytology OTHR DR: Laure Salvador MD ORDERED: Cyto-enhanced ----- ------- Signed (signature on file) Fatemeh Acosta 08/21/25 0841 ----- ------- END OF REPORT Generic External Data Provider LAB CYTOLOGY [place] Final Result [facility] [address] [place] [address] [phone] * US Renal Complete (06/20/2025 3:24 PM EDT) Anatomical Region Laterality Modality Kidney Ultrasound 06/20/2025 3:24 PM EDT Narrative 06/20/2025 3:47 PM EDT [facility] Adult Primary Care [address] [place] [address] [place] [address] Ultrasound Report Signed Patient: Brittani Lin R#: [id number] : 1980 Acct:[id number] Age/Sex: 44 / F ADM Date: 06/20/25 Loc: HO.HMGCX Attending Dr: Danica Ponce MD Ordering Physician: Danica Ponce MD Date of Service: 06/20/25 Procedure(s): US renal BI Accession Number(s): [id number] cc: Danica Ponce MD; Laure Salvador MD [...] 06/20/25 1544 DD/ 1524 TD/TT: 06/20/25 1535 Director Business Intelligence: Procedure Note Donotuseinterpreter, Image - 06/20/2025 [facility] Adult Primary Care [address] [place] [address] [place] [address] Ultrasound Report Signed Patient: Brittani Lin LM R#: [id number] : 1980Acct:[id number] Age/Sex: 44 / FADM Date: 06/20/25 Loc: HO.HMGCX Attending Dr: Danica Ponce MD Ordering Physician: Danica Ponce MD Date of Service: 06/20/25 Procedure(s): US renal BI Accession Number(s): [id number] cc: Danica Ponce MD; Laure Salvador MD [...] 06/20/25 1544 DD/ 1524 TD/TT: 06/20/25 1535 Director Business Intelligence: us Danica Ponce MD IMG US PROCEDURES Final Res ult * BI US Breast Limited Left (11/15/2024 2:30 PM EST) Anatomical Region Laterality Modality Breast Left Ultrasound 11/15/2024 2:30 PM EST Narrative 11/15/2024 2:58 PM EST [facility] [address] [place], [place] [address] Ultrasound Report Signed Patient: Brittani Lin R#: [id number] : 1980 Acct:[id number] Age/Sex: 44 / F ADM Date: 11/15/24 Loc: HO.MAMMO Attending Dr: Laure Salvador MD Ordering Physician: Laure Salvador MD Date of Service: 11/15/24 Procedure(s): US breast LT limited mamm only Accession Number(s): [id number] cc: Laure Salvador MD EXAMINATION: MM DIAGNOSTIC [...] by: Skye Doan DO 11/15/2024 02:56 PM [facility] Dictated By: Skye Doan DO Signed By: <Electronically signed by Skye Doan DO in OV> 11/15/24 1456 DD/ 1430 TD/TT: 11/15/24 1452 Director Business Intelligence: Procedure Note Donotuseinterpreter, Image - 11/15/2024 [facility] [address] [place] [address] Ultrasound Report Signed Patient: Brittani Lin R#: [id number] : 1980Acct:[id number] Age/Sex: 44 / FADM Date: 11/15/24 Loc: HO.MAMMO Attending Dr: Laure Salvador MD Ordering Physician: Lauer Salvador MD Date of Service: 11/15/24 Procedure(s): US breast LT limited mamm only Accession Number(s): [id number] cc: Laure Salvador MD EXAMINATION: MM DIAGNOSTIC [...] 11/15/24 1456 DD/ 1430 TD/TT: 11/15/24 1452 Director Business Intelligence: us Laure Salvador MD IMG US PROCEDURES [...] test SurePath(TM) specimens have been determined by [employer]. The modifications have not been cleared or approved by the FDA. This assay has been validated pursuant to the CLIA regulations and is used for clinical purposes. For additional information, please refer to https://education.Synerchip/faq/VZI622 (This link is being provided for information/ [...] has been evaluated with computer assisted technology. [facility] Presales Engineer: SEE COMMENT [facility] Comment: ED, CT(ASCP) CT screening location: [place] [address] HPV nRNA E6/E7 Not Detected Not Detected [facility] Comment: Methodology: Tipple Worker-Mediated Amplification This assay detects E6/E7 viral messenger RNA (mRNA) from 14 high-risk HPV types (16,18,31,33,35,39,45,51,52,56,58,59,66,68). The analytical performance characteristics of this assay have been determined by [employer]. The modifications have not been cleared or approved by the FDA. This assay has been validated pursuant to the CLIA regulations and is used for clinical purposes. For additional information, please refer to http://BountyHunter.Synerchip/faq/TFZ141o9 (This link if provided for information/ educational purposes only.) Interpretation/Re sult: Negative for intraepithelial lesion or malignancy. [facility] LMP: NONE GIVEN [facility] Neisseria gonorrhoeae RNA, TMA, Urogenital NOT DETECTED NOT DETECTED [facility] Prev. BX: NONE GIVEN [facility] N LAB [facility] Prev. PAP: NONE GIVEN [facility] ON LAB SYSTEM SOURCE: Cervix [facility] Statement Of Adequacy: SEE COMMENT [facility] Comment: Satisfactory for evaluation. Endocervical/transformation zone component present. Age and/or menstrual status not provided Trichomonas vaginalis, QL, TMA, PAP Vial NOT DETECTED NOT DETECTED [facility] Comment: The analytical performance characteristics of this assay have been determined by [employer]. The modifications have not been cleared or approved by the FDA. This assay has been validated pursuant to the CLIA regulations and is used for clinical purposes. For additional information, please refer to http://BountyHunter.Synerchip/ faq/Trichomonastma (This link is being provided for information/ educational purposes only.) 10/20/2021 4:29 PM EST Shirin Newberry CNM LAB PATHOLOGY ORDERABLES Final Result [facility] [address] from Last 3 Months or Most Recently Relevant to Health Maintenance Insurance [facility] [place] [id number] Care Teams Fish Worm Grower Relationship Specialty Start Date End Date Laure Salvador MD [address] [place] [address] [place] [address] PCP - General Family Medicine 11/14/18
--- OUTSIDE RECORDS SUMMARY | 2025-08-29 14:33 | XMS_ITS | Encounter Summary ---
Author Organization [employer] Address [address] [place] [address] 7 [place] [address] Care Team Providers Care Mural Painter Name Role Phone Laure Salvador MD Primary Care Provider [phone] Encounter Details Date Type Department Care Team ([facility] Contact Info) Description 03/28/2023 Abstract [facility] CHC MED & PEDS [address] [place], [place] [phone] Laure Salvador MD [address] [place] [address] Social History Tobacco Use Types Packs/Day Years [...] on filedocumented in this encounter Care Teams Mural Painter Relationship Specialty Start Date End Date Laure Salvador MD [address] [place], [place] [phone] PCP - General Family Medicine 11/14/18 documented as of this encounter
== END 2025-08-29 12:36 | disposition home or self-care (01) ==
PROVIDERS: PCP Pediatrics; Visit Provider Nurse Practitioner Family
DX: R51.9 Headache, unspecified (principal)

== ENCOUNTER → 2025-08-29 11:19 | Outpatient (BNVA) | payer OTHER, SELFPAY | PROVIDERS: PCP Pediatrics; Visit Provider Nurse Practitioner Family | DX: H51.9 Unspecified disorder of binocular movement (principal); Z79.899 Other long term (current) drug therapy | CPT/HCPCS: 99212 ==

== ENCOUNTER 2025-10-05 14:17 | Outpatient (REF) | payer OTHER, SELFPAY ==
--- OUTSIDE RECORDS SUMMARY | 2025-10-05 14:23 | XMS_ITS | Encounter Summary ---
Author Organization [employer] Address [address] [place] [address] 7 [place] [address] Care Team Providers Care Product Development Assistant Name Role Phone Laure Salvador MD Primary Care Provider [phone] Encounter Details Date Type Department Care Team ([facility] Contact Info) Description 03/28/2023 Abstract [facility] CHC MED & PEDS [address] [place], [place] [phone] Laure Salvador MD [address] [place] [address] Social History Tobacco Use Types Packs/Day Years [...] on filedocumented in this encounter Care Teams Product Development Assistant Relationship Specialty Start Date End Date Laure Salvador MD [address] [place], [place] [phone] PCP - General Family Medicine 11/14/18 documented as of this encounter
--- OUTSIDE RECORDS SUMMARY | 2025-10-05 14:23 | XMS_ITS | Encounter Summary ---
Author Organization [employer] Address [address] [place] [address] 7 [place] [address] Care Team Providers Care Post Splitter Name Role Phone Laure Salvador MD Primary Care Provider [phone] Reason for Visit * Reason Comments Med Refill Encounter Details Date Type Department Care Team ([facility] st Contact Info) Description 04/13/2024 Refill [facility] CHC MED & PEDS [address] [place], [place] [phone] Laure Salvador MD [address] [place] [address] Social History Tobacco Use Types Packs/Day Years [...] documented as of this encounter Care Teams Post Splitter Relationship Specialty Start Date End Date Laure Salvador MD [address] [place] [address] PCP - General Family Medicine 11/14/18 documented as of this encounter
--- OUTSIDE RECORDS SUMMARY | 2025-10-05 14:23 | XMS_ITS | Encounter Summary ---
Author Organization [employer] Address [address] [place] [address] Care Team Providers Care Scutcher Tender Name Role Phone Laure Salvador MD Primary Care Provider [phone] Reason for Referral * Consultation (Routine) - Closed Specialty Diagnoses / Procedures Referred By Contada t Referred To Contact Urology Diagnoses Other hydronephrosis Danica Ponce MD [address] [place] [address] Phone: tel: fax: [facility] [address] [place], [place] Phone: tel: fax: Referral ID Status Reason Start Date Expiration Date V isits Requested Visits Authorized [id number] Closed Specialty Services Required 08/14/2025 08/13/2026 10 10 Encounter Details Date Type Department Care Team (Late st Contact Info) Description 06/21/2025 Orders Only [facility] CHC MED & PEDS [address] [place] [address] Danica Ponce MD [address] [place] [address] Other hydronephrosis (Primary Dx) Social History Tobacco [...] documented as of this encounter Care Teams Scutcher Tender Relationship Specialty Start Date End Date Laure Salvador MD [address] [place] [address] PCP - General Family Medicine 11/14/18 documented as of this encounter
--- OUTSIDE RECORDS SUMMARY | 2025-10-05 14:23 | XMS_ITS | Clinical Summary ---
Author Organization [employer] Address [address] [place] [address] 7 [place] [address] Care Team Providers Care Returned Item Clerk Name Role Phone Laure Salvador MD Primary Care Provider [phone] Allergies No known active allergies Medications SUMAtriptan (Imitrex) 25 MG tabletIndication s:Chronic migraine with aura without status migrainosus, not intractable Take 1 tablet (25 mg) by mouth 1 (one) time if needed for migraine for up to 60 doses. May repeat dose once in 2 hours if no relief. Do not exceed 2 doses in 24 hours. 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 MED & PEDS [address] [place] [id number] Daryl Christianson CNP Chronic migraine with aura without status migrainosus, not intractable (Primary Dx); Encounter for screening for malignant neoplasm of colon 09/04/2025 Travel 09/03/2025 Travel 08/15/2025 Orders Only GENERIC EXTERNAL DATA DEPARTMENT Provider, Generic External Data from Last 3 Months Immunizations Immunization Administration [...] Sign Reading Time Taken Comments Blood Pressure 116/62 09/04/2025 3:41 PM EDT Pulse 74 09/04/2025 3:41 PM EDT Temperature 36.3 C (97.3 F) 09/04/2025 3:41 PM EDT Respiratory Rate 12 09/04/2025 3:41 PM EDT Oxygen Saturation 97% 09/04/2025 3:41 PM EDT Inhaled Oxygen Concentration - - Weight 67.6 kg (149 lb) 09/04/2025 3:41 PM EDT Height 165.1 cm (5' 5 ) 09/04/2025 3:41 PM EDT Body Mass Index 24.79 09/04/2025 3:41 PM EDT Plan of Treatment Health Maintenance Due [...] CYTOPATH-CELL ENHANCED Routine 08/15/2025 6:41 PM EDT BI US BREAST LIMITED LEFT Routine 11/15/2024 2:30 PM EST THINPREP IMAGING PAP AND HPV MRNA E6/E7, WITH CT/NG, TRICHOMONAS Routine 10/20/2021 4:29 PM EST from Last 3 Months or Most Recently Relevant to Health Maintenance Results * Cytopath-cell enhanced (08/15/2025 6:41 PM EDT) 08/15/2025 6:41 PM EDT 08/16/2025 9:26 AM EDT [facility] - 08/21/2025 8:41 AM EDT ----- ------- Name: Brittani Lin Age/Sex: 44/F : 1980 Unit#: [id number] Attend Dr: Mary Philippe [facility]- Re08/15/25 Status: DEP REF Location: [facility] Disch: ----- ------- SPEC : [id number] RECD: 08/16/25 STATUS: ANNETTA HICKEY NUM: [id number] BEBA: 08/15/[address] [facility] [address]: Mary Philippe [facility] ENTERED: 08/16/25 SP TYPE: Cytology OTHR DR: [...] developed and their performance characteristics determined by [facility]. They have not been cleared or approved by the U.S. Food and Drug Administration (FDA). However, the FDA has determined that such clearance or approval is not necessary. This laboratory is certified under the Clinical Laboratory Improvement Amendments of 1988 (CLIA) as qualified to perform high complexity clinical laboratory testing. Copies To: Laure Salvador MD [address] [id number] Mary Philippe [facility] [address] [place] [address] [address]. [address] [place] [address] [email or web address] CONTINUED ON NEXT PAGE ----- ------- Name: Brittani Lin Age/Sex: 44/F : 1980 Unit#: [id number] Attend Dr: Mary Philippe [facility] Re08/15/25 Status: DEP REF Location: [facility] Disch: ----- ------- SPEC : [id number] RECD: 08/16/25 STATUS: ANNETTA HUNGSanjay NUM: [id number] BEBA: 08/15/[address] [facility] [address]: Mary Philippe [facility] ENTERED: 08/16/25 SP TYPE: Cytology OTHR DR: Laure Salvador MD ORDERED: Cyto-enhanced ----- ------- Signed (signature on file) Fatemeh Acosta 08/21/25 0841 ----- ------- END OF REPORT us Generic External Data Provider LAB CYTOLOGY RICO WILCOXLES Final Result [facility] [address] [place] [address] [phone] * BI US Breast Limited Left (11/15/2024 2:30 PM EST) Anatomical Region Laterality Modality Breast Left Ultrasound 11/15/2024 2:30 PM EST Narrative 11/15/2024 2:58 PM EST [facility] [address] [place] [address] Ultrasound Report Signed Patient: Brittani Lin R#: [id number] : 1980 Acct:[id number] Age/Sex: 44 / F ADM Date: 11/15/24 Loc: HO.MAMMO Attending Dr: Laure Salvador MD Ordering Physician: Laure Salvador MD Date of Service: 11/15/24 Procedure(s): US breast LT limited mamm only Accession Number(s): [id number] cc: Laure Salvador MD EXAMINATION: MM DIAGNOSTIC [...] by: Skye Doan DO 11/15/2024 02:56 PM [facility] Dictated By: Skye Doan DO Signed By: <Electronically signed by Skye Doan DO in OV> 11/15/24 1456 DD/ 1430 TD/TT: 11/15/24 1452 Manager Meat: Procedure Note Donotuseinterpreter, Image - 11/15/2024 [facility] [address] [place] [address] Ultrasound Report Signed Patient: Brittani Lin R#: [id number] : 1980Acct:[id number] Age/Sex: 44 / FADM Date: 11/15/24 Loc: HO.MAMMO Attending Dr: Laure Salvador MD Ordering Physician: Laure Salvador MD Date of Service: 11/15/24 Procedure(s): US breast LT limited mamm only Accession Number(s): [id number] cc: Laure Salvador MD EXAMINATION: MM DIAGNOSTIC [...] 11/15/24 1456 DD/ 1430 TD/TT: 11/15/24 1452 Manager Meat: us Laure Salvador MD IMG US PROCEDURES [...] test SurePath(TM) specimens have been determined by [employer]. The modifications have not been cleared or approved by the FDA. This assay has been validated pursuant to the CLIA regulations and is used for clinical purposes. For additional information, please refer to https://education.[employer]/faq/XZS017 (This link is being provided for information/ [...] been evaluated with computer assisted technology. [facility] Glove Stitcher: SEE COMMENT [facility] Comment: ED, CT(ASCP) CT screening location: [place] [address] HPV nRNA E6/E7 Not Detected Not Detected [facility] Comment: Methodology: Council Member-Mediated Amplification This assay detects E6/E7 viral messenger RNA (mRNA) from 14 high-risk HPV types (16,18,31,33,35,39,45,51,52,56,58,59,66,68). The analytical performance characteristics of this assay have been determined by [employer]. The modifications have not been cleared or approved by the FDA. This assay has been validated pursuant to the CLIA regulations and is used for clinical purposes. For additional information, please refer to http://[employer]Visual Threat/faq/GNR468c2 (This link if provided for information/ educational purposes only.) Interpretation/Re sult: Negative for intraepithelial lesion or malignancy. [facility] LMP: NONE [facility]IV[facility] Neisseria gonorrhoeae RNA, TMA, Urogenital NOT DETECTED NOT DETECTED [facility] Prev. BX: NONE [facility]IV[facility] Prev. PAP: NONE GIVEN [facility] SOURCE: Cervix [facility] Statement Of Adequacy: SEE COMMENT [facility] Comment: Satisfactory for evaluation. Endocervical/transformation zone component present. Age and/or menstrual status not provided Trichomonas vaginalis, QL, TMA, PAP Vial NOT DETECTED NOT DETECTED [facility] Comment: The analytical performance characteristics of this assay have been determined by [employer]. The modifications have not been cleared or approved by the FDA. This assay has been validated pursuant to the CLIA regulations and is used for clinical purposes. For additional information, please refer to http://[employer]/ faq/Trichomonastma (This link is being provided for information/ educational purposes only.) 10/20/2021 4:29 PM EST Shirin Newberry CNM LAB PATHOLOGY ORDERABLES Final Result [facility] [address] from Last 3 Months or Most Recently Relevant to Health Maintenance Insurance [facility] [place] [id number] Care Teams Returned Item Clerk Relationship Specialty Start Date End Date Laure Salvador MD [address] [place] [address] [place] [address] PCP - General Family Medicine 11/14/18
--- OUTSIDE RECORDS SUMMARY | 2025-10-05 14:23 | XMS_ITS | Encounter Summary ---
Author Organization [employer] Address [address] [place] [address] 7 [place] [address] Care Team Providers Care Cloth Drier Name Role Phone Laure Salvador MD Primary Care Provider [phone] Reason for Visit * Reason Comments Med Refill Encounter Details Date Type Department Care Team ([facility] st Contact Info) Description 04/22/2024 Refill [facility] CHC MED & PEDS [address] [place], [place] [phone] Laure Salvador MD [address] [place] [address] Social History Tobacco Use Types Packs/Day Years [...] documented as of this encounter Care Teams Cloth Drier Relationship Specialty Start Date End Date Laure Salvador MD [address] [place] [address] PCP - General Family Medicine 11/14/18 documented as of this encounter
[2025-10-05 15:27] LABS: Blood Urea Nitrogen 15 mg/dL (9-16); Estimated Glomerular Filt Rate > 60
== END 2025-10-05 14:18 | disposition home or self-care (01) ==
LOC: HO.HMGCLDS 14:17
PROVIDERS: PCP Pediatrics; Visit Provider Nurse Practitioner Family
DX: R31.29 Other microscopic hematuria (principal)
CPT/HCPCS: 36415; 82565; 84520

== ENCOUNTER 2025-10-08 15:14 | Outpatient (REF) | payer OTHER, SELFPAY ==
--- NOTE | ~2025-10-08 | CT_ITS ---
EXAMINATION: CT ABDOMEN AND PELVIS WITHOUT AND WITH CONTRAST CLINICAL INFORMATION: Gross hematuria. COMPARISON: No prior CT examination. Renal ultrasound dated 06/20/2025. TECHNIQUE: Noncontrast CT of the abdomen and pelvis is performed followed by split bolus contrast-enhanced images using 85 mL Omnipaque 350 contrast. Postcontrast imaging is performed during the combined nephrogram and excretion phase. Sagittal and coronal reformatted images were obtained on the technologist's workstation for both the precontrast and postcontrast phases. This CT examination was performed using dose optimization techniques as appropriate, variously including the following: *Automated exposure control *Adjustment of mA and/or kV according to patient size (this includes techniques or standardized protocols for targeted exams where dose is matched to indication/reason for exam; i.e. extremities or head) *Use of iterative reconstruction technique FINDINGS: LUNG BASES: Lung bases are clear. There is minor scarring or atelectasis in the right middle lobe and medial right lower lobe with minor dependent atelectasis. There are no effusions. The heart size is normal. Normal GE junction. LIVER, GALLBLADDER, AND BILIARY TREE: The liver is normal in size, shape, and attenuation. No focal hepatic lesion or biliary ductal dilatation is present. The gallbladder is unremarkable with no evidence of radiopaque gallstones, gallbladder wall thickening, or obvious pericholecystic inflammatory changes. PANCREAS: Unremarkable. SPLEEN: Unremarkable. ADRENAL GLANDS: Unremarkable. KIDNEYS AND URETERS: Noncontrast acquisition demonstrates no evidence of renal calculi in either kidney. There are numerous left parapelvic simple cysts, and a few right parapelvic simple cyst. Postcontrast examination with delay demonstrates symmetric enhancement of both kidneys. No evidence of hydronephrosis of either kidney. No evidence of mass, calyceal or ureteral filling defect, or significant perirenal stranding. The ureters are nondilated. BLADDER: Both pre and postcontrast imaging of the urinary bladder demonstrates no evidence of calculus, wall thickening, or mass lesion. GASTROINTESTINAL TRACT: The stomach is somewhat decompressed. The GE junction appears normal. The duodenum appears normal. The small bowel is normal in caliber and course without evidence of wall thickening or inflammation. No CT evidence of appendicitis is seen. The colon is normal in caliber, course, and appearance without wall thickening or inflammation. The rectum demonstrates no abnormalities. ABDOMINAL WALL: No significant hernia is appreciated. LYMPH NODES: There is no abnormal lymphadenopathy present. VASCULAR: The vascular structures are normal. PELVIC VISCERA: The uterus and adnexal structures are normal in appearance. There is a corpus luteal cyst in the right ovary. There is a small left-sided hydrosalpinx, seen on previous ultrasound imaging. OSSEUS STRUCTURES: There is no suspicious lytic or blastic bone lesion identified. Severe disc degeneration is present at L5-S1 with sclerosis of the endplates and disc vacuum phenomenon. There is transitional lumbosacral anatomy noted. CT/CT urogram IMPRESSION: 1. No etiology for hematuria is identified. There are no urological calculi, masses, or other significant abnormalities. There are bilateral left greater than right parapelvic renal cysts. The ureters and urinary bladder appear normal. 2. No acute findings in the abdomen or pelvis. See the body of the report for ancillary findings. Electronically signed by: Joe Pabon MD 10/08/2025 04:12 PM EMI
[2025-10-08] MEDS: iohexoL 350 MG/ML 100 ML INFUS..BTL IV (15:24)
--- OUTSIDE RECORDS SUMMARY | 2025-10-08 18:55 | XMS_ITS | Encounter Summary ---
Author Organization [employer] Address [address] [place] [address] Care Team Providers Care Sweet Pickled Fruit Maker Name Role Phone Laure Salvador MD Primary Care Provider [phone] Reason for Referral * Consultation (Routine) - Closed Specialty Diagnoses / Procedures Referred By Contada t Referred To Contact Urology Diagnoses Other hydronephrosis Danica Ponce MD [address] [place] [address] Phone: tel: fax: [facility] [address] [place], [place] Phone: tel: fax: Referral ID Status Reason Start Date Expiration Date V isits Requested Visits Authorized [id number] Closed Specialty Services Required 08/14/2025 08/13/2026 10 10 Encounter Details Date Type Department Care Team (Late st Contact Info) Description 06/21/2025 Orders Only [facility] CHC MED & PEDS [address] [place] [address] Danica Ponce MD [address] [place] [address] Other hydronephrosis (Primary Dx) Social History Tobacco [...] documented as of this encounter Care Teams Sweet Pickled Fruit Maker Relationship Specialty Start Date End Date Laure Salvador MD [address] [place] [address] PCP - General Family Medicine 11/14/18 documented as of this encounter
--- OUTSIDE RECORDS SUMMARY | 2025-10-08 18:55 | XMS_ITS | Encounter Summary ---
Author Organization [employer] Address [address] [facility] [address] [place] [address] Care Team Providers Care Utility Aircrewman Name Role Phone Laure Salvador MD Primary Care Provider [phone] Encounter Details Date Type Department Care Team (Late st Contact Info) Description 10/05/2025 Orders Only GENERIC EXTERNAL DATA DEPARTMENT Provider, [...] Procedure Name Priority Date/Time Associated Diagnosis Comments CT UROGRAM WO CONTRAST Routine 10/08/2025 3:25 PM EST CREATININE, SERUM Routine 10/05/2025 2:2 2 PM EST UREA NITROGEN (BUN) Routine 10/05/2025 2 :22 PM EST documented in this encounter Results * CT Urogram w/o Contrast (10/08/2025 3:25 PM EST) Anatomical Region Laterality Modality Ureter, Upper urinary tract Comp uted Tomography 10/08/2025 3:25 PM EST Narrative 10/08/2025 4:15 PM EST [place] [address] CT Scan Report Signed Patient: Brittani Lin#: [id number] : 1980 Acct:[id number] Age/Sex: 44 / F ADM Date: 10/08/25 Loc: .CT Attending Dr: Mary HUNT Ordering Physician: Mary Philippe Date of Service: 10/08/25 Procedure(s): CT urogram Accession Number(s): [id number] cc: Laure Salvador MD; Mary Philippe Report Number: [id number]: Total DLP = 638.00 mGy-cm Reason for Exam: R31.0 - Gross hematuria EXAMINATION: CT ABDOMEN AND PELVIS WITHOUT AND WITH CONTRAST CLINICAL INFORMATION: Gross hematuria. COMPARISON: No prior CT examination. Renal ultrasound dated 06/20/2025. TECHNIQUE: Noncontrast CT of the abdomen and pelvis is performed followed by split bolus contrast-enhanced images using 85 mL Omnipaque 350 contrast. Postcontrast imaging is performed during the combined nephrogram and excretion phase. Sagittal and coronal reformatted images were obtained on the technologist's workstation for both the precontrast and postcontrast phases. This CT examination was performed using dose optimization techniques as appropriate, variously including the following: *Automated exposure control *Adjustment of mA and/or kV according to patient size (this includes techniques or standardized protocols for targeted exams where dose is matched to indication/reason for exam; i.e. extremities or head) *Use of iterative reconstruction technique FINDINGS: LUNG BASES: Lung bases are clear. There is minor scarring or atelectasis in the right middle lobe and medial right lower lobe with minor dependent atelectasis. There are no effusions. The heart size is normal. Normal GE junction. LIVER, GALLBLADDER, AND BILIARY TREE: The liver is normal in size, shape, and attenuation. No focal hepatic lesion or biliary ductal dilatation is present. The gallbladder is unremarkable with no evidence of radiopaque gallstones, gallbladder wall thickening, or obvious pericholecystic inflammatory changes. PANCREAS: Unremarkable. SPLEEN: Unremarkable. ADRENAL GLANDS: Unremarkable. KIDNEYS AND URETERS: Noncontrast acquisition demonstrates no evidence of renal calculi in either kidney. There are numerous left parapelvic simple cysts, and a few right parapelvic simple cyst. Postcontrast examination with delay demonstrates symmetric enhancement of both kidneys. No evidence of hydronephrosis of either kidney. No evidence of mass, calyceal or ureteral filling defect, or significant perirenal stranding. The ureters are nondilated. BLADDER: Both pre and postcontrast imaging of the urinary bladder demonstrates no evidence of calculus, wall thickening, or mass lesion. GASTROINTESTINAL TRACT: The stomach is somewhat decompressed. The GE junction appears normal. The duodenum appears normal. The small bowel is normal in caliber and course without evidence of wall thickening or inflammation. No CT evidence of appendicitis is seen. The colon is normal in caliber, course, and appearance without wall thickening or inflammation. The rectum demonstrates no abnormalities. ABDOMINAL WALL: No significant hernia is appreciated. LYMPH NODES: There is no abnormal lymphadenopathy present. VASCULAR: The vascular structures are normal. PELVIC VISCERA: The uterus and adnexal structures are normal in appearance. There is a corpus luteal cyst in the right ovary. There is a small left-sided hydrosalpinx, seen on previous ultrasound imaging. OSSEUS STRUCTURES: There is no suspicious lytic or blastic bone lesion identified. Severe disc degeneration is present at L5-S1 with sclerosis of the endplates and disc vacuum phenomenon. There is transitional lumbosacral anatomy noted. CT/CT urogram IMPRESSION: 1. No etiology for hematuria is identified. There are no urological calculi, masses, or other significant abnormalities. There are bilateral left greater than right parapelvic renal cysts. The ureters and urinary bladder appear normal. 2. No acute findings in the abdomen or pelvis. See the body of the report for ancillary findings. Electronically signed by: Joe Pabon MD 10/08/2025 04:12 PM [facility] [place] Dictated By: Joe Pabon MD Signed By: <Electronically signed by Joe Pabon MD in OV> 10/08/25 1612 DD/ 1525 TD/TT: 10/08/25 1545 Embedded Case Manager: Procedure Note Donotuseinterpreter, Image - 10/08/[address] [place] [address] [address] Scan Report Signed Patient: Brittani Lin LM R#: [id number] : 1980Acct:[id number] Age/Sex: 44 / FADM Date: 10/08/25 Loc: .CT Attending Dr: Mary HUNT Ordering Physician: Mary Philippe Date of Service: 10/08/25 Procedure(s): CT urogram Accession Number(s): [id number] cc: Laure Salvador MD; Mary Philippe Report Number: [id number]: Total DLP = 638.00 mGy-cm Reason for Exam: R31.0 - Gross hematuria EXAMINATION: CT ABDOMEN AND PELVIS WITHOUT AND WITH CONTRAST CLINICAL INFORMATION: Gross hematuria. COMPARISON: No prior CT examination. Renal ultrasound dated 06/20/2025. TECHNIQUE: Noncontrast CT of the abdomen and pelvis is performed followed by split bolus contrast-enhanced images using 85 mL Omnipaque 350 contrast. Postcontrast imaging is performed during the combined nephrogram and excretion phase. Sagittal and coronal reformatted images were obtained on the technologist's workstation for both the precontrast and postcontrast phases. This CT examination was performed using dose optimization techniques as appropriate, variously including the following: *Automated exposure control *Adjustment of mA and/or kV according to patient size (this includes techniques or standardized protocols for targeted exams where dose is matched to indication/reason for exam; i.e. extremities or head) *Use of iterative reconstruction technique FINDINGS: LUNG BASES: Lung bases are clear. There is minor scarring or atelectasis in the right middle lobe and medial right lower lobe with minor dependent atelectasis. There are no effusions. The heart size is normal. Normal GE junction. LIVER, GALLBLADDER, AND BILIARY TREE: The liver is normal in size, shape, and attenuation. No focal hepatic lesion or biliary ductal dilatation is present. The gallbladder is unremarkable with no evidence of radiopaque gallstones, gallbladder wall thickening, or obvious pericholecystic inflammatory changes. PANCREAS: Unremarkable. SPLEEN: Unremarkable. ADRENAL GLANDS: Unremarkable. KIDNEYS AND URETERS: Noncontrast acquisition demonstrates no evidence of renal calculi in either kidney. There are numerous left parapelvic simple cysts, and a few right parapelvic simple cyst. Postcontrast examination with delay demonstrates symmetric enhancement of both kidneys. No evidence of hydronephrosis of either kidney. No evidence of mass, calyceal or ureteral filling defect, or significant perirenal stranding. The ureters are nondilated. BLADDER: Both pre and postcontrast imaging of the urinary bladder demonstrates no evidence of calculus, wall thickening, or mass lesion. GASTROINTESTINAL TRACT: The stomach is somewhat decompressed. The GE junction appears normal. The duodenum appears normal. The small bowel is normal in caliber and course without evidence of wall thickening or inflammation. No CT evidence of appendicitis is seen. The colon is normal in caliber, course, and appearance without wall thickening or inflammation. The rectum demonstrates no abnormalities. ABDOMINAL WALL: No significant hernia is appreciated. LYMPH NODES: There is no abnormal lymphadenopathy present. VASCULAR: The vascular structures are normal. PELVIC VISCERA: The uterus and adnexal structures are normal in appearance. There is a corpus luteal cyst in the right ovary. There is a small left-sided hydrosalpinx, seen on previous ultrasound imaging. OSSEUS STRUCTURES: There is no suspicious lytic or blastic bone lesion identified. Severe disc degeneration is present at L5-S1 with sclerosis of the endplates and disc vacuum phenomenon. There is transitional lumbosacral anatomy noted. CT/CT urogram IMPRESSION: 1. No etiology for hematuria is identified. There are no urological calculi, masses, or other significant abnormalities. There are bilateral left greater than right parapelvic renal cysts. The ureters and urinary bladder appear normal. 2. No acute findings in the abdomen or pelvis. See the body of the report for ancillary findings. Electronically signed by: Joe Pabon MD 10/08/2025 04:12 PM EST Dictated By: Joe Pabon MD Signed By: <Electronically signed by Joe Pabon MD in OV> 10/08/25 1612 DD/ 1525 TD/TT: 10/08/25 1545 Embedded Case Manager: [facility] External Provider IMG CT PROCEDURES Final Result * Creatinine, Serum (10/05/2025 2:22 PM EST) [facility] Signature Creatinine, Serum 0.75 0.5 - 1.4 mg/dL [facility] Estimated Glomerular Filt Rate >60 [facility] Comment:Chronic Kidney Disea se: Estimated GFR < 60 mL/min/1.59p8Eqvsmp Kidney Disease: Estimated GFR < 15 mL/min/1.73m2 10/05/2025 2:22 PM EST 10/05/2025 3:07 PM EST Generic External Data Provider LAB BLOOD ORDERAB LES Final Result [facility] [address] [place] [phone] * BUN (Blood Urea Nitrogen) (10/05/2025 2:22 PM EST) Urea Nitrogen (BUN) 15 9 - 16 mg/dL [facility] 10/05/2025 2:22 PM EST 10/05/2025 3:07 PM EST us Generic External Data Provider LAB BLOOD ORDERAB LES Final Result [facility] [address] [place] [address] [phone] documented in this encounter Visit Diagnoses Not on filedocumented in this encounter Additional Health Concerns Assessment Noted Time PHQ-9 Depression Total Score: 0 01/19/20 24 3:36 PM EST documented as of this encounter Care Teams Utility Aircrewman Relationship Specialty Start Date End Date Laure Salvador MD [address] [place] [address] PCP - General Family Medicine 11/14/18 documented as of this encounter
--- OUTSIDE RECORDS SUMMARY | 2025-10-08 18:55 | XMS_ITS | Encounter Summary ---
Author Organization [employer] Address [address] [place] [address] 7 [place] [address] Care Team Providers Care Hose Cementer Name Role Phone Laure Salvador MD Primary Care Provider [phone] Reason for Visit * Reason Comments Med Refill Encounter Details Date Type Department Care Team ([facility] st Contact Info) Description 04/13/2024 Refill [facility] [address] [place], [place] [phone] Laure Salvador MD [address] [place] [address] Social History Tobacco Use Types Packs/Day Years [...] documented as of this encounter Care Teams Hose Cementer Relationship Specialty Start Date End Date Laure Salvador MD [address] [place] [address] PCP - General Family Medicine 11/14/18 documented as of this encounter
--- OUTSIDE RECORDS SUMMARY | 2025-10-08 18:55 | XMS_ITS | Encounter Summary ---
Author Organization [employer] Address [address] [place] [address] 7 [place] [address] Care Team Providers Care Metal Burnisher Name Role Phone Laure Salvador MD Primary Care Provider [phone] Reason for Visit * Reason Comments Med Refill Encounter Details Date Type Department Care Team ([facility] st Contact Info) Description 04/22/2024 Refill [facility]ED[facility] [address] [place], [place] [phone] Laure Salvador MD [address] [place] [address] Social History Tobacco Use Types Packs/Day Years [...] documented as of this encounter Care Teams Metal Burnisher Relationship Specialty Start Date End Date Laure Salvador MD [address] [place] [phone] PCP - General Family Medicine 11/14/18 documented as of this encounter
--- OUTSIDE RECORDS SUMMARY | 2025-10-08 18:55 | XMS_ITS | Encounter Summary ---
Author Organization [employer] Address [address] [place] [address] 7 [place] [address] Care Team Providers Care Wash Oil Pump Operator Name Role Phone Laure Salvador MD Primary Care Provider [phone] Encounter Details Date Type Department Care Team ([facility] Contact Info) Description 03/28/[address] [facility] MED [facility] PEDS [address] [place], [place] [phone] Laure Salvador MD [address] [place] [address] Social History Tobacco Use Types Packs/Day Years [...] on filedocumented in this encounter Care Teams Wash Oil Pump Operator Relationship Specialty Start Date End Date Laure Salvador MD [address] [place], [place] [phone] PCP - General Family Medicine 11/14/18 documented as of this encounter
--- OUTSIDE RECORDS SUMMARY | 2025-10-08 18:55 | XMS_ITS | Clinical Summary ---
Author Organization [employer] Address [address] [place] [address] 7 [place] [address] Care Team Providers Care Chief Analytics Officer Name Role Phone Laure Salvador MD Primary Care Provider [phone] Allergies No known active allergies Medications SUMAtriptan [...] Encounters Date Type Department Care Team Description 10/05/2025 Orders Only GENERIC EXTERNAL DATA DEPARTMENT Provider, Generic External Data 09/04/2025 3:45 PM EDT Office Visit [facility] [address] [place] [address] Daryl Christianson CNP Chronic migraine with aura [...] (BUN) Routine 10/05/2025 2 :22 PM EST CYTOPATH-CELL ENHANCED Routine 08/15/2025 6:41 PM EDT BI US BREAST LIMITED LEFT Routine 11/15/2024 2:30 PM EST THINPREP IMAGING PAP AND HPV MRNA E6/E7, WITH CT/NG, TRICHOMONAS Routine 10/20/2021 4:29 PM EST from Last 3 Months or Most Recently Relevant to Health Maintenance Results * CT Urogram w/o Contrast (10/08/2025 3:25 PM EST) Anatomical Region Laterality Modality Ureter, Upper urinary tract Comp uted Tomography 10/08/2025 3:25 PM EST Narrative 10/08/2025 4:15 PM EST [address] [address] [address] Scan Report Signed Patient: Brittani Lin Andrew#: [id number] : 1980 Acct:[id number] Age/Sex: 44 / F ADM Date: 10/08/25 Loc: HO.CT Attending Dr: Mary FOY Ordering Physician: Mary Philippe Date of Service: 10/08/25 Procedure(s): CT urogram Accession Number(s): [id number] cc: Laure Salvador MD; Mary Philippe [facility]- Report Number: [id number]: Total DLP = 638.00 mGy-cm Reason for [...] by: Joe Pabon MD 10/08/2025 04:12 PM [facility] Dictated By: Joe Pabon MD Signed By: <Electronically signed by Joe Pabon MD in OV> 10/08/25 1612 DD/ 1525 TD/TT: 10/08/25 1545 Electric Tripper Machine Operator: Procedure Note Donotuseinterpreter, Image - 10/08/[address] [address] [address] Scan Report Signed Patient: Brittani Lin LM R#: [id number] : 1980Acct:[id number] Age/Sex: 44 / FADM Date: 10/08/25 Loc: HO.CT Attending Dr: Mary GREENE- Ordering Physician: Mary Philippe Date of Service: 10/08/25 Procedure(s): CT urogram Accession Number(s): [id number] cc: Laure Salvador MD; Mary Philippe [facility]- Report Number: [id number]: Total DLP = 638.00 mGy-cm Reason for [...] 10/08/25 1612 DD/ 1525 TD/TT: 10/08/25 1545 Electric Tripper Machine Operator: us [facility] External Provider IMG CT PROCEDURES Final Result * Creatinine, Serum (10/05/2025 2:22 PM EST) Creatinine, Serum 0.75 0.5 - 1.4 mg/dL [facility] Estimated Glomerular Filt Rate >60 [facility] Comment:Chronic Kidney Disea se: Estimated GFR < 60 mL/min/1.50b6Pketxe Kidney Disease: Estimated GFR < 15 mL/min/1.73m2 10/05/2025 2:22 PM EST 10/05/2025 3:07 PM EST us Generic External Data Provider LAB BLOOD ORDERAB LES Final Result Performing Organization Address [facility]/ZIP Co de Phone Number [facility] [address] [place] [phone] * BUN (Blood Urea Nitrogen) (10/05/2025 2:22 PM EST) Urea Nitrogen (BUN) 15 9 - 16 mg/dL [facility] 10/05/2025 2:22 PM EST 10/05/2025 3:07 PM EST Generic External Data Provider LAB BLOOD ORDERAB LES Final Result Performing Organization Address [facility] de Phone Number [facility] [address] [place] [phone] * Cytopath-cell enhanced (08/15/2025 6:41 PM EDT) 08/15/2025 6:41 PM EDT 08/16/2025 9:26 AM EDT [facility] - 08/21/2025 8:41 AM EDT ----- ------- Name: Brittani Lin Age/Sex: 44/F : 1980 Unit#: [id number] Attend Dr: Mary Philippe [facility]- Re08/15/25 Status: DEP REF Location: [facility] Disch: ----- ------- SPEC : [id number] RECD: 08/16/25 STATUS: ANNETTA HICKEY NUM: [id number] BEBA: 08/15/[address] [facility] [address]: Mary Philippe [facility] ENTERED: 08/16/25 SP TYPE: Cytology OTHR [...] developed and their performance characteristics determined by [facility]. They have not been cleared or approved by the U.S. Food and Drug Administration (FDA). However, the FDA has determined that such clearance or approval is not necessary. This laboratory is certified under the Clinical Laboratory Improvement Amendments of 1988 (CLIA) as qualified to perform high complexity clinical laboratory testing. Copies To: Laure Salvador MD [address] [address] Mary Philippe [facility] [address] [place] [address] [address] [place] [address] [email or web address] CONTINUED ON NEXT PAGE ----- ------- Name: Brittani Lin Age/Sex: 44/F : 1980 Unit#: [id number] Attend Dr: Mary Philippe [facility] Re08/15/25 Status: DEP REF Location: [facility] Disch: ----- ------- SPEC : [id number] RECD: 08/16/25 STATUS: ANNETTA HICKEY NUM: [id number] BEBA: 08/15/[address] [facility] [address]: Mary Philippe [facility] ENTERED: 08/16/25 SP TYPE: Cytology OTHR DR: Laure Salvador MD ORDERED: Cyto-enhanced ----- ------- Signed (signature on file) Fatemeh Dave 08/21/25 0841 ----- ------- END OF REPORT us Generic External Data Provider LAB CYTOLOGY R[place]O Final Result [facility] [address] [place] [address] [phone] * BI US Breast Limited Left (11/15/2024 2:30 PM EST) Anatomical Region Laterality Modality Breast Left Ultrasound 11/15/2024 2:30 PM EST Narrative 11/15/2024 2:58 PM EST [facility] [address] [place] [address] Ultrasound Report Signed Patient: Brittani Lin#: [id number] : 1980 Acct:[id number] Age/Sex: 44 / F ADM Date: 11/15/24 Loc: HO.MAMMO Attending Dr: Laure Salvador MD Ordering Physician: Laure Salvador MD Date of Service: 11/15/24 Procedure(s): US breast LT limited mamm only Accession Number(s): [id number] cc: Laure Salvador MD EXAMINATION: MM DIAGNOSTIC [...] by: Skye Doan DO 11/15/2024 02:56 PM [facility] Dictated By: Skye Doan DO Signed By: <Electronically signed by Skye Doan DO in OV> 11/15/24 1456 DD/ 1430 TD/TT: 11/15/24 1452 Electric Tripper Machine Operator: Procedure Note Donotuseinterpreter, Image - 11/15/[address] [place] [address] Ultrasound Report Signed Patient: Brittani Lin R#: [id number] : 1980Acct:[id number] Age/Sex: 44 / FADM Date: 11/15/24 Loc: MAMMO Attending Dr: Laure Salvador MD Ordering Physician: Laure Salvador MD Date of Service: 11/15/24 Procedure(s): US breast LT limited mamm only Accession Number(s): [id number] cc: Laure Salvador MD EXAMINATION: MM DIAGNOSTIC [...] Doan DO 11/15/2024 02:56 PM EST RP Workstation: [employer] Dictated By: Skye Doan DO Signed By: <Electronically signed by Skye Doan DO in OV> 11/15/24 1456 DD/ 1430 TD/TT: 11/15/24 1452 Electric Tripper Machine Operator: us Laure Salvador MD IMG US PROCEDURES Edited Resu lt - Final * THINPREP TIS PAP AND HPV mRNA E6/E7, CT/NG, TRICH (10/20/2021 4:29 PM EST) Chlamydia trachomatis RNA, TMA, Urogenital NOT DETECTED NOT DETECTED [facility] Clinical Information: Z113 Z124 [facility] COMMENT SEE COMMENT [facility] Comment: The analytical performance characteristics of this assay, when used to test SurePath(TM) specimens have been determined by [employer]. The modifications have not been cleared or approved by the FDA. This assay has been validated pursuant to the CLIA regulations and is used for clinical purposes. For additional information, please refer to https://education.Quill/faq/IKB308 (This link is being provided for information/ [...] has been evaluated with computer assisted technology. [facility] Lockstitch Topstitcher: SEE COMMENT [facility] Comment: ED, CT(ASCP) CT screening location: [place] [address] HPV nRNA E6/E7 Not Detected Not Detected [facility] Comment: Methodology: Radiologic Tech-Mediated Amplification This assay detects E6/E7 viral messenger RNA (mRNA) from 14 high-risk HPV types (16,18,31,33,35,39,45,51,52,56,58,59,66,68). The analytical performance characteristics of this assay have been determined by [employer]. The modifications have not been cleared or approved by the FDA. This assay has been validated pursuant to the CLIA regulations and is used for clinical purposes. For additional information, please refer to http://[employer]Inc.Quill/faq/FAF047o3 (This link if provided for information/ educational [...] [facility] Statement Of Adequacy: SEE COMMENT [facility] Comment: Satisfactory for evaluation. Endocervical/transformation zone component present. Age and/or menstrual status not provided Trichomonas vaginalis, QL, TMA, PAP Vial NOT DETECTED NOT DETECTED [facility] Comment: The analytical performance characteristics of this assay have been determined by [employer]. The modifications have not been cleared or approved by the FDA. This assay has been validated pursuant to the CLIA regulations and is used for clinical purposes. For additional information, please refer to http://education.Quill/ faq/Trichomonastma (This link is being provided for information/ educational purposes only.) 10/20/2021 4:29 PM EST Shirin Newberry CNM LAB PATHOLOGY ORDERABLES Final Result [facility] [address] [place] [address], from Last 3 Months or Most Recently Relevant to Health Maintenance Insurance [facility] Care Teams Chief Analytics Officer Relationship Specialty Start Date End Date Laure Salvador MD [address] [place] [address] [place] [address] PCP - General Family Medicine 11/14/18
== END 2025-10-08 15:15 | disposition home or self-care (01) ==
LOC: HO.CT 15:14
PROVIDERS: PCP Pediatrics; Visit Provider Nurse Practitioner Family
DX: R31.0 Gross hematuria (principal)
CPT/HCPCS: 74178; Q9967

== ENCOUNTER → 2025-10-08 15:18 | Outpatient (BNV) | payer OTHER, SELFPAY | PROVIDERS: PCP Pediatrics; Visit Provider Radiology Diagnostic Radiology | DX: R31.0 Gross hematuria (principal) | CPT/HCPCS: 74178 ==

== ENCOUNTER 2025-10-17 14:59 | Outpatient (REF) | payer OTHER, SELFPAY ==
--- OUTSIDE RECORDS SUMMARY | 2025-10-17 21:32 | XMS_ITS | Clinical Summary ---
Author Organization [employer] Address [address] [place] [address] 7 [place] [address] Care Team Providers Care Probation Officer Name Role Phone Laure Salvador MD Primary Care Provider [phone] Allergies No known active allergies Medications SUMAtriptan [...] Data 09/04/2025 3:45 PM EDT Office Visit [place] [facility] [address] [place] [address] Daryl Christianson CNP Chronic migraine with aura [...] PM EST Narrative 10/08/2025 4:15 PM EST [address] [address] [address] Scan Report Signed Patient: Brittani Lin Andrew#: [id number] : 1980 Acct:[id number] Age/Sex: 44 / F ADM Date: 10/08/25 Loc: HO.CT Attending Dr: Mary FOY Ordering Physician: Mary Philippe Date of Service: 10/08/25 Procedure(s): CT urogram Accession Number(s): [id number] cc: Laure Salvador MD; Mary Philippe [facility]- Report Number: [id number]: Total DLP = 638.00 mGy-cm Reason for [...] for ancillary findings. Electronically signed by: Joe Paobn MD 10/08/2025 04:12 PM [facility] Dictated By: Joe Pabon MD Signed By: <Electronically signed by Joe Pabon MD in OV> 10/08/25 1612 DD/ 1525 TD/TT: 10/08/25 1545 Engagement Director: Procedure Note Donotuseinterpreter, Image - 10/08/[address] [address] [address] Scan Report Signed Patient: Brittani Lin LM R#: [id number] : 1980Acct:[id number] Age/Sex: 44 / FADM Date: 10/08/25 Loc: HO.CT Attending Dr: Mary GREENE- Ordering Physician: Mary Philippe Date of Service: 10/08/25 Procedure(s): CT urogram Accession Number(s): [id number] cc: Laure Salvador MD; Mary Philippe [facility]- Report Number: [id number]: Total DLP = 638.00 mGy-cm Reason for [...] 10/08/25 1612 DD/ 1525 TD/TT: 10/08/25 1545 Engagement Director: us [facility] External Provider IMG CT PROCEDURES Final Result * Creatinine, Serum (10/05/2025 2:22 PM EST) Creatinine, Serum 0.75 0.5 - 1.4 mg/dL [facility] Estimated Glomerular Filt Rate >60 [facility] Comment:Chronic Kidney Disea se: Estimated GFR < 60 mL/min/1.48c9Hfmngv Kidney Disease: Estimated GFR < 15 mL/min/1.73m2 10/05/2025 2:22 PM EST 10/05/2025 3:07 PM EST us Generic External Data Provider LAB BLOOD ORDERAB LES Final Result Performing Organization Address [facility]/ZIP Co de Phone Number [facility] [address] [place] [phone] * BUN (Blood Urea Nitrogen) (10/05/2025 2:22 PM EST) Urea Nitrogen (BUN) 15 9 - 16 mg/dL [facility] 10/05/2025 2:22 PM EST 10/05/2025 3:07 PM EST Generic External Data Provider LAB BLOOD ORDERAB LES Final Result Performing Organization Address [facility] de Phone Number [facility] [address] [place] [phone] * Cytopath-cell enhanced (08/15/2025 6:41 PM EDT) 08/15/2025 6:41 PM EDT 08/16/2025 9:26 AM EDT [facility] - 08/21/2025 8:41 AM EDT ----- ------- Name: Brittani Lin Age/Sex: 44/F : 1980 Unit#: [id number] Attend Dr: Mary Philippe [facility]- Re08/15/25 Status: DEP REF Location: [facility] Disch: ----- ------- SPEC : [id number] RECD: 08/16/25 STATUS: ANNETTA HICKEY NUM: [id number] BEBA: 08/15/25 [facility] DR: Mary Philippe [facility] ENTERED: 08/16/25 SP TYPE: Cytology OTHR DR: [...] developed and their performance characteristics determined by [facility]. They have not been cleared or approved by the U.S. Food and Drug Administration (FDA). However, the FDA has determined that such clearance or approval is not necessary. This laboratory is certified under the Clinical Laboratory Improvement Amendments of 1988 (CLIA) as qualified to perform high complexity clinical laboratory testing. Copies To: Laure Salvador MD [address] [address] Mary Philippe [facility] [address] [place] [address] [address] [place] [address] [email or web address] CONTINUED ON NEXT PAGE ----- ------- Name: Brittani Lin Age/Sex: 44/F : 1980 Unit#: [id number] Attend Dr: Mary Philippe [facility] Re08/15/25 Status: DEP REF Location: [facility] Disch: ----- ------- SPEC : [id number] RECD: 08/16/25 STATUS: ANNETTA HICKEY NUM: [id number] BEBA: 08/15/25 [facility] DR: Mary Philippe [facility] ENTERED: 08/16/25 SP TYPE: Cytology OTHR DR: Laure Salvador MD ORDERED: Cyto-enhanced ----- ------- Signed (signature on file) Fatemeh Dave 08/21/25 0841 ----- ------- END OF REPORT us Generic External Data Provider LAB CYTOLOGY IRCO CANO Final Result [facility] [address] [place] [address] [phone] * BI US Breast Limited Left (11/15/2024 2:30 PM EST) Anatomical Region Laterality Modality Breast Left Ultrasound 11/15/2024 2:30 PM EST Narrative 11/15/2024 2:58 PM EST [facility] [address] [place] [address] Ultrasound Report Signed Patient: Brittani Lin#: [id number] : 1980 Acct:[id number] Age/Sex: 44 / F ADM Date: 11/15/24 Loc: HO.MAMMO Attending Dr: Laure Salvador MD Ordering Physician: Laure Salvador MD Date of Service: 11/15/24 Procedure(s): US breast LT limited mamm only Accession Number(s): [id number] cc: Laure Salvador MD EXAMINATION: MM DIAGNOSTIC [...] by: Skye Doan DO 11/15/2024 02:56 PM [facility] Dictated By: Skye Doan DO Signed By: <Electronically signed by Skye Doan DO in OV> 11/15/24 1456 DD/ 1430 TD/TT: 11/15/24 1452 Engagement Director: Procedure Note Donotuseinterpreter, Image - 11/15/[address] [place] [address] Ultrasound Report Signed Patient: Brittani Lin R#: [id number] : 1980Acct:[id number] Age/Sex: 44 / FADM Date: 11/15/24 Loc: MAMMO Attending Dr: Laure Salvador MD Ordering Physician: Laure Salvador MD Date of Service: 11/15/24 Procedure(s): US breast LT limited mamm only Accession Number(s): [id number] cc: Laure Salvador MD EXAMINATION: MM DIAGNOSTIC [...] DO 11/15/2024 02:56 PM EST RP Workstation: [employer] Dictated By: Skye Doan DO Signed By: <Electronically signed by Skye Doan DO in OV> 11/15/24 1456 DD/ 1430 TD/TT: 11/15/24 1452 Engagement Director: us Laure Salvador MD IMG US PROCEDURES Edited Resu lt - Final * THINPREP TIS PAP AND HPV mRNA E6/E7, CT/NG, TRICH (10/20/2021 4:29 PM EST) Chlamydia trachomatis RNA, TMA, Urogenital NOT DETECTED NOT DETECTED [facility] Clinical Information: Z113 Z124 [facility] COMMENT SEE COMMENT [facility] Comment: The analytical performance characteristics of this assay, when used to test SurePath(TM) specimens have been determined by [employer]. The modifications have not been cleared or approved by the FDA. This assay has been validated pursuant to the CLIA regulations and is used for clinical purposes. For additional information, please refer to https://education.Sound Clips/faq/GXX440 (This link is being provided for information/ [...] along with historic and current clinical information. Comment: This Pap test has been evaluated with computer assisted technology. [facility] Dental Receptionist: SEE COMMENT [facility] Comment: ED, CT(ASCP) CT screening location: [place] [address] HPV nRNA E6/E7 Not Detected Not Detected [facility] Comment: Methodology: Pocket Maker-Mediated Amplification This assay detects E6/E7 viral messenger RNA (mRNA) from 14 high-risk HPV types (16,18,31,33,35,39,45,51,52,56,58,59,66,68). The analytical performance characteristics of this assay have been determined by [employer]. The modifications have not been cleared or approved by the FDA. This assay has been validated pursuant to the CLIA regulations and is used for clinical purposes. For additional information, please refer to http://WizIQ.Sound Clips/faq/JUH972o3 (This link if provided for information/ educational [...] LAB SYSTEM Statement Of Adequacy: SEE COMMENT [facility] Comment: Satisfactory for evaluation. Endocervical/transformation zone component present. Age and/or menstrual status not provided Trichomonas vaginalis, QL, TMA, PAP Vial NOT DETECTED NOT DETECTED [facility] Comment: The analytical performance characteristics of this assay have been determined by [employer] [facility]. The modifications have not been cleared or approved by the FDA. This assay has been validated pursuant to the CLIA regulations and is used for clinical purposes. For additional information, please refer to http://education.[employer] Cl[employer]/ faq/Trichomonastma (This link is being provided for information/ educational purposes only.) 10/20/2021 4:29 PM EST Shirin Newberry CNM LAB PATHOLOGY ORDERABLES Final Result [facility] [address] [place] [address], from Last 3 Months or Most Recently Relevant to Health Maintenance Insurance [facility] Care Teams Probation Officer Relationship Specialty Start Date End Date Laure Salvador MD [address] [place] [address] [place] [address] PCP - General Family Medicine 11/14/18
--- OUTSIDE RECORDS SUMMARY | 2025-10-17 21:32 | XMS_ITS | Encounter Summary ---
Author Organization [employer] Address [address] [place] [id number] Care Team Providers Care Pinking Machine Operator Name Role Phone Laure Salvador MD Primary Care Provider [phone] Reason for Referral * Consultation (Routine) - Closed Specialty Diagnoses / Procedures Referred By Contada t Referred To Contact Urology Diagnoses Other hydronephrosis Danica Ponce MD [address] [place] [address] Phone: tel: fax: [facility] [address] [place], [place] Phone: tel: fax: Referral ID Status Reason Start Date Expiration Date V isits Requested Visits Authorized [id number] Closed Specialty Services Required 08/14/2025 08/13/2026 10 10 Encounter Details Date Type Department Care Team (Late st Contact Info) Description 06/21/2025 Orders Only [facility] [address] [place] [address] Danica Ponce MD [address] [place] [address] Other hydronephrosis (Primary Dx) Social History Tobacco [...] documented as of this encounter Care Teams Pinking Machine Operator Relationship Specialty Start Date End Date Laure Salvador MD [address] [place] [address] PCP - General Family Medicine 11/14/18 documented as of this encounter
--- OUTSIDE RECORDS SUMMARY | 2025-10-17 21:32 | XMS_ITS | Encounter Summary ---
Author Organization [employer] Address [address] [place] [address] [address] [place] [address] Care Team Providers Care Oyster Grower Name Role Phone Laure Salvador MD Primary Care Provider [phone] Reason for Visit * Reason Comments Med Refill Encounter Details Date Type Department Care Team ([facility] st Contact Info) Description 04/13/2024 Refill [facility] [address] [place], [place] [phone] Laure Salvador MD [address] [place] [address] Social History Tobacco Use Types Packs/Day Years [...] documented as of this encounter Care Teams Oyster Grower Relationship Specialty Start Date End Date Laure Salvador MD [address] [place] [address] PCP - General Family Medicine 11/14/18 documented as of this encounter
--- OUTSIDE RECORDS SUMMARY | 2025-10-17 21:32 | XMS_ITS | Encounter Summary ---
Author Organization [employer] [place] [employer] Address [address] [place] [address] [address] [place] [address] Care Team Providers Care Order Make Up Clerk Name Role Phone Laure Salvador MD Primary Care Provider [phone] Reason for Visit * Reason Comments Med Refill Encounter Details Date Type Department Care Team ([facility] st Contact Info) Description 04/22/2024 Refill [facility] [address] [place], [place] [phone] Laure Salvador MD [address] [place] [address] Social History Tobacco Use Types Packs/Day Years [...] documented as of this encounter Care Teams Order Make Up Clerk Relationship Specialty Start Date End Date Laure Salvador MD [address] [place] [id number] PCP - General Family Medicine 11/14/18 documented as of this encounter
--- OUTSIDE RECORDS SUMMARY | 2025-10-17 21:32 | XMS_ITS | Encounter Summary ---
Author Organization [employer] Address [address] [place] [address] [address] [place] [address] Care Team Providers Care Fiber Optic Central Office Installer Name Role Phone Laure Salvador MD Primary Care Provider [phone] Encounter Details Date Type Department Care Team ([facility] Contact Info) Description 03/28/2023 Abstract [facility] [address] [place], [place] [phone] Laure Salvador MD [address] [place] [address] Social History Tobacco Use Types Packs/Day Years [...] on filedocumented in this encounter Care Teams Fiber [employer] Central Office Installer Relationship Specialty Start Date End Date Laure Salvador MD [address] [place], [place] [phone] PCP - General Family Medicine 11/14/18 documented as of this encounter
== END 2025-10-17 15:00 | disposition home or self-care (01) ==
LOC: HO.LAB 14:59
PROVIDERS: PCP Pediatrics; Visit Provider Nurse Practitioner Family
DX: R31.29 Other microscopic hematuria (principal); R35.0 Frequency of micturition
CPT/HCPCS: 88112; 99212

== ENCOUNTER 2025-10-17 14:59 | Outpatient (AMB) | payer OTHER, SELFPAY ==
--- NOTE | 2025-10-17 15:02 | MHC.OFFVIS ---
Intake Visit Reasons: 2M/CT/labs/Pelvic floor/UA Intake Note: Patient is present for 2M/CT/LABS/PELVIC FLOOR/UA IMAGIN10/08/25 BUN:15 CREAT:0.15 Urology Medication:NONE Antibiotic Allergy:NONE Blood Thinner:ASPIRIN Fisheries Officer Required: No Allergies No Known Allergies Allergy (Verified 10/17/25 15:35) Medication List - Last Reconciled 10/17/25 by RAMONA Montiel-BC orddoiv-olsbsyrrlokrv-iaekneow 250-250-65 mg (Excedrin Extra Strength) 2 tabs PO Q6H PRN HPI Comments Details: Brittani is a very pleasant 44 year old femal patient of Dr. Jeong. She has a past medical history of hydrosalpinx, urinary frequency, pelvic pain, hemorrhagic cyst of the right ovary, herpes simplex virus to infection, and benign left breast cyst. She presents to the office today for follow-up. Of note, patient was seen approximately 2 months ago as a new patient for microscopic hematuria at which time we discussed potential causes of microscopic hematuria as well as further intervention and risks and benefits of these interventions. Recent CT urogram results reviewed with the patient today 10/08 noncontrast acquisition demonstrates no evidence of renal calculi in either kidney. There are numerous left peripelvic simple cysts, and a few right peripelvic simple cyst. Both pre and post contrast imaging of the urinary bladder demonstrates no evidence of calculus, bladder wall thickening, or masses. Per radiology report. No etiology for hematuria is identified. There are no urological calculi, masses, or other significant abnormalities.. No acute findings in the abdomen or pelvis. Urine Cytology: 09/07 Negative for high-grade urothelial carcinoma. In office urinalysis results reviewed with the patient today 3+ microscopic hematuria. When asked she denies any previous smoking history and or workplace chemical exposure. When asked she does report urinary urgency, urinary frequency, and episodes of stress and urge incontinence. She otherwise denies gross/visible hematuria, dysuria, foul smelling urine, changes to urinary stream, flank pain, fever, and or chills. We did discussed at length potential causes of microscopic hematuria as well as lower urinary tract symptoms patient is experiencing. We discussed further treatment options and risks and benefits of these treatment options. I discussed reasons for blood in the urine may include but are not limited to kidney stones, cancer in the urinary tract, kidney stone disease or inflammatory conditions of the urinary tract. I have discussed workup to include cystoscopy evaluation. All questions were answered. She otherwise offers no other issues or concerns at this time. [facility] Medical History Generalized headaches Dizziness Hydrosalpinx Cyst of left breast Breast pain Frequency of urination Pelvic pain Hemorrhagic cyst of right ovary HSV-2 (herpes simplex virus 2) infection Benign breast cyst in female Surgical History H/O ovarian cystectomy Hx of tubal ligation Family History Maternal Aunt History of breast cancer Paternal Aunt History of breast cancer Mother HTN (hypertension) Social History Household Members: Spouse and Children Housing: House Alcohol intake: never Patient Tobacco Use Status: Never used Tobacco Current occupational status: employed Current occupation: [employer] Sexual orientation: Straight/Heterosexual Gender identity: Female Female Reproductive History Menstrual Age of Menarche: 9 Review of Systems Const All systems reviewed & are unremarkable except as noted in HPI and below Physical Exam Const General: cooperative, healthy appearing, comfortable, no acute distress, well developed, alert and awake Orientation/consciousness: patient oriented x3 Limitations: no limitations HEENT Head: Yes normal to inspection, Yes normocephalic and Yes atraumatic Ears: hearing grossly normal bilaterally Eyes General: appearance normal, both eyes and all related structures Neck Neck: Yes normal visual inspection and Yes trachea midline Chest Chest palpation & inspection: normal inspection of the chest Resp Effort & Inspection: normal respiratory effort and able to speak in complete sentences Cardio Rate: regular rate GI Inspection: Yes normal to inspection General: Yes no CVA tenderness Back/Spine/Pelvis Back: no CVA tenderness Skin General skin exam: no rashes or lesions noted Neuro General: patient oriented x3 Extrem General: Yes normal to inspection Psych Appearance: grossly normal and well kempt Mental Status: mental status grossly normal Speech and movement: Normal speech and movement present and Clear speech present Affect: normal affect Attitude: cooperative Thought process: Normal thought process present Thought content: Normal thought content present Insight: Fair insight present (Psych) Judgement: Fair judgement present (Psych) Results Reviewed Results Reviewed: Date of Service: 10/08/25 Procedure(s): CT urogram FINDINGS: LUNG BASES: Lung bases are clear. There is minor scarring or atelectasis in the right middle lobe and medial right lower lobe with minor dependent atelectasis. There are no effusions. The heart size is normal. Normal GE junction. LIVER, GALLBLADDER, AND BILIARY TREE: The liver is normal in size, shape, and attenuation. No focal hepatic lesion or biliary ductal dilatation is present. The gallbladder is unremarkable with no evidence of radiopaque gallstones, gallbladder wall thickening, or obvious pericholecystic inflammatory changes. PANCREAS: Unremarkable. SPLEEN: Unremarkable. ADRENAL GLANDS: Unremarkable. KIDNEYS AND URETERS: Noncontrast acquisition demonstrates no evidence of renal calculi in either kidney. There are numerous left parapelvic simple cysts, and a few right parapelvic simple cyst. Postcontrast examination with delay demonstrates symmetric enhancement of both kidneys. No evidence of hydronephrosis of either kidney. No evidence of mass, calyceal or ureteral filling defect, or significant perirenal stranding. The ureters are nondilated. BLADDER: Both pre and postcontrast imaging of the urinary bladder demonstrates no evidence of calculus, wall thickening, or mass lesion. GASTROINTESTINAL TRACT: The stomach is somewhat decompressed. The GE junction appears normal. The duodenum appears normal. The small bowel is normal in caliber and course without evidence of wall thickening or inflammation. No CT evidence of appendicitis is seen. The colon is normal in caliber, course, and appearance without wall thickening or inflammation. The rectum demonstrates no abnormalities. ABDOMINAL WALL: No significant hernia is appreciated. LYMPH NODES: There is no abnormal lymphadenopathy present. VASCULAR: The vascular structures are normal. PELVIC VISCERA: The uterus and adnexal structures are normal in appearance. There is a corpus luteal cyst in the right ovary. There is a small left-sided hydrosalpinx, seen on previous ultrasound imaging. OSSEUS STRUCTURES: There is no suspicious lytic or blastic bone lesion identified. Severe disc degeneration is present at L5-S1 with sclerosis of the endplates and disc vacuum phenomenon. There is transitional lumbosacral anatomy noted. IMPRESSION: 1. No etiology for hematuria is identified. There are no urological calculi, masses, or other significant abnormalities. There are bilateral left greater than right parapelvic renal cysts. The ureters and urinary bladder appear normal. 2. No acute findings in the abdomen or pelvis. See the body of the report for ancillary findings. Assessment & Plan Assessment & Plan (1) Microscopic hematuria: Code(s): R31.29 - Other microscopic hematuria Category: Medical (2) Frequency of urination: Code(s): R35.0 - Frequency of micturition Category: Medical Plan In office urinalysis results reviewed with the patient today; as noted above; will send for urine cytology. Recent CT imaging results reviewed with the patient today; as noted above. We did discuss potential causes of microscopic hematuria as well as lower urinary tract symptoms she is experiencing and further treatment options and risks and benefits of these treatment options. All questions were answered. Information provided regarding pelvic floor therapy We did discuss in office cystoscopy as well as urodynamics for further assessment evaluation. Follow-up in 3-6 months with urinalysis and PVR; or sooner with any issues, concerns, and or questions. Orders: Orders AMB Urinalysis Automated Today Z13.9 - Encounter for screening, unspecified Urine Cytology Today R31.29 - Other microscopic hematuria Patient Instructions: The patient had an opportunity to ask questions regarding the treatment plan. All questions were answered. Physical exam, labs, and imaging were discussed and reviewed in detail. As well as risks, benefits, and discussion of treatment choices. No major barriers to understanding were identified. The patient expressed understanding and agreement with the above treatment plan. The patient was made aware they should contact our office by phone for worsening of their current condition, the appearance of new symptoms, or with any questions or concerns. Compliance is encouraged with any medications and follow up testing that is ordered. It is a privilege to be allowed the opportunity to participate in? your urological care.? Again, if you have any questions or concerns If you have any questions or concerns please do not hesitate to contact me. The office is [phone]. This note is constructed using voice recognition software. While every effort has been made to ensure accuracy manager contact errors may have been included. Yours sincerely, MARILEE Montiel Coding Level of Care Code Est Pt Level 3 (86022) Diagnoses Microscopic hematuria R31.29 Frequency of urination R35.0
== END 2025-10-17 15:41 | disposition home or self-care (01) ==
LOC: HO.HUSH 15:00
PROVIDERS: PCP Pediatrics; Visit Provider Nurse Practitioner Family
DX: R31.29 Other microscopic hematuria (principal); R35.0 Frequency of micturition
CPT/HCPCS: 99213